=== PATIENT | female | born 1930 | race Caucasian/White ===

== ENCOUNTER → 2017-10-12 | Outpatient (CLI) | payer MEDICARE, OTHER ==
[2017-10-12 15:37] LABS: CREATINE KINASE 79 U/L (26-192); CREATININE 1.3 mg/dL (0.6-1.0); GFR 38.9
[2017-10-12 15:37] LABS: BLOOD UREA NITROGEN 34 mg/dL (7-20)
[2017-10-12 15:51] LABS: THYROID STIM HORMONE (TSH) 0.846 uIU/mL (0.358-3.74)
[2017-10-12 23:49] LABS: VITAMIN-B12 > 2000 pg/mL (247-911)
== END | disposition home or self-care (01) ==
LOC: LAB 15:01
DX: R26.81 Unsteadiness on feet (principal)
CPT/HCPCS: 36415; 82306; 82550; 82565; 82607; 84443; 84520

== ENCOUNTER → 2017-10-17 | Outpatient (CLI) | payer MEDICARE, OTHER | END | disposition home or self-care (01) | LOC: KCIC CT 09:51 | DX: M50.322 Other cervical disc degeneration at C5-C6 level (principal); M50.323 Other cervical disc degeneration at C6-C7 level; M43.12 Spondylolisthesis, cervical region | CPT/HCPCS: 72125 ==

== ENCOUNTER → 2017-10-23 | Outpatient (CLI) | payer MEDICARE, OTHER | END | disposition home or self-care (01) | LOC: RT 07:20 | DX: R55 Syncope and collapse (principal) | CPT/HCPCS: 95816 ==

== ENCOUNTER → 2017-11-07 | Outpatient (CLI) | payer MEDICARE, OTHER | END | disposition home or self-care (01) | LOC: KCIC US 12:04 | DX: I65.23 Occlusion and stenosis of bilateral carotid arteries (principal) | CPT/HCPCS: 93880 ==

== ENCOUNTER → 2017-11-15 | Outpatient (CLI) | payer MEDICARE, OTHER | END | disposition home or self-care (01) | LOC: KCIC MRI 08:48 | DX: M51.26 Other intervertebral disc displacement, lumbar region (principal); M48.061 Spinal stenosis, lumbar region without neurogenic claudication; M06.9 Rheumatoid arthritis, unspecified; M25.78 Osteophyte, vertebrae; M48.02 Spinal stenosis, cervical region; M47.892 Other spondylosis, cervical region; R29.6 Repeated falls | CPT/HCPCS: 72141; 72146; 72148 ==

== ENCOUNTER → 2018-01-31 | Outpatient (CLI) | payer MEDICARE, OTHER ==
[2018-01-31 11:11] LABS: CREATININE 1.3 mg/dL (0.6-1.0)
[2018-01-31 11:11] LABS: GFR 38.9
== END | disposition home or self-care (01) ==
LOC: CT 10:31
DX: I65.23 Occlusion and stenosis of bilateral carotid arteries (principal)
CPT/HCPCS: 36415; 82565

== ENCOUNTER → 2018-02-06 | Outpatient (CLI) | payer MEDICARE, OTHER ==
[~2018-02-06] MED LIST: CONTRAST GIVEN MC
[2018-02-06] MEDS: SODIUM BICARBONATE VIAL 150 MEQ in IV STERILE WATER 1,000 ML IV (08:12)
[2018-02-06] MEDS: IOHEXOL 300 MG/ML 100ML VIAL. IV (10:18)
== END | disposition home or self-care (01) ==
LOC: CT 06:52
DX: I65.23 Occlusion and stenosis of bilateral carotid arteries (principal); J43.9 Emphysema, unspecified; E03.9 Hypothyroidism, unspecified
CPT/HCPCS: 70498; Q9967

== ENCOUNTER → 2018-12-03 | Outpatient (CLI) | payer MEDICARE, OTHER ==
[2018-02-06 13:05] VITALS: BP 136/71
[~2018-12-03] MED LIST changes: +ASPI-482 PO; -CONTRAST GIVEN MC; +FLUO20TA11 PO; +FOLI1TAB16 PO; +HYDR-2765 PO; +METH2.5T PO; +OMEP20TA8 PO; +TOPI100T8 PO; +TRAM50TA PO
--- NOTE | 2018-12-03 10:56 | CARD ---
MR#: [id number] Date of Study: 12/03/2018 Ordering Physician: EFRAIN JAQUEZ, Referring Physician: EFRAIN JAQUEZ, Tech: Leon Dumont [facility] APPROVED REPORT EXAM: Two-dimensional and M-mode echocardiogram with Doppler and color Doppler. Other Information Quality : Good INDICATION Dyspnea 2D DIMENSIONS RVDd2.3 (2.9-3.5cm)Left Atrium(2D)2.7 (1.6-4.0cm) IVSd0.8 (0.7-1.1cm)Aortic Root(2D)3.0 (2.0-3.7cm) LVDd3.9 (3.9-5.9cm)LVOT Diameter1.8 (1.8-2.4cm) PWd0.9 (0.7-1.1cm)LVDs2.5 (2.5-4.0cm) SV35.8 mlLVEF(%)60.0 (>50%) Aortic Valve AoV Peak Ibrahima.117.3cm/sAoV VTI24.3cm AO Peak GR.5.5mmHgLVOT Peak Ibrahima.98.5cm/s LVOT VTI 22.76cmAO Mean GR.3mmHg REZA (VMAX)1.61kf6YQW (VTI)1.92cm2 Mitral Valve MV E Fwoznexn96.8cm/sMV DECEL WTZL097au MV A Femsjduc575.6cm/sMV E Mean Gr.3mmHg MV HOH42gyW/A Ratio0.7 MV A Grkgcfpz29fvEJF (PHT)2.71cm2 TDI E/Lateral E'6.7E/Medial E'8.8 Pulmonary Valve PV Peak Ojeuymjt16.7cm/sPV Peak Grad.4mmHg RVOT VTI15.4cm Tricuspid Valve TR P. Jncelely608ty/sTR Peak Gr.35mmHg Pulmonary Vein S1 Wzokxwqx39.5cm/sD2 Urpxyqzq55.8cm/s LEFT VENTRICLE The left ventricle is normal size. There is normal left ventricular wall thickness. The left ventricu lar systolic function is normal. The ejection fraction is estimated at 60%. There is normal LV segmen chon wall motion. Transmitral Doppler flow pattern is Grade I-abnormal relaxation pattern. There is no ventricular septal defect visualized. RIGHT VENTRICLE The right ventricle is normal size. There is normal right ventricular wall thickness. The right ventr icular systolic function is normal. ATRIA The left atrium size is normal. The right atrium size is normal. The interatrial septum is intact wit h no evidence for an atrial septal defect or patent foramen ovale as noted on 2-D or Doppler imaging. AORTIC VALVE The aortic valve is normal in structure and function. Doppler and Color Flow revealed trace aortic re gurgitation. There is no significant aortic valvular stenosis. MITRAL VALVE The mitral valve is normal in structure and function. Doppler and Color Flow revealed no mitral valve regurgitation noted. TRICUSPID VALVE The tricuspid valve is normal in structure and function. Doppler and Color Flow revealed mild tricusp id regurgitation. The PA pressure was estimated at 38 mmHg. PULMONIC VALVE The pulmonary valve is normal in structure and function. Doppler and Color Flow revealed trace pulmon ic valvular regurgitation. GREAT VESSELS The aortic root is normal in size. Normal pulmonary venous flow (Doppler). The IVC is normal in size and collapses >50% with inspiration. PERICARDIAL EFFUSION There is no evidence of significant pericardial effusion. Critical Notification Critical Value: No <Conclusion> The left ventricular systolic function is normal. The ejection fraction is estimated at 60%. There is normal LV segmental wall motion. Transmitral Doppler flow pattern is Grade I-abnormal relaxation pattern. Trace aortic regurgitation. Mild tricuspid regurgitation. The PA pressure was estimated at 38 mmHg. There is no evidence of significant pericardial effusion. Signed by : Tj Maldonado, Electronically Approved : 12/03/2018 10:56:20
== END | disposition home or self-care (01) ==
LOC: ECHO 09:29
PROVIDERS: ATTEND Internal Medicine Cardiovascular Disease
DX: I07.1 Rheumatic tricuspid insufficiency (principal)
CPT/HCPCS: 93306

== ENCOUNTER → 2019-02-11 | Outpatient (CLI) | payer MEDICARE, OTHER ==
[2018-02-06 13:05] VITALS: BP 136/71
--- NOTE | 2019-02-11 10:37 | EKG ---
[facility] [address] [place] [address] Test Date: 2019-02-11 Test Time: 10:28:09 Pat Name: NEW GUPTA Department: Room: Gender: F Switchboard Operator: DON : [id number] Requested By: CRUZ AREVALO Order Number: [id number] Reading MD: Measurements Intervals Bryant Rate: 64 P: 90 LA: 174 QRS: 80 QRSD: 80 T: 86 QT: 406 QTc: 423 Interpretive Statements SINUS RHYTHM NO SPECIFIC ECG ABNORMALITIES RI6.01 Unconfirmed report Compared to ECG 08/16/2016 08:31:54 No significant changes
== END | disposition home or self-care (01) ==
LOC: RAD 10:10
PROVIDERS: ATTEND Psychiatry & Neurology Neurology
DX: I49.1 Atrial premature depolarization (principal)
CPT/HCPCS: 93005

== ENCOUNTER → 2019-07-04 | Outpatient (CLI) | payer MEDICARE, OTHER ==
[2019-03-27 11:00] VITALS: BP 137/49
[~2019-07-04] MED LIST changes: +ASPI325T8 PO; +LEVO100T5 PO; +LOVA40TA2 PO; +TIZA4TAB2 PO
[2019-07-04 14:55] LABS: CREATININE 1.4 mg/dL (0.6-1.0); GFR 35.6; POTASSIUM 4.5 mmol/L (3.5-5.1)
== END | disposition home or self-care (01) ==
LOC: LAB 14:13
PROVIDERS: ATTEND Psychiatry & Neurology Neurology
DX: G43.009 Migraine without aura, not intractable, without status migrainosus (principal)
CPT/HCPCS: 36415; 80051; 82565; 84520

== ENCOUNTER → 2019-07-10 | Outpatient (CLI) | payer MEDICARE, OTHER ==
[2019-03-27 11:00] VITALS: BP 137/49
--- NOTE | 2019-07-10 17:07 | RAD ---
CT LUMBAR SPINE WO CONTRAST Indication: Weakness, back pain Technique: Noncontrast CT imaging was performed of the lumbar spine, multiplanar reconstruction images submitted. One or more of the following individualized dose reduction techniques were utilized for this examination: 1. Automated exposure control 2. Adjustment of the mA and/or kV according to patient size 3. Use of iterative reconstruction technique. Comparison: March 24, 2019 CT abdomen pelvis exam and 11/15/2017 lumbar spine MRI exam Findings: There is again advanced L2-3 degenerative disc disease, to a lesser degree more eccentric to left at L5-S1. Lumbar vertebral body stature is similar. There is again endplate irregularity and Schmorl's nodes at L2-3 and to lesser degree at L5-S1. There is mild lumbar levoscoliosis centered near L2-3, nasal left lateral subluxation L2 relative L3. AP alignment is within normal limits. No acute lumbar spine fracture is identified. There is retained stool in segments of the visualized colon. There is colonic diverticulosis. There is calcified plaque near the origins of the renal arteries bilaterally. T12-L1: Neural foramina and spinal canal are adequate. L1-2: There is mild facet degenerative change. Osseous spinal canal and neural foramina are adequate. L2-3: There is again disc osteophyte complex/partially calcified protrusion indenting the ventral thecal sac greatest centrally, spinal canal not significantly narrowed, likely minimal narrowing of the far lateral recesses. There is again facet degenerative change. Left neural foramen is adequate, shms-ac-eavvxost narrowing of the right neural foramen by disc osteophyte complex and facet osteophytes. L3-4: There is again facet degenerative change and buckling of the ligamentum flavum. There is likely unchanged mild narrowing of the far left lateral recess. Neural foramina are adequate. L4-L5: There is again facet degenerative change and buckling of the ligamentum flavum. There is aycp-qm-dqgspfxm narrowing of the far lateral recesses greater on the left, likely mild narrowing of the central canal. There is mild narrowing of the left neural foramen, right neural foramen overall adequate. L5-S1: There is again facet degenerative change. Spinal canal is not significantly narrowed. There is mild narrowing of the left neural foramen, disc osteophyte complex also contacting the extraforaminal left L5 nerve root. Right neural foramen is overall adequate. IMPRESSION: 1. Is likely eywf-uq-nbovkdcz narrowing of the far lateral recesses greater on the left at L4-5, likely mild narrowing of the far lateral recesses bilaterally at L2-3 and on the left at L3-4. 2. There is lbay-de-rivjmzmp narrowing of the right L2-3 neural foramen, minimal narrowing on the left at L4-5 and L5-S1. Disc osteophyte complex is near the extraforaminal left L5 nerve root at L5-S1. Electronically signed by: Jose Oreilly MD (07/10/2019 5:04 PM) [facility]
== END | disposition home or self-care (01) ==
LOC: CT 11:03
PROVIDERS: ATTEND Psychiatry & Neurology Neurology
DX: M51.37 Other intervertebral disc degeneration, lumbosacral region (principal); M48.07 Spinal stenosis, lumbosacral region; M47.817 Spondylosis without myelopathy or radiculopathy, lumbosacral region; M25.78 Osteophyte, vertebrae; K56.41 Fecal impaction; K57.30 Diverticulosis of large intestine without perforation or abscess without bleeding; I70.1 Atherosclerosis of renal artery; W19.XXXA Unspecified fall, initial encounter
CPT/HCPCS: 72131

== ENCOUNTER → 2019-10-21 | Outpatient (CLI) | payer MEDICARE, BC ==
[2019-10-03 11:00] VITALS: BP 142/68
[2019-10-21 10:36] LABS: BASO % 0 % (0-3); EOS # 0.2 x10^3/uL (0.0-0.7); EOS % 2 % (0-3); HEMATOCRIT 31.3 % (36.0-47.0); HEMOGLOBIN 10.2 g/dL (12.0-15.5); LYMPH # 2.1 x10^3/uL (1.0-4.8); LYMPH % 25 % (24-48); MEAN CORPUSCULAR HEMOGLOBIN 31 pg (25-35); MEAN CORPUSCULAR HGB CONC 33 g/dL (31-37); MEAN CORPUSCULAR VOLUME 94 fL (79-100); MONO # 0.6 x10^3/uL (0.0-1.1); MONO % 8 % (0-9); NEUT # 5.3 x10^3/uL (1.8-7.7); NEUT % 65 % (31-73); PLATELET COUNT 177 x10^3/uL (140-400); RED BLOOD COUNT 3.32 x10^6/uL (3.50-5.40); RED CELL DISTRIBUTION WIDTH 16.4 % (11.5-14.5); WHITE BLOOD COUNT 8.2 x10^3/uL (4.0-11.0)
== END | disposition home or self-care (01) ==
LOC: LAB 10:15
PROVIDERS: ATTEND Psychiatry & Neurology Neurology
DX: G43.701 Chronic migraine without aura, not intractable, with status migrainosus (principal)
CPT/HCPCS: 36415; 85025; 85651; 86141

== ENCOUNTER 2020-05-03 08:48 | Inpatient (IN) | payer MEDICARE, BC ==
[~2020-05-03] VITALS: Ht 167.6 cm; Wt 53.0 kg
[2020-05-03] MEDS ORDERED: IV NORMAL SALINE 1000ML BAG 1,000 ML IV SCH ×2 (09:32→13:07)
--- NOTE | 2020-05-03 09:42 | PHYS DOC ---
Past Medical History Past Medical History: Anemia, Arthritis, Cancer, Diverticulitis, Other Additional Past Medical Histor: Area of CA was colon. Past Surgical History: Appendectomy, Cancer Surgery, Cholecystectomy, Hysterectomy, Tonsillectomy, Other Additional Past Surgical Histo: 3 diff.sections of colon removed- ,&,Bilateral cataract surgery. Smoking Status: Never Smoker Alcohol Use: None Drug Use: None General Adult EDM: Chief Complaint: ABDOMINAL PAIN HPI: HPI: Patient is a 89 year old female who presents with 24 hours of crampy diffuse abdominal pain, diarrhea that is non-bloody and nausea. Patient has a history of diverticulitis and symptoms are similar to that. Patient describes the pain as cramping and moderate in severity that is worse with p.o. intake as well as palpation. Pain is nonradiating. Review of Systems: Review of Systems: Constitutional: Denies fever or chills. [] Eyes: Denies change in visual acuity. [] HENT: Denies nasal congestion or sore throat. [] Respiratory: Denies cough or shortness of breath. [] Cardiovascular: Denies chest pain or edema. [] GI: Complains of abdominal pain nausea and diarrhea but no vomiting or blood in her stool : Denies dysuria. [] Musculoskeletal: Denies back pain or joint pain. [] Integument: Denies rash. [] Neurologic: Denies headache, focal weakness or sensory changes. [] Endocrine: Denies polyuria or polydipsia. [] Lymphatic: Denies swollen glands. [] Psychiatric: Denies depression or anxiety. [] Heart Score: Risk Factors: Risk Factors: DM, Current or recent (<one month) smoker, HTN, HLP, family history of CAD, obesity. Risk Scores: Score 0 - 3: 2.5% MACE over next 6 weeks - Discharge Home Score 4 - 6: 20.3% MACE over next 6 weeks - Admit for Clinical Observation Score 7 - 10: 72.7% MACE over next 6 weeks - Early Invasive Strategies Current Medications: Current Medications Medications (Trade) Dose Ordered Sig/Ernst Start Time Stop Time Status Last Admin Dose Admin Dicyclomine HCl (Bentyl) 10 mg 1X ONCE 05/03/20 09:45 05/03/20 09:46 Ondansetron HCl (Zofran) 4 mg 1X ONCE 05/03/20 09:45 05/03/20 09:46 Sodium Chloride 1,000 ml @ 1,000 mls/hr Q1H 05/03/20 09:32 05/03/20 10:31 Allergies: Allergies: Allergies Coded Allergies Type Severity Reaction Last Updated Verified Penicillins Allergy Intermediate Hives 08/16/16 Yes meperidine Allergy Intermediate HAS TOLERATED FENTANYL 10/03/19 Yes morphine Adverse Reaction Intermediate PT STATED MORPHINE ALLERGIE, BUT STATES IT JUST "UPSETS" HER 10/02/19 Yes Physical Exam: PE: Constitutional: Well developed, well nourished, no acute distress, non-toxic appearance. [] HENT: Normocephalic, atraumatic, bilateral external ears normal, no trismus nose normal. [] Eyes: PERRLA, EOMI, conjunctiva normal, no discharge. [] Neck: Normal range of motion, no tenderness, supple, no stridor. [] Cardiovascular:Heart rate regular rhythm, peripheral pulses intact, cap refill is brisk Lungs & Thorax: Bilateral breath sounds clear, no respiratory distress Abdomen: soft, no tenderness, no masses, no pulsatile masses. [] Skin: Warm, dry, no erythema, no rash. [] Back: No tenderness, no CVA tenderness. [] Extremities: No tenderness, no cyanosis, no clubbing, ROM intact, no edema. [] Neurologic: Alert and oriented X 3, normal motor function, normal sensory function, no focal deficits noted. [] Psychologic: Affect normal, judgement normal, mood normal. [] Current Patient Data: Labs: Laboratory Tests Test 05/03/20 09:10 05/03/20 09:45 Urine Collection Type Void Urine Color Straw Urine Clarity Clear Urine pH 5.0 Urine Specific [place] 1.020 Urine Protein 30 mg/dL Urine Glucose (UA) Negative mg/dL Urine Ketones (Stick) Trace mg/dL Urine Blood Negative Urine Nitrite Negative Urine Bilirubin Small Urine Urobilinogen Dipstick 0.2 mg/dL Urine Leukocyte Esterase Trace Urine RBC 0 /HPF Urine WBC 1-4 /HPF Urine Amorphous Sediment Present /HPF Urine Bacteria Few /HPF Urine Hyaline Casts Moderate /HPF Urine Granular Casts Few /HPF Urine Mucus Mod /LPF White Blood Count 9.7 x10^3/uL Red Blood Count 4.09 x10^6/uL Hemoglobin 11.9 g/dL Hematocrit 36.4 % Mean Corpuscular Volume 89 fL Mean Corpuscular Hemoglobin 29 pg Mean Corpuscular Hemoglobin Concent 33 g/dL Red Cell Distribution Width 15.3 % Platelet Count 278 x10^3/uL Neutrophils (%) (Auto) 75 % Lymphocytes (%) (Auto) 17 % Monocytes (%) (Auto) 7 % Eosinophils (%) (Auto) 0 % Basophils (%) (Auto) 1 % Neutrophils # (Auto) 7.3 x10^3/uL Lymphocytes # (Auto) 1.7 x10^3/uL Monocytes # (Auto) 0.6 x10^3/uL Eosinophils # (Auto) 0.0 x10^3/uL Basophils # (Auto) 0.1 x10^3/uL Sodium Level 145 mmol/L Potassium Level 3.7 mmol/L Chloride Level 109 mmol/L Carbon Dioxide Level 20 mmol/L Anion Gap 16 Blood Urea Nitrogen 36 mg/dL Creatinine 1.1 mg/dL Estimated GFR (Cockcroft-Gault) 47.0 BUN/Creatinine Ratio 33 Glucose Level 121 mg/dL Lactic Acid Level 1.6 mmol/L Calcium Level 9.2 mg/dL Total Bilirubin 0.3 mg/dL Aspartate Amino Transf (AST/SGOT) 20 U/L Alanine Aminotransferase (ALT/SGPT) 20 U/L Alkaline Phosphatase 86 U/L Total Protein 7.0 g/dL Albumin 3.4 g/dL Albumin/Globulin Ratio 0.9 Lipase 43 U/L Current Medications Medications (Trade) Dose Ordered Sig/Ernst Route PRN Reason Start Time Stop Time Status Last Admin Dose Admin Sodium Chloride 1,000 ml @ 1,000 mls/hr Q1H IV 05/03/20 09:32 05/03/20 10:31 DC 05/03/20 09:57 Ondansetron HCl (Zofran) 4 mg 1X ONCE IVP 05/03/20 09:45 05/03/20 09:46 DC 05/03/20 09:57 Dicyclomine HCl (Bentyl) 10 mg 1X ONCE IM 05/03/20 09:45 05/03/20 09:46 DC 05/03/20 09:58 Iohexol (Omnipaque 300 Mg/ml) 60 ml 1X ONCE IV 05/03/20 10:45 05/03/20 10:46 DC 05/03/20 10:49 Levofloxacin/ Dextrose 150 ml @ 100 mls/hr 1X ONCE IV 05/03/20 11:30 05/03/20 12:59 Metronidazole 100 ml @ 100 mls/hr 1X ONCE IV 05/03/20 11:30 05/03/20 12:29 Ondansetron HCl (Zofran) 4 mg PRN Q8HRS PRN IV NAUSEA/VOMITING 05/03/20 11:30 05/04/20 11:29 Fentanyl Citrate (Fentanyl 2ml Vial) 12.5 mcg 1X ONCE IVP 05/03/20 11:30 05/03/20 11:43 DC Vital Signs: Vital Signs Date Time Temp Pulse Resp B/P (MAP) Pulse Ox O2 Delivery O2 Flow Rate FiO2 05/03/20 09:05 98.2 79 18 179/82 (114) 100 Room Air 98.2 EKG: EKG: [] Radiology/Procedures: Radiology/Procedures: [][facility] [address] [place], [place] [id number] IMAGING REPORT Signed PATIENT: NEW GUPTA HACCOUNT: [id number] : 1930 LOCATION: ER AGE: 89 SEX: F EXAM STATUS: REG ER ORD. PHYSICIAN: WILL HUTTON MD REASON: abd pain, diarrhea, hx of diverticulitis PROCEDURE: CT ABD PELV W/ IV CONTRST ONLY PQRS Compliance Statement: One or more of the following individualized dose reduction techniques were utilized for this examination: 1. Automated exposure control 2. Adjustment of the mA and/or kV according to patient size 3. Use of iterative reconstruction technique CT abdomen/pelvis with contrast 05/03/2020 9:32 AM INDICATION: Abdominal pain, diarrhea COMPARISON: None available TECHNIQUE: Multiple axial CT images of the abdomen and pelvis were obtained after the intravenous administration of 60 mL Omnipaque 300. Coronal and sagittal reformats are provided. FINDINGS: Lung bases are clear. Heart size is within normal limits. Calcifications within the spleen represent sequela prior granulomatous exposure. Gallbladder surgically absent. Mild intrahepatic and extra hepatic biliary ductal dilatation likely secondary to reservoir effect status post cholecystectomy. Mild fatty atrophy of the pancreas. Adrenal glands are normal in appearance. Abdominal aorta is normal in course and caliber with moderate calcified atheromatous plaque. No pathologically enlarged lymph nodes are identified in the abdomen and pelvis. No free fluid or free intraperitoneal air. The kidneys enhance symmetrically. There is no suspicious renal mass. There is no hydronephrosis. There are no suspected calculi within the kidneys, ureters or urinary bladder. There is presacral edema. Moderate colonic diverticulosis. There is mural edema involving the proximal sigmoid colon findings could reflect nonspecific colitis or diverticulitis. There is sequential bladder wall thickening with pericystic inflammatory changes. Appendix is not definitively visualized. No pericecal inflammatory changes are identified. No suspicious osseous abnormality is identified. IMPRESSION: 1. Colitis or diverticulitis involving the sigmoid colon without peridiverticular abscess or pneumoperitoneum. There is mesenteric edema with presacral edema. 2. Bladder wall thickening with pericystic inflammatory changes as may be seen with infectious or inflammatory cystitis. Findings could be reactive to adjacent inflammation. Electronically signed by: Roro Marquez MD (05/03/2020 11:05 AM) [facility] DICTATED and SIGNED BY: RORO MARQUEZ MD DATE: 05/03/20 1105 Course & Med Decision Making: Course & Med Decision Making Pertinent Labs and Imaging studies reviewed. (See chart for details) [] 89-year-old female presents with abdominal pain. Patient found to have diverticulitis on CT. Patient will need admission for IV antibiotics. Discussed with Dr. Crouch will admit Dragon Disclaimer: Shilpi Disclaimer: This electronic medical record was generated, in whole or in part, using a voice recognition dictation system. Departure Departure Impression: Primary Impression: Diverticulitis Additional Impression: Abdominal pain Disposition: 01 HOME, SELF-CARE Condition: STABLE Referrals: OREN ARCEO MD (PCP) Justicifation of Admission Dx: Justifications for Admission: Justification of Admission Dx: Yes WILL HUTTON MD May 03, 2020 09:42
[2020-05-03] MEDS ORDERED: ONDANSETRON PF 4 MG/2 ML VIAL. IVP ONE (09:45)
[2020-05-03] MEDS ORDERED: DICYCLOMINE 20 MG/2 ML VIAL. IM ONE (09:45)
[2020-05-03 10:09] LABS: BASO # 0.1 x10^3/uL (0.0-0.2); BASO % 1 % (0-3); EOS % 0 % (0-3); HEMATOCRIT 36.4 % (36.0-47.0); HEMOGLOBIN 11.9 g/dL (12.0-15.5); LYMPH # 1.7 x10^3/uL (1.0-4.8); LYMPH % 17 % (24-48); MEAN CORPUSCULAR HEMOGLOBIN 29 pg (25-35); MEAN CORPUSCULAR HGB CONC 33 g/dL (31-37); MEAN CORPUSCULAR VOLUME 89 fL (79-100); MONO # 0.6 x10^3/uL (0.0-1.1); MONO % 7 % (0-9); NEUT # 7.3 x10^3/uL (1.8-7.7); NEUT % 75 % (31-73); PLATELET COUNT 278 x10^3/uL (140-400); RED BLOOD COUNT 4.09 x10^6/uL (3.50-5.40); RED CELL DISTRIBUTION WIDTH 15.3 % (11.5-14.5); WHITE BLOOD COUNT 9.7 x10^3/uL (4.0-11.0)
[2020-05-03 10:27] LABS: CALCIUM 9.2 mg/dL (8.5-10.1); CREATININE 1.1 mg/dL (0.6-1.0); POTASSIUM 3.7 mmol/L (3.5-5.1)
[2020-05-03 10:41] LABS: ALBUMIN 3.4 g/dL (3.4-5.0); ALBUMIN/GLOBULIN RATIO 0.9 (1.0-1.7); TOTAL BILIRUBIN 0.3 mg/dL (0.2-1.0)
[2020-05-03] MEDS ORDERED: IOHEXOL 300 MG/ML 100ML VIAL. IV ONE (10:45)
[2020-05-03 10:57] LABS: BILIRUBIN,URINE SMALL (NEG); CLARITY,URINE CLEAR; COLOR,URINE STRAW
[2020-05-03 10:58] LABS: NITRITE,URINE NEGATIVE (NEG); PROTEIN,URINE 30 mg/dL (NEG-TRACE); UROBILINOGEN,URINE 0.2 mg/dL (0.2 mg/dL)
[2020-05-03 10:59] LABS: AMORPHOUS SEDIMENT,UR PRESENT /HPF; BACTERIA,URINE FEW /HPF (0-FEW); RBC,URINE 0 /HPF (0-2)
[2020-05-03 11:00] LABS: GRANULAR CASTS,URINE FEW /HPF; HYALINE CASTS, URINE MODERATE /HPF
--- NOTE | 2020-05-03 11:08 | RAD ---
PQRS Compliance Statement: One or more of the following individualized dose reduction techniques were utilized for this examination: 1. Automated exposure control 2. Adjustment of the mA and/or kV according to patient size 3. Use of iterative reconstruction technique CT abdomen/pelvis with contrast 05/03/2020 9:32 AM INDICATION: Abdominal pain, diarrhea COMPARISON: None available TECHNIQUE: Multiple axial CT images of the abdomen and pelvis were obtained after the intravenous administration of 60 mL Omnipaque 300. Coronal and sagittal reformats are provided. FINDINGS: Lung bases are clear. Heart size is within normal limits. Calcifications within the spleen represent sequela prior granulomatous exposure. Gallbladder surgically absent. Mild intrahepatic and extra hepatic biliary ductal dilatation likely secondary to reservoir effect status post cholecystectomy. Mild fatty atrophy of the pancreas. Adrenal glands are normal in appearance. Abdominal aorta is normal in course and caliber with moderate calcified atheromatous plaque. No pathologically enlarged lymph nodes are identified in the abdomen and pelvis. No free fluid or free intraperitoneal air. The kidneys enhance symmetrically. There is no suspicious renal mass. There is no hydronephrosis. There are no suspected calculi within the kidneys, ureters or urinary bladder. There is presacral edema. Moderate colonic diverticulosis. There is mural edema involving the proximal sigmoid colon findings could reflect nonspecific colitis or diverticulitis. There is sequential bladder wall thickening with pericystic inflammatory changes. Appendix is not definitively visualized. No pericecal inflammatory changes are identified. No suspicious osseous abnormality is identified. IMPRESSION: 1. Colitis or diverticulitis involving the sigmoid colon without peridiverticular abscess or pneumoperitoneum. There is mesenteric edema with presacral edema. 2. Bladder wall thickening with pericystic inflammatory changes as may be seen with infectious or inflammatory cystitis. Findings could be reactive to adjacent inflammation. Electronically signed by: Maxine Madden MD (05/03/2020 11:05 AM) [facility]
[2020-05-03] MEDS ORDERED: ONDANSETRON PF 4 MG/2 ML VIAL. IV PRN (11:30)
[2020-05-03] MEDS ORDERED: fentaNYL PF VIAL 100 MCG/2 ML VIAL IVP ONE (11:30)
--- NOTE | 2020-05-03 11:54 | PDOC1 ---
History and Physical Date of Admission Date of Admission DATE: 05/03/20 TIME: 11:52 Identification/Chief Complaint Chief Complaint SEEN IN ER WITH ACUTE DIVERTICULITIS, 89 year old female who presents with 24 hours of crampy diffuse abdominal pain, diarrhea that is non-bloody and nausea. Patient has a history of diverticulitis and symptoms are similar Patient describes the pain as cramping and moderate in severity that is worse with p.o. intake as well as palpation. // nonradiating. Past Medical History Past Medical History Past Medical History Past Medical History Past Medical History: Anemia, Arthritis, Cancer, Diverticulitis, Other Additional Past Medical Histor: Area of CA was colon. Past Surgical History: Appendectomy, Cancer Surgery, Cholecystectomy, Hysterectomy, Tonsillectomy, Other Additional Past Surgical Histo: 3 diff.sections of colon removed- ,&,Bilateral cataract surgery. Smoking Status: Never Smoker Alcohol Use: None Drug Use: None FHX HTN Cardiovascular: Hyperlipidemia Pulmonary: No pertinent hx CENTRAL NERVOUS SYSTEM: Migraine GI: Constipation Heme/Onc: Anemia NOS, Cancer Hepatobiliary: No pertinent hx Psych: No pertinent hx Rheumatologic: Rheumatoid arthritis Infectious disease: No pertinent hx Renal/: No pertinent hx Endocrine: Osteopenia Past Surgical History Past Surgical History: Appendectomy, Cholecystectomy, Cataract Removal, Tonsillectomy, Hysterectomy, Colon Resection Family History Family History: Hypertension, Family History Unknown Social History Smoke: <1 pack per day ALCOHOL: none Drugs: None Current Problem List Problem List Problems Medical Problems: (1) Abdominal pain Status: Acute (2) Diverticulitis Status: Acute Current Medications Current Medications Current Medications Sodium Chloride 1,000 ml @ 1,000 mls/hr Q1H IV Last administered on 05/03/20at 09:57; Start 05/03/20 at 09:32; Stop 05/03/20 at 10:31; Status DC Ondansetron HCl (Zofran) 4 mg 1X ONCE IVP Last administered on 05/03/20at 09:57; Start 05/03/20 at 09:45; Stop 05/03/20 at 09:46; Status DC Dicyclomine HCl (Bentyl) 10 mg 1X ONCE IM Last administered on 05/03/20at 09:58; Start 05/03/20 at 09:45; Stop 05/03/20 at 09:46; Status DC Iohexol (Omnipaque 300 Mg/ml) 60 ml 1X ONCE IV Last administered on 05/03/20at 10:49; Start 05/03/20 at 10:45; Stop 05/03/20 at 10:46; Status DC Levofloxacin/ Dextrose 150 ml @ 100 mls/hr 1X ONCE IV ; Start 05/03/20 at 11:30; Stop 05/03/20 at 12:59 Metronidazole 100 ml @ 100 mls/hr 1X ONCE IV ; Start 05/03/20 at 11:30; Stop 05/03/20 at 12:29 Ondansetron HCl (Zofran) 4 mg PRN Q8HRS PRN IV NAUSEA/VOMITING; Start 05/03/20 at 11:30; Stop 05/04/20 at 11:29 Fentanyl Citrate (Fentanyl 2ml Vial) 12.5 mcg 1X ONCE IVP ; Start 05/03/20 at 11:30; Stop 05/03/20 at 11:43; Status DC Active Scripts Active Reported Tizanidine Hcl 4 Mg Tablet 4 Mg PO PRN Q8MIN PRN Lovastatin 40 Mg Tablet 40 Mg PO DAILY Levothyroxine Sodium 100 Mcg Tablet 100 Mcg PO DAILY Aspirin 325 Mg Tablet 325 Mg PO DAILY Hydrocodone-Apap 7.5-325 (Hydrocodone Bit/Acetaminophen) 1 Each Tablet 1 Tab PO PRN Q6HRS PRN Topiramate 100 Mg Tablet 1 Tab PO BID Tramadol Hcl 50 Mg Tablet 50-100 Mg PO PRN Q6HRS Fluoxetine Hcl 20 Mg Tablet 20 Mg PO DAILY Omeprazole 20 Mg Tablet.dr 20 Mg PO DAILY Folic Acid 1 Mg Tablet 1 Mg PO DAILY Methotrexate (Methotrexate Sodium) 2.5 Mg Tablet 15 Mg PO MONDAY Allergies Allergies: Coded Allergies: Penicillins (Verified Allergy, Intermediate, Hives, 08/16/16) meperidine (Verified Allergy, Intermediate, HAS TOLERATED FENTANYL, 10/03/19) morphine (Verified Adverse Reaction, Intermediate, PT STATED MORPHINE ALLERGIE, BUT STATES IT JUST "UPSETS" HER, 10/02/19) ROS Review of System Review of Systems: Constitutional: Denies fever or chills. [] Eyes: Denies change in visual acuity. [] HENT: Denies nasal congestion or sore throat. [] Respiratory: Denies cough or shortness of breath. [] Cardiovascular: Denies chest pain or edema. [] GI: Complains of abdominal pain nausea and diarrhea but no vomiting or blood in her stool : Denies dysuria. [] Musculoskeletal: Denies back pain or joint pain. [] Integument: Denies rash. [] Neurologic: Denies headache, focal weakness or sensory changes. [] Endocrine: Denies polyuria or polydipsia. [] Lymphatic: Denies swollen glands. [] Psychiatric: Denies depression or anxiety. [] 14 pt ros otherwise neg Physical Exam Physical Exam Constitutional: Well developed, well nourished, no acute distress, non-toxic appearance. [] HENT: Normocephalic, atraumatic, bilateral external ears normal, no trismus nose normal. [] Eyes: PERRLA, EOMI, conjunctiva normal, no discharge. [] Neck: Normal range of motion, no tenderness, supple, no stridor. [] Cardiovascular:Heart rate regular rhythm, peripheral pulses intact, cap refill is brisk Lungs & Thorax: Bilateral breath sounds clear, no respiratory distress Abdomen: soft, no tenderness, no masses, no pulsatile masses. [] Skin: Warm, dry, no erythema, no rash. [] Back: No tenderness, no CVA tenderness. [] Extremities: No tenderness, no cyanosis, no clubbing, ROM intact, no edema. [] Neurologic: Alert and oriented X 3, normal motor function, normal sensory function, no focal deficits noted. [] Psychologic: Affect normal, judgment normal, mood normal. [] General: Alert, Oriented X3, Cooperative, No acute distress Lungs: Clear to auscultation, Normal air movement Heart: no murmurs Breasts: Not examined Abdomen: Soft Rectal Exam: not examined Extremities: No cyanosis Skin: No significant lesion Neuro: Normal speech, Cranial nerves 3-12 NL Psych/Mental Status: Mental status NL, Mood NL Vitals Vitals Vital Signs Date Time Temp Pulse Resp B/P (MAP) Pulse Ox O2 Delivery O2 Flow Rate FiO2 05/03/20 09:05 98.2 79 18 179/82 (114) 100 Room Air 98.2 Labs Labs Laboratory Tests Test 05/03/20 09:10 05/03/20 09:45 Urine Collection Type Void Urine Color Straw Urine Clarity Clear Urine pH 5.0 (<5.0-8.0) Urine Specific [place] 1.020 (1.000-1.030) Urine Protein 30 mg/dL (NEG-TRACE) Urine Glucose (UA) Negative mg/dL (NEG) Urine Ketones (Stick) Trace mg/dL (NEG) Urine Blood Negative (NEG) Urine Nitrite Negative (NEG) Urine Bilirubin Small (NEG) Urine Urobilinogen Dipstick 0.2 mg/dL (0.2 mg/dL) Urine Leukocyte Esterase Trace (NEG) Urine RBC 0 /HPF (0-2) Urine WBC 1-4 /HPF (0-4) Urine Amorphous Sediment Present /HPF Urine Bacteria Few /HPF (0-FEW) Urine Hyaline Casts Moderate /HPF Urine Granular Casts Few /HPF Urine Mucus Mod /LPF White Blood Count 9.7 x10^3/uL (4.0-11.0) Red Blood Count 4.09 x10^6/uL (3.50-5.40) Hemoglobin 11.9 g/dL (12.0-15.5) Hematocrit 36.4 % (36.0-47.0) Mean Corpuscular Volume 89 fL (79-100) Mean Corpuscular Hemoglobin 29 pg (25-35) Mean Corpuscular Hemoglobin Concent 33 g/dL (31-37) Red Cell Distribution Width 15.3 % (11.5-14.5) Platelet Count 278 x10^3/uL (140-400) Neutrophils (%) (Auto) 75 % (31-73) Lymphocytes (%) (Auto) 17 % (24-48) Monocytes (%) (Auto) 7 % (0-9) Eosinophils (%) (Auto) 0 % (0-3) Basophils (%) (Auto) 1 % (0-3) Neutrophils # (Auto) 7.3 x10^3/uL (1.8-7.7) Lymphocytes # (Auto) 1.7 x10^3/uL (1.0-4.8) Monocytes # (Auto) 0.6 x10^3/uL (0.0-1.1) Eosinophils # (Auto) 0.0 x10^3/uL (0.0-0.7) Basophils # (Auto) 0.1 x10^3/uL (0.0-0.2) Sodium Level 145 mmol/L (136-145) Potassium Level 3.7 mmol/L (3.5-5.1) Chloride Level 109 mmol/L (98-107) Carbon Dioxide Level 20 mmol/L (21-32) Anion Gap 16 (6-14) Blood Urea Nitrogen 36 mg/dL (7-20) Creatinine 1.1 mg/dL (0.6-1.0) Estimated GFR (Cockcroft-Gault) 47.0 BUN/Creatinine Ratio 33 (6-20) Glucose Level 121 mg/dL (70-99) Lactic Acid Level 1.6 mmol/L (0.4-2.0) Calcium Level 9.2 mg/dL (8.5-10.1) Total Bilirubin 0.3 mg/dL (0.2-1.0) Aspartate Amino Transf (AST/SGOT) 20 U/L (15-37) Alanine Aminotransferase (ALT/SGPT) 20 U/L (14-59) Alkaline Phosphatase 86 U/L (46-116) Total Protein 7.0 g/dL (6.4-8.2) Albumin 3.4 g/dL (3.4-5.0) Albumin/Globulin Ratio 0.9 (1.0-1.7) Lipase 43 U/L (73-393) Laboratory Tests Test 05/03/20 09:10 05/03/20 09:45 Urine Collection Type Void Urine Color Straw Urine Clarity Clear Urine pH 5.0 (<5.0-8.0) Urine Specific [place] 1.020 (1.000-1.030) Urine Protein 30 mg/dL (NEG-TRACE) Urine Glucose (UA) Negative mg/dL (NEG) Urine Ketones (Stick) Trace mg/dL (NEG) Urine Blood Negative (NEG) Urine Nitrite Negative (NEG) Urine Bilirubin Small (NEG) Urine Urobilinogen Dipstick 0.2 mg/dL (0.2 mg/dL) Urine Leukocyte Esterase Trace (NEG) Urine RBC 0 /HPF (0-2) Urine WBC 1-4 /HPF (0-4) Urine Amorphous Sediment Present /HPF Urine Bacteria Few /HPF (0-FEW) Urine Hyaline Casts Moderate /HPF Urine Granular Casts Few /HPF Urine Mucus Mod /LPF White Blood Count 9.7 x10^3/uL (4.0-11.0) Red Blood Count 4.09 x10^6/uL (3.50-5.40) Hemoglobin 11.9 g/dL (12.0-15.5) Hematocrit 36.4 % (36.0-47.0) Mean Corpuscular Volume 89 fL (79-100) Mean Corpuscular Hemoglobin 29 pg (25-35) Mean Corpuscular Hemoglobin Concent 33 g/dL (31-37) Red Cell Distribution Width 15.3 % (11.5-14.5) Platelet Count 278 x10^3/uL (140-400) Neutrophils (%) (Auto) 75 % (31-73) Lymphocytes (%) (Auto) 17 % (24-48) Monocytes (%) (Auto) 7 % (0-9) Eosinophils (%) (Auto) 0 % (0-3) Basophils (%) (Auto) 1 % (0-3) Neutrophils # (Auto) 7.3 x10^3/uL (1.8-7.7) Lymphocytes # (Auto) 1.7 x10^3/uL (1.0-4.8) Monocytes # (Auto) 0.6 x10^3/uL (0.0-1.1) Eosinophils # (Auto) 0.0 x10^3/uL (0.0-0.7) Basophils # (Auto) 0.1 x10^3/uL (0.0-0.2) Sodium Level 145 mmol/L (136-145) Potassium Level 3.7 mmol/L (3.5-5.1) Chloride Level 109 mmol/L (98-107) Carbon Dioxide Level 20 mmol/L (21-32) Anion Gap 16 (6-14) Blood Urea Nitrogen 36 mg/dL (7-20) Creatinine 1.1 mg/dL (0.6-1.0) Estimated GFR (Cockcroft-Gault) 47.0 BUN/Creatinine Ratio 33 (6-20) Glucose Level 121 mg/dL (70-99) Lactic Acid Level 1.6 mmol/L (0.4-2.0) Calcium Level 9.2 mg/dL (8.5-10.1) Total Bilirubin 0.3 mg/dL (0.2-1.0) Aspartate Amino Transf (AST/SGOT) 20 U/L (15-37) Alanine Aminotransferase (ALT/SGPT) 20 U/L (14-59) Alkaline Phosphatase 86 U/L (46-116) Total Protein 7.0 g/dL (6.4-8.2) Albumin 3.4 g/dL (3.4-5.0) Albumin/Globulin Ratio 0.9 (1.0-1.7) Lipase 43 U/L (73-393) Images Images PQRS Compliance Statement: One or more of the following individualized dose reduction techniques were utilized for this examination: 1. Automated exposure control 2. Adjustment of the mA and/or kV according to patient size 3. Use of iterative reconstruction technique CT abdomen/pelvis with contrast 05/03/2020 9:32 AM INDICATION: Abdominal pain, diarrhea COMPARISON: None available TECHNIQUE: Multiple axial CT images of the abdomen and pelvis were obtained after the intravenous administration of 60 mL Omnipaque 300. Coronal and sagittal reformats are provided. FINDINGS: Lung bases are clear. Heart size is within normal limits. Calcifications within the spleen represent sequela prior granulomatous exposure. Gallbladder surgically absent. Mild intrahepatic and extra hepatic biliary ductal dilatation likely secondary to reservoir effect status post cholecystectomy. Mild fatty atrophy of the pancreas. Adrenal glands are normal in appearance. Abdominal aorta is normal in course and caliber with moderate calcified atheromatous plaque. No pathologically enlarged lymph nodes are identified in the abdomen and pelvis. No free fluid or free intraperitoneal air. The kidneys enhance symmetrically. There is no suspicious renal mass. There is no hydronephrosis. There are no suspected calculi within the kidneys, ureters or urinary bladder. There is presacral edema. Moderate colonic diverticulosis. There is mural edema involving the proximal sigmoid colon findings could reflect nonspecific colitis or diverticulitis. There is sequential bladder wall thickening with pericystic inflammatory changes. Appendix is not definitively visualized. No pericecal inflammatory changes are identified. No suspicious osseous abnormality is identified. IMPRESSION: 1. Colitis or diverticulitis involving the sigmoid colon without peridiverticular abscess or pneumoperitoneum. There is mesenteric edema with presacral edema. 2. Bladder wall thickening with pericystic inflammatory changes as may be seen with infectious or inflammatory cystitis. Findings could be reactive to adjacent inflammation. Electronically signed by: Roro Madden MD (05/03/2020 11:05 AM) [facility] DICTATED and SIGNED BY: RORO MADDEN MD DATE: 05/03/20 110 VTE Prophylaxis Ordered VTE Prophylaxis Devices: Yes VTE Pharmacological Prophylaxi: Yes Assessment/Plan Assessment/Plan IMPRESSION: 1. ACUTE diverticulitis involving the sigmoid colon without peridiverticular abscess or pneumoperitoneum. LIKELY ISCHEMIC There is mesenteric edema with presacral edema. 2. Bladder wall thickening with pericystic inflammatory changes as may be seen with infectious or inflammatory cystitis. 3. CKD STAGE 3 4. metabolic acidosis 5. 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 PLAN ADMIT gi consult emperic iv antibiotics npo IV FLUID SUPPORT BOWEL REST Full code IV PAIN CONTROL dvt prophylaxis Justicifation of Admission Dx: Justifications for Admission: Justification of Admission Dx: Yes BHANU SPARKS MD May 03, 2020 11:54
[2020-05-03] MEDS: IV NORMAL SALINE 1000ML BAG 1,000 ML IV SCH (12:59)
[2020-05-03 13:07] VITALS: BP 162/52
[2020-05-03] MEDS ORDERED: FERR325T14 PO (13:11)
[2020-05-03] MEDS ORDERED: ACETAMINOPHEN 325 MG TABLET. PO PRN (13:15)
[2020-05-03] MEDS ORDERED: DOCUSATE SODIUM 100 MG CAPSULE. PO PRN (13:15)
[2020-05-03] MEDS ORDERED: guaiFENesin ORAL 200 MG/10 ML LIQUID. PO PRN (13:15)
[2020-05-03] MEDS ORDERED: cloNIDine HCL 0.1 MG TABLET PO PRN (13:15)
[2020-05-03] MEDS ORDERED: 0.9 % SODIUM CHLORIDE 10 ML DISP.SYRIN. IV PRN (13:15)
[2020-05-03] MEDS: IPRATRPIUM/ALBUTEROL 0.5/2.5MG 3 ML NEBU. NEB SCH ×3 (13:15→20:21)
--- NOTE | 2020-05-03 13:45 | PDOC2 ---
CONSULT Date of Consult Date of Consult DATE: 05/03/20 TIME: 13:43 Reason for Consult Reason for Consult: LLQ pain/diarrhea/hx colon cancer s/p resection Past Medical History Cardiovascular: Hyperlipidemia Pulmonary: No pertinent hx CENTRAL NERVOUS SYSTEM: Migraine GI: Constipation Heme/Onc: Anemia NOS, Cancer Hepatobiliary: No pertinent hx Psych: No pertinent hx Rheumatologic: Rheumatoid arthritis Infectious disease: No pertinent hx Renal/: No pertinent hx Endocrine: Osteopenia Past Surgical History Past Surgical History: Appendectomy, Cholecystectomy, Cataract Removal, Tonsillectomy, Hysterectomy, Colon Resection Family History Family History: Family History Unknown Social History ALCOHOL: none Drugs: None Current Problem List Problem List Problems Medical Problems: (1) Abdominal pain Status: Acute (2) Diverticulitis Status: Acute Current Medications Current Medications Current Medications Sodium Chloride 1,000 ml @ 1,000 mls/hr Q1H IV Last administered on 05/03/20at 09:57; Start 05/03/20 at 09:32; Stop 05/03/20 at 10:31; Status DC Ondansetron HCl (Zofran) 4 mg 1X ONCE IVP Last administered on 05/03/20at 09:57; Start 05/03/20 at 09:45; Stop 05/03/20 at 09:46; Status DC Dicyclomine HCl (Bentyl) 10 mg 1X ONCE IM Last administered on 05/03/20at 09:58; Start 05/03/20 at 09:45; Stop 05/03/20 at 09:46; Status DC Iohexol (Omnipaque 300 Mg/ml) 60 ml 1X ONCE IV Last administered on 05/03/20at 10:49; Start 05/03/20 at 10:45; Stop 05/03/20 at 10:46; Status DC Levofloxacin/ Dextrose 150 ml @ 100 mls/hr 1X ONCE IV Last administered on 05/03/20at 12:59; Start 05/03/20 at 11:30; Stop 05/03/20 at 12:59; Status DC Metronidazole 100 ml @ 100 mls/hr 1X ONCE IV Last administered on 05/03/20at 11:56; Start 05/03/20 at 11:30; Stop 05/03/20 at 12:29; Status DC Ondansetron HCl (Zofran) 4 mg PRN Q8HRS PRN IV NAUSEA/VOMITING; Start 05/03/20 at 11:30; Stop 05/03/20 at 13:38; Status DC Fentanyl Citrate (Fentanyl 2ml Vial) 12.5 mcg 1X ONCE IVP Last administered on 05/03/20at 11:55; Start 05/03/20 at 11:30; Stop 05/03/20 at 11:43; Status DC Sodium Chloride 1,000 ml @ 80 mls/hr [id number] IV Last administered on 05/03/20at 12:59; Start 05/03/20 at 13:00 Sodium Chloride (Normal Saline Flush) 3 ml QSHIFT PRN IV AFTER MEDS AND BLOOD DRAWS; Start 05/03/20 at 13:15 Sodium Chloride 1,000 ml @ 80 mls/hr [id number] IV ; Start 05/03/20 at 13:07; Status UNV Ondansetron HCl (Zofran) 4 mg PRN Q4HRS PRN IV NAUSEA/VOMITING; Start 05/03/20 at 13:15 Acetaminophen (Tylenol) 650 mg PRN Q4HRS PRN PO TEMP OVER 100.4F OR MILD PAIN; Start 05/03/20 at 13:15 Clonidine HCl (Catapres) 0.1 mg PRN Q6HRS PRN PO SBP>160 OR DBP>90; Start 05/03/20 at 13:15 Docusate Sodium (Colace) 100 mg PRN BID PRN PO HARD STOOLS; Start 05/03/20 at 13:15 Albuterol/ Ipratropium (Duoneb) 3 ml Q4HRS NEB ; Start 05/03/20 at 13:15 Guaifenesin (Robitussin) 200 mg PRN Q4HRS PRN PO COUGH; Start 05/03/20 at 13:15 Enoxaparin Sodium (Lovenox 40mg Syringe) 40 mg Q24H SQ ; Start 05/03/20 at 14:00 Levofloxacin/ Dextrose 50 ml @ 50 mls/hr Q24H IV ; Start 05/04/20 at 13:00 Metronidazole 100 ml @ 100 mls/hr Q12HR IV ; Start 05/03/20 at 21:00 Active Scripts Active Reported Ferrous Sulfate 325 Mg Tablet 325 Mg PO DAILY Tizanidine Hcl 4 Mg Tablet 4 Mg PO PRN Q8MIN PRN Lovastatin 40 Mg Tablet 40 Mg PO DAILY Levothyroxine Sodium 100 Mcg Tablet 100 Mcg PO DAILY Aspirin 325 Mg Tablet 325 Mg PO DAILY Hydrocodone-Apap 7.5-325 (Hydrocodone Bit/Acetaminophen) 1 Each Tablet 1 Tab PO PRN Q6HRS PRN Topiramate 100 Mg Tablet 1 Tab PO BID Fluoxetine Hcl 20 Mg Tablet 20 Mg PO DAILY Omeprazole 20 Mg Tablet.dr 20 Mg PO DAILY Folic Acid 1 Mg Tablet 1 Mg PO DAILY Allergies Allergies: Coded Allergies: Penicillins (Verified Allergy, Intermediate, Hives, 08/16/16) meperidine (Verified Allergy, Intermediate, HAS TOLERATED FENTANYL, 10/03/19) morphine (Verified Adverse Reaction, Intermediate, PT STATED MORPHINE ALLERGIE, BUT STATES IT JUST "UPSETS" HER, 10/02/19) Vitals VITALS Vital Signs Date Time Temp Pulse Resp B/P (MAP) Pulse Ox O2 Delivery O2 Flow Rate FiO2 05/03/20 13:07 98.3 62 16 162/52 (88) 96 Room Air 98.3 Labs Labs Laboratory Tests Test 05/03/20 09:10 05/03/20 09:45 Urine Collection Type Void Urine Color Straw Urine Clarity Clear Urine pH 5.0 (<5.0-8.0) Urine Specific [place] 1.020 (1.000-1.030) Urine Protein 30 mg/dL (NEG-TRACE) Urine Glucose (UA) Negative mg/dL (NEG) Urine Ketones (Stick) Trace mg/dL (NEG) Urine Blood Negative (NEG) Urine Nitrite Negative (NEG) Urine Bilirubin Small (NEG) Urine Urobilinogen Dipstick 0.2 mg/dL (0.2 mg/dL) Urine Leukocyte Esterase Trace (NEG) Urine RBC 0 /HPF (0-2) Urine WBC 1-4 /HPF (0-4) Urine Amorphous Sediment Present /HPF Urine Bacteria Few /HPF (0-FEW) Urine Hyaline Casts Moderate /HPF Urine Granular Casts Few /HPF Urine Mucus Mod /LPF White Blood Count 9.7 x10^3/uL (4.0-11.0) Red Blood Count 4.09 x10^6/uL (3.50-5.40) Hemoglobin 11.9 g/dL (12.0-15.5) Hematocrit 36.4 % (36.0-47.0) Mean Corpuscular Volume 89 fL (79-100) Mean Corpuscular Hemoglobin 29 pg (25-35) Mean Corpuscular Hemoglobin Concent 33 g/dL (31-37) Red Cell Distribution Width 15.3 % (11.5-14.5) Platelet Count 278 x10^3/uL (140-400) Neutrophils (%) (Auto) 75 % (31-73) Lymphocytes (%) (Auto) 17 % (24-48) Monocytes (%) (Auto) 7 % (0-9) Eosinophils (%) (Auto) 0 % (0-3) Basophils (%) (Auto) 1 % (0-3) Neutrophils # (Auto) 7.3 x10^3/uL (1.8-7.7) Lymphocytes # (Auto) 1.7 x10^3/uL (1.0-4.8) Monocytes # (Auto) 0.6 x10^3/uL (0.0-1.1) Eosinophils # (Auto) 0.0 x10^3/uL (0.0-0.7) Basophils # (Auto) 0.1 x10^3/uL (0.0-0.2) Sodium Level 145 mmol/L (136-145) Potassium Level 3.7 mmol/L (3.5-5.1) Chloride Level 109 mmol/L (98-107) Carbon Dioxide Level 20 mmol/L (21-32) Anion Gap 16 (6-14) Blood Urea Nitrogen 36 mg/dL (7-20) Creatinine 1.1 mg/dL (0.6-1.0) Estimated GFR (Cockcroft-Gault) 47.0 BUN/Creatinine Ratio 33 (6-20) Glucose Level 121 mg/dL (70-99) Lactic Acid Level 1.6 mmol/L (0.4-2.0) Calcium Level 9.2 mg/dL (8.5-10.1) Total Bilirubin 0.3 mg/dL (0.2-1.0) Aspartate Amino Transf (AST/SGOT) 20 U/L (15-37) Alanine Aminotransferase (ALT/SGPT) 20 U/L (14-59) Alkaline Phosphatase 86 U/L (46-116) Total Protein 7.0 g/dL (6.4-8.2) Albumin 3.4 g/dL (3.4-5.0) Albumin/Globulin Ratio 0.9 (1.0-1.7) Lipase 43 U/L (73-393) Laboratory Tests Test 05/03/20 09:10 05/03/20 09:45 Urine Collection Type Void Urine Color Straw Urine Clarity Clear Urine pH 5.0 (<5.0-8.0) Urine Specific [place] 1.020 (1.000-1.030) Urine Protein 30 mg/dL (NEG-TRACE) Urine Glucose (UA) Negative mg/dL (NEG) Urine Ketones (Stick) Trace mg/dL (NEG) Urine Blood Negative (NEG) Urine Nitrite Negative (NEG) Urine Bilirubin Small (NEG) Urine Urobilinogen Dipstick 0.2 mg/dL (0.2 mg/dL) Urine Leukocyte Esterase Trace (NEG) Urine RBC 0 /HPF (0-2) Urine WBC 1-4 /HPF (0-4) Urine Amorphous Sediment Present /HPF Urine Bacteria Few /HPF (0-FEW) Urine Hyaline Casts Moderate /HPF Urine Granular Casts Few /HPF Urine Mucus Mod /LPF White Blood Count 9.7 x10^3/uL (4.0-11.0) Red Blood Count 4.09 x10^6/uL (3.50-5.40) Hemoglobin 11.9 g/dL (12.0-15.5) Hematocrit 36.4 % (36.0-47.0) Mean Corpuscular Volume 89 fL (79-100) Mean Corpuscular Hemoglobin 29 pg (25-35) Mean Corpuscular Hemoglobin Concent 33 g/dL (31-37) Red Cell Distribution Width 15.3 % (11.5-14.5) Platelet Count 278 x10^3/uL (140-400) Neutrophils (%) (Auto) 75 % (31-73) Lymphocytes (%) (Auto) 17 % (24-48) Monocytes (%) (Auto) 7 % (0-9) Eosinophils (%) (Auto) 0 % (0-3) Basophils (%) (Auto) 1 % (0-3) Neutrophils # (Auto) 7.3 x10^3/uL (1.8-7.7) Lymphocytes # (Auto) 1.7 x10^3/uL (1.0-4.8) Monocytes # (Auto) 0.6 x10^3/uL (0.0-1.1) Eosinophils # (Auto) 0.0 x10^3/uL (0.0-0.7) Basophils # (Auto) 0.1 x10^3/uL (0.0-0.2) Sodium Level 145 mmol/L (136-145) Potassium Level 3.7 mmol/L (3.5-5.1) Chloride Level 109 mmol/L (98-107) Carbon Dioxide Level 20 mmol/L (21-32) Anion Gap 16 (6-14) Blood Urea Nitrogen 36 mg/dL (7-20) Creatinine 1.1 mg/dL (0.6-1.0) Estimated GFR (Cockcroft-Gault) 47.0 BUN/Creatinine Ratio 33 (6-20) Glucose Level 121 mg/dL (70-99) Lactic Acid Level 1.6 mmol/L (0.4-2.0) Calcium Level 9.2 mg/dL (8.5-10.1) Total Bilirubin 0.3 mg/dL (0.2-1.0) Aspartate Amino Transf (AST/SGOT) 20 U/L (15-37) Alanine Aminotransferase (ALT/SGPT) 20 U/L (14-59) Alkaline Phosphatase 86 U/L (46-116) Total Protein 7.0 g/dL (6.4-8.2) Albumin 3.4 g/dL (3.4-5.0) Albumin/Globulin Ratio 0.9 (1.0-1.7) Lipase 43 U/L (73-393) Assessment/Plan Assessment/Plan LLQ pain- with diarrhea, most likely ischeimc colitis. Infectious colitis and/or diverticulitis possible as well. Plan medical therapy with antibiotics/gut rest/serial labs consider interval Ct scan if clinical course doesn't improve Full note dictated WILL ROSAS MD May 03, 2020 13:45
[2020-05-03] MEDS: ENOXAPARIN 40 MG/0.4 ML SYRINGE. SQ SCH (13:59)
[2020-05-03 15:49] VITALS: BP 139/63
[2020-05-03] MEDS ORDERED: HYDROcodone/APAP 7.5/325MG 1 TAB TABLET PO PRN (17:30)
--- NOTE | 2020-05-03 18:19 | CONS ---
DATE OF CONSULTATION: 05/03/2020 REASON FOR CONSULTATION: Diffuse abdominal pain, diarrhea. HISTORY OF PRESENT ILLNESS: An 89-year-old female with past medical history, which is significant for colon cancer, diverticulitis, arthritis, dementia is admitted to [facility] with acute onset of diarrhea with left lower quadrant abdominal pain. The diarrhea has since resolved. The pain persists. She states she is not passing any flatus at this time, has not had any fevers or chills, not passed any blood. With continued issues and pain, she was then brought to the hospital for further evaluation and care. PAST SURGICAL HISTORY: Status post cholecystectomy, hysterectomy, tonsillectomy, partial colectomy. PAST MEDICAL HISTORY: Anemia, arthritis, colon cancer, diverticulitis, dementia. ALLERGIES: PENICILLIN, MEPERIDINE, AND MORPHINE. MEDICATIONS: Presently include levofloxacin, metronidazole, Lovenox, albuterol, clonidine. SOCIAL HISTORY: She is retired. Does not drink or smoke. FAMILY HISTORY: Noncontributory. REVIEW OF SYSTEMS: Per records. PHYSICAL EXAMINATION: GENERAL: Reveals a thin partially edentulous female. VITAL SIGNS: Temperature is 98.3, pulse 62, respiratory rate 16, blood pressure is 162/52. LUNGS: Clear. CARDIOVASCULAR: Reveals an S1, S2 without S3, S4 or appreciable murmur. ABDOMEN: Reveals hypoactive bowel sounds with mild diffuse right and left lower quadrant tenderness to deep palpation without appreciable hepatosplenomegaly or peritoneal signs. EXTREMITIES: No cyanosis, clubbing or edema. LABORATORY STUDIES: Hemoglobin 11.9, hematocrit 36.4, white count is 9.7, platelet count is 278,000. Sodium 145, potassium 3.7, chloride 109, bicarbonate is 20, BUN 36, creatinine 1.1, glucose is 121. Lactic acid 1.6, calcium is 9.2, total bilirubin 0.3, AST of 20, ALT of 20, alkaline phosphatase of 86, total protein 7.0, albumin 3.4, lipase is 43. CT scan of the abdomen and pelvis reveals sigmoid colon thickening consistent with either acute colitis or diverticulitis, some bladder wall thickening. No free air or obstruction is encountered. Urinalysis, specific gravity 1.020, pH 5.0 with few bacteria. IMPRESSION: Left lower quadrant abdominal pain and diarrhea, most likely secondary to either ischemic colitis and/or recurrent diverticulitis. RECOMMENDATIONS: We will recommend medical therapy in view of the patient's age, antibiotics, gut rest, fluids, analgesics, antiemetics. Interval CAT scan would be suggested. If the patient's clinical course does not continue to improve, to look for abscess, perforation, gangrene, patient's increased risk for any interventions either endoscopically or surgically with her age and comorbidities. WILL ROSAS MD DR: BARNEY/frances JOB#: [id number] / [id number] BHANU Lema MD Records, Medical
[2020-05-03 19:38] VITALS: BP 143/51
[2020-05-03] MEDS: ATORVASTATIN CALCIUM 10 MG TABLET. PO SCH (20:35)
[2020-05-03] MEDS: TOPIRAMATE 100 MG TABLET. PO SCH (20:35)
[2020-05-03] MEDS ORDERED: ALBUTEROL SULFATE 2.5 MG/3 ML NEBU. NEB PRN (20:45)
[2020-05-03 22:35] VITALS: BP 114/53
[2020-05-04] MEDS: ZOLPIDEM 5 MG TABLET. PO PRN ×2 (00:52→20:59)
[2020-05-04] MEDS: IV NORMAL SALINE 1000ML BAG 1,000 ML IV SCH ×2 (00:53→14:00)
--- NOTE | 2020-05-04 02:47 | NUR ---
0300 vitals were skipped. patient would like to sleep.
[2020-05-04 06:15] LABS: BASO % 0 % (0-3); EOS # 0.1 x10^3/uL (0.0-0.7); EOS % 1 % (0-3); HEMATOCRIT 34.7 % (36.0-47.0); LYMPH # 1.9 x10^3/uL (1.0-4.8); LYMPH % 19 % (24-48); MEAN CORPUSCULAR HEMOGLOBIN 29 pg (25-35); MEAN CORPUSCULAR HGB CONC 32 g/dL (31-37); MEAN CORPUSCULAR VOLUME 91 fL (79-100); MONO # 0.9 x10^3/uL (0.0-1.1); MONO % 9 % (0-9); NEUT # 7.1 x10^3/uL (1.8-7.7); NEUT % 71 % (31-73); PLATELET COUNT 256 x10^3/uL (140-400); RED BLOOD COUNT 3.83 x10^6/uL (3.50-5.40); RED CELL DISTRIBUTION WIDTH 15.3 % (11.5-14.5); WHITE BLOOD COUNT 9.9 x10^3/uL (4.0-11.0)
[2020-05-04 06:32] LABS: ALBUMIN 2.9 g/dL (3.4-5.0); ALBUMIN/GLOBULIN RATIO 0.8 (1.0-1.7); CALCIUM 8.5 mg/dL (8.5-10.1); CREATININE 1.1 mg/dL (0.6-1.0); POTASSIUM 3.5 mmol/L (3.5-5.1); TOTAL BILIRUBIN 0.3 mg/dL (0.2-1.0); TOTAL PROTEIN 6.5 g/dL (6.4-8.2)
[2020-05-04] MEDS: LEVOTHYROXINE 100 MCG TABLET PO SCH (06:33)
[2020-05-04 07:00] VITALS: BP 151/65
[2020-05-04] MEDS: FERROUS SULFATE 325 MG TABLET. PO SCH (08:00)
[2020-05-04] MEDS: ASPIRIN 325 MG TABLET PO SCH (08:00)
[2020-05-04] MEDS: PANTOPRAZOLE IV PUSH 40 MG VIAL. IVP SCH (08:24)
[2020-05-04] MEDS: KETOROLAC 15 MG/ML VIAL. IVP PRN ×2 (08:24→20:59)
[2020-05-04] MEDS: ONDANSETRON PF 4 MG/2 ML VIAL. IV PRN (08:25)
[2020-05-04] MEDS: FLUoxetine HCL 20 MG CAPSULE PO SCH (09:00)
[2020-05-04] MEDS: FOLIC ACID 1 MG TABLET. PO SCH (09:00)
[2020-05-04] MEDS: TOPIRAMATE 100 MG TABLET. PO SCH ×2 (09:00→21:00)
--- NOTE | 2020-05-04 09:33 | NUR ---
SW following. Discussed with RN, pt from home with , room air, NPO. PT/OT ordered. Pt has had [facility] home health in the past. SW will continue to follow.
--- NOTE | 2020-05-04 10:47 | PDOC ---
Date of Service: DATE: 05/04/20 TIME: 10:38 Subjective: Subjective: Thinks abdominal pain is worse. Objective: Objective: On IV Levaquin, Flagyl, and PPI. Reviewed chart - saw here in 2019 for SBO; CT at that time showed SBO w/ transition point in LLQ and subtotal colectomy w/ suspected ileosigmoid anastomosis. Vital Signs: Vital Signs Date Time Temp Pulse Resp B/P (MAP) Pulse Ox O2 Delivery O2 Flow Rate FiO2 05/04/20 07:00 97.7 79 16 151/65 (93) 97 Room Air 97.7 Labs: Laboratory Tests Test 05/04/20 05:45 White Blood Count 9.9 x10^3/uL Red Blood Count 3.83 x10^6/uL Hemoglobin 11.0 g/dL Hematocrit 34.7 % Mean Corpuscular Volume 91 fL Mean Corpuscular Hemoglobin 29 pg Mean Corpuscular Hemoglobin Concent 32 g/dL Red Cell Distribution Width 15.3 % Platelet Count 256 x10^3/uL Neutrophils (%) (Auto) 71 % Lymphocytes (%) (Auto) 19 % Monocytes (%) (Auto) 9 % Eosinophils (%) (Auto) 1 % Basophils (%) (Auto) 0 % Neutrophils # (Auto) 7.1 x10^3/uL Lymphocytes # (Auto) 1.9 x10^3/uL Monocytes # (Auto) 0.9 x10^3/uL Eosinophils # (Auto) 0.1 x10^3/uL Basophils # (Auto) 0.0 x10^3/uL Sodium Level 147 mmol/L Potassium Level 3.5 mmol/L Chloride Level 113 mmol/L Carbon Dioxide Level 19 mmol/L Anion Gap 15 Blood Urea Nitrogen 30 mg/dL Creatinine 1.1 mg/dL Estimated GFR (Cockcroft-Gault) 47.0 BUN/Creatinine Ratio 27 Glucose Level 91 mg/dL Calcium Level 8.5 mg/dL Total Bilirubin 0.3 mg/dL Aspartate Amino Transf (AST/SGOT) 22 U/L Alanine Aminotransferase (ALT/SGPT) 16 U/L Alkaline Phosphatase 72 U/L Total Protein 6.5 g/dL Albumin 2.9 g/dL Albumin/Globulin Ratio 0.8 Imaging: CT A/P IMPRESSION: 1. Colitis or diverticulitis involving the sigmoid colon without peridiverticular abscess or pneumoperitoneum. There is mesenteric edema with presacral edema. 2. Bladder wall thickening with pericystic inflammatory changes as may be seen with infectious or inflammatory cystitis. Findings could be reactive to adjacent inflammation. PE: GEN: NAD LUNGS: CTAB HEART: RRR ABD: quiet, ?somewhat firm, LLQ discomfort NEURO/PSYCH: A & O 3 A/P: LLQ pain - worse today Normocytic anemia (past notes indicate h/o TONE), CKD Abnormal CT - sigmoid colitis or diverticulitis, bladder wall thickening H/o colon cancer/resection - suspected ileosigmoid anastomosis per past imaging H/o SBO vs ileus -- Keep NPO and continue antibiotics, consider repeating CT. Justicifation of Admission Dx: Justifications for Admission: Justification of Admission Dx: Yes BAKARI SIMENTAL May 04, 2020 10:47
[2020-05-04 11:00] VITALS: BP 131/61
--- NOTE | 2020-05-04 11:53 | PDOC2 ---
CONSULT Date of Consult Date of Consult DATE: 05/04/20 TIME: 11:49 Reason for Consult Reason for Consult: SHOAIB, HIGH NA Referring Physician Referring Physician: CLARE Identification/Chief Complaint Chief Complaint ABD PAIN Source Source: Chart review History of Present Illness Reason for Visit: THIS IS AN 89 YR OLD WITH ABD PAIN AND DX WITH DIVERTICULITIS. RENAL CONSULT DUE TO NA OF 147 AND CR OF 1.1. NO KNOWN CKD REPORTED. APPETITE IS POOR AND SHE IS NPO AND ON ANTIBIOTICS AT THIS TIME. NO OTHER HX EXCEPT SOME INCONTINENCE. Past Medical History Cardiovascular: Hyperlipidemia Pulmonary: No pertinent hx CENTRAL NERVOUS SYSTEM: Migraine GI: Constipation Heme/Onc: Anemia NOS, Cancer Hepatobiliary: No pertinent hx Psych: No pertinent hx Rheumatologic: Rheumatoid arthritis Infectious disease: No pertinent hx Renal/: No pertinent hx Endocrine: Osteopenia Past Surgical History Past Surgical History: Appendectomy, Cholecystectomy, Cataract Removal, Tonsillectomy, Hysterectomy, Colon Resection Family History Family History: Hypertension, Family History Unknown Social History <1 pack per day ALCOHOL: none Drugs: None Current Problem List Problem List Problems Medical Problems: (1) Abdominal pain Status: Acute (2) Diverticulitis Status: Acute Current Medications Current Medications Current Medications Sodium Chloride 1,000 ml @ 1,000 mls/hr Q1H IV Last administered on 05/03/20at 09:57; Start 05/03/20 at 09:32; Stop 05/03/20 at 10:31; Status DC Ondansetron HCl (Zofran) 4 mg 1X ONCE IVP Last administered on 05/03/20at 09:57; Start 05/03/20 at 09:45; Stop 05/03/20 at 09:46; Status DC Dicyclomine HCl (Bentyl) 10 mg 1X ONCE IM Last administered on 05/03/20at 09:58; Start 05/03/20 at 09:45; Stop 05/03/20 at 09:46; Status DC Iohexol (Omnipaque 300 Mg/ml) 60 ml 1X ONCE IV Last administered on 05/03/20at 10:49; Start 05/03/20 at 10:45; Stop 05/03/20 at 10:46; Status DC Levofloxacin/ Dextrose 150 ml @ 100 mls/hr 1X ONCE IV Last administered on 05/03/20at 12:59; Start 05/03/20 at 11:30; Stop 05/03/20 at 12:59; Status DC Metronidazole 100 ml @ 100 mls/hr 1X ONCE IV Last administered on 05/03/20at 11:56; Start 05/03/20 at 11:30; Stop 05/03/20 at 12:29; Status DC Ondansetron HCl (Zofran) 4 mg PRN Q8HRS PRN IV NAUSEA/VOMITING; Start 05/03/20 at 11:30; Stop 05/03/20 at 13:38; Status DC Fentanyl Citrate (Fentanyl 2ml Vial) 12.5 mcg 1X ONCE IVP Last administered on 05/03/20at 11:55; Start 05/03/20 at 11:30; Stop 05/03/20 at 11:43; Status DC Sodium Chloride 1,000 ml @ 80 mls/hr [id number] IV Last administered on 05/04/20at 00:53; Start 05/03/20 at 13:00 Sodium Chloride (Normal Saline Flush) 3 ml QSHIFT PRN IV AFTER MEDS AND BLOOD DRAWS; Start 05/03/20 at 13:15 Sodium Chloride 1,000 ml @ 80 mls/hr [id number] IV ; Start 05/03/20 at 13:07; Status UNV Ondansetron HCl (Zofran) 4 mg PRN Q4HRS PRN IV NAUSEA/VOMITING Last administered on 05/04/20at 08:25; Start 05/03/20 at 13:15 Acetaminophen (Tylenol) 650 mg PRN Q4HRS PRN PO TEMP OVER 100.4F OR MILD PAIN; Start 05/03/20 at 13:15 Clonidine HCl (Catapres) 0.1 mg PRN Q6HRS PRN PO SBP>160 OR DBP>90; Start 05/03/20 at 13:15 Docusate Sodium (Colace) 100 mg PRN BID PRN PO HARD STOOLS; Start 05/03/20 at 13 :15 Albuterol/ Ipratropium (Duoneb) 3 ml Q4HRS NEB Last administered on 05/03/20at 20:21; Start 05/03/20 at 13:15; Stop 05/03/20 at 20:30; Status DC Guaifenesin (Robitussin) 200 mg PRN Q4HRS PRN PO COUGH; Start 05/03/20 at 13:15 Enoxaparin Sodium (Lovenox 40mg Syringe) 40 mg Q24H SQ Last administered on 05/03/20at 13:59; Start 05/03/20 at 14:00 Levofloxacin/ Dextrose 50 ml @ 50 mls/hr Q24H IV ; Start 05/04/20 at 13:00 Metronidazole 100 ml @ 100 mls/hr Q12HR IV Last administered on 05/04/20at 08:24; Start 05/03/20 at 21:00 Aspirin (Jan Aspirin) 325 mg DAILY08 PO ; Start 05/04/20 at 08:00 Ferrous Sulfate (Feosol) 325 mg DAILY08 PO ; Start 05/04/20 at 08:00 Folic Acid (Folic Acid) 1 mg DAILY PO ; Start 05/04/20 at 09:00 Acetaminophen/ Hydrocodone Bitart (Lortab 7.5/325) 1 tab PRN Q6HRS PRN PO MODERATE - SEVERE PAIN Last administered on 05/03/20at 20:35; Start 05/03/20 at 17:30 Levothyroxine Sodium (Synthroid) 100 mcg DAILY07 PO ; Start 05/04/20 at 07:00 Topiramate (Topamax) 100 mg BID PO Last administered on 05/03/20at 20:35; Start 05/03/20 at 21:00 Fluoxetine HCl (PROzac) 20 mg DAILY PO ; Start 05/04/20 at 09:00 Atorvastatin Calcium (Lipitor) 10 mg QHS PO Last administered on 05/03/20at 20:35; Start 05/03/20 at 21:00 Pantoprazole Sodium (PROTONIX VIAL for IV PUSH) 40 mg DAILYAC IVP Last administered on 05/04/20at 08:24; Start 05/04/20 at 07:30 Albuterol Sulfate (Ventolin Neb Soln) 2.5 mg PRN Q4HRS PRN NEB SHORTNESS OF BREATH; Start 05/03/20 at 20:45 Zolpidem Tartrate (Ambien) 5 mg PRN QHS PRN PO INSOMNIA Last administered on 05/04/20at 00:52; Start 05/04/20 at 00:45 Ketorolac Tromethamine (Toradol 15mg Vial) 15 mg PRN Q8HRS PRN IVP PAIN Last administered on 05/04/20at 08:24; Start 05/04/20 at 00:45; Stop 05/09/20 at 00:44 Active Scripts Active Reported Ferrous Sulfate 325 Mg Tablet 325 Mg PO DAILY Tizanidine Hcl 4 Mg Tablet 4 Mg PO PRN Q8MIN PRN Lovastatin 40 Mg Tablet 40 Mg PO DAILY Levothyroxine Sodium 100 Mcg Tablet 100 Mcg PO DAILY Aspirin 325 Mg Tablet 325 Mg PO DAILY Hydrocodone-Apap 7.5-325 (Hydrocodone Bit/Acetaminophen) 1 Each Tablet 1 Tab PO PRN Q6HRS PRN Topiramate 100 Mg Tablet 1 Tab PO BID Fluoxetine Hcl 20 Mg Tablet 20 Mg PO DAILY Omeprazole 20 Mg Tablet.dr 20 Mg PO DAILY Folic Acid 1 Mg Tablet 1 Mg PO DAILY Allergies Allergies: Coded Allergies: Penicillins (Verified Allergy, Intermediate, Hives, 08/16/16) meperidine (Verified Allergy, Intermediate, HAS TOLERATED FENTANYL, 10/03/19) morphine (Verified Adverse Reaction, Intermediate, PT STATED MORPHINE ALLERGIE, BUT STATES IT JUST "UPSETS" HER, 10/02/19) ROS Review of System CONFUSED Physical Exam General: Alert, Cooperative HEENT: Atraumatic, PERRLA Lungs: Clear to auscultation Heart: Regular rate Abdomen: Normal bowel sounds, Other (LLQ PAIN) Extremities: No clubbing, No cyanosis Skin: No breakdown Neuro: Other (CONFUSED) MUSCULOSKELETAL: No joint tenderness, No deformity Vitals VITALS Vital Signs Date Time Temp Pulse Resp B/P (MAP) Pulse Ox O2 Delivery O2 Flow Rate FiO2 05/04/20 11:00 98.6 100 16 131/61 (84) 96 Room Air 98.6 Labs Labs Laboratory Tests Test 05/03/20 09:10 05/03/20 09:45 05/04/20 05:45 Urine Collection Type Void Urine Color Straw Urine Clarity Clear Urine pH 5.0 (<5.0-8.0) Urine Specific [place] 1.020 (1.000-1.030) Urine Protein 30 mg/dL (NEG-TRACE) Urine Glucose (UA) Negative mg/dL (NEG) Urine Ketones (Stick) Trace mg/dL (NEG) Urine Blood Negative (NEG) Urine Nitrite Negative (NEG) Urine Bilirubin Small (NEG) Urine Urobilinogen Dipstick 0.2 mg/dL (0.2 mg/dL) Urine Leukocyte Esterase Trace (NEG) Urine RBC 0 /HPF (0-2) Urine WBC 1-4 /HPF (0-4) Urine Amorphous Sediment Present /HPF Urine Bacteria Few /HPF (0-FEW) Urine Hyaline Casts Moderate /HPF Urine Granular Casts Few /HPF Urine Mucus Mod /LPF White Blood Count 9.7 x10^3/uL (4.0-11.0) 9.9 x10^3/uL (4.0-11.0) Red Blood Count 4.09 x10^6/uL (3.50-5.40) 3.83 x10^6/uL (3.50-5.40) Hemoglobin 11.9 g/dL (12.0-15.5) 11.0 g/dL (12.0-15.5) Hematocrit 36.4 % (36.0-47.0) 34.7 % (36.0-47.0) Mean Corpuscular Volume 89 fL (79-100) 91 fL (79-100) Mean Corpuscular Hemoglobin 29 pg (25-35) 29 pg (25-35) Mean Corpuscular Hemoglobin Concent 33 g/dL (31-37) 32 g/dL (31-37) Red Cell Distribution Width 15.3 % (11.5-14.5) 15.3 % (11.5-14.5) Platelet Count 278 x10^3/uL (140-400) 256 x10^3/uL (140-400) Neutrophils (%) (Auto) 75 % (31-73) 71 % (31-73) Lymphocytes (%) (Auto) 17 % (24-48) 19 % (24-48) Monocytes (%) (Auto) 7 % (0-9) 9 % (0-9) Eosinophils (%) (Auto) 0 % (0-3) 1 % (0-3) Basophils (%) (Auto) 1 % (0-3) 0 % (0-3) Neutrophils # (Auto) 7.3 x10^3/uL (1.8-7.7) 7.1 x10^3/uL (1.8-7.7) Lymphocytes # (Auto) 1.7 x10^3/uL (1.0-4.8) 1.9 x10^3/uL (1.0-4.8) Monocytes # (Auto) 0.6 x10^3/uL (0.0-1.1) 0.9 x10^3/uL (0.0-1.1) Eosinophils # (Auto) 0.0 x10^3/uL (0.0-0.7) 0.1 x10^3/uL (0.0-0.7) Basophils # (Auto) 0.1 x10^3/uL (0.0-0.2) 0.0 x10^3/uL (0.0-0.2) Sodium Level 145 mmol/L (136-145) 147 mmol/L (136-145) Potassium Level 3.7 mmol/L (3.5-5.1) 3.5 mmol/L (3.5-5.1) Chloride Level 109 mmol/L (98-107) 113 mmol/L (98-107) Carbon Dioxide Level 20 mmol/L (21-32) 19 mmol/L (21-32) Anion Gap 16 (6-14) 15 (6-14) Blood Urea Nitrogen 36 mg/dL (7-20) 30 mg/dL (7-20) Creatinine 1.1 mg/dL (0.6-1.0) 1.1 mg/dL (0.6-1.0) Estimated GFR (Cockcroft-Gault) 47.0 47.0 BUN/Creatinine Ratio 33 (6-20) 27 (6-20) Glucose Level 121 mg/dL (70-99) 91 mg/dL (70-99) Lactic Acid Level 1.6 mmol/L (0.4-2.0) Calcium Level 9.2 mg/dL (8.5-10.1) 8.5 mg/dL (8.5-10.1) Total Bilirubin 0.3 mg/dL (0.2-1.0) 0.3 mg/dL (0.2-1.0) Aspartate Amino Transf (AST/SGOT) 20 U/L (15-37) 22 U/L (15-37) Alanine Aminotransferase (ALT/SGPT) 20 U/L (14-59) 16 U/L (14-59) Alkaline Phosphatase 86 U/L (46-116) 72 U/L (46-116) Total Protein 7.0 g/dL (6.4-8.2) 6.5 g/dL (6.4-8.2) Albumin 3.4 g/dL (3.4-5.0) 2.9 g/dL (3.4-5.0) Albumin/Globulin Ratio 0.9 (1.0-1.7) 0.8 (1.0-1.7) Lipase 43 U/L (73-393) Laboratory Tests Test 05/04/20 05:45 White Blood Count 9.9 x10^3/uL (4.0-11.0) Red Blood Count 3.83 x10^6/uL (3.50-5.40) Hemoglobin 11.0 g/dL (12.0-15.5) Hematocrit 34.7 % (36.0-47.0) Mean Corpuscular Volume 91 fL (79-100) Mean Corpuscular Hemoglobin 29 pg (25-35) Mean Corpuscular Hemoglobin Concent 32 g/dL (31-37) Red Cell Distribution Width 15.3 % (11.5-14.5) Platelet Count 256 x10^3/uL (140-400) Neutrophils (%) (Auto) 71 % (31-73) Lymphocytes (%) (Auto) 19 % (24-48) Monocytes (%) (Auto) 9 % (0-9) Eosinophils (%) (Auto) 1 % (0-3) Basophils (%) (Auto) 0 % (0-3) Neutrophils # (Auto) 7.1 x10^3/uL (1.8-7.7) Lymphocytes # (Auto) 1.9 x10^3/uL (1.0-4.8) Monocytes # (Auto) 0.9 x10^3/uL (0.0-1.1) Eosinophils # (Auto) 0.1 x10^3/uL (0.0-0.7) Basophils # (Auto) 0.0 x10^3/uL (0.0-0.2) Sodium Level 147 mmol/L (136-145) Potassium Level 3.5 mmol/L (3.5-5.1) Chloride Level 113 mmol/L (98-107) Carbon Dioxide Level 19 mmol/L (21-32) Anion Gap 15 (6-14) Blood Urea Nitrogen 30 mg/dL (7-20) Creatinine 1.1 mg/dL (0.6-1.0) Estimated GFR (Cockcroft-Gault) 47.0 BUN/Creatinine Ratio 27 (6-20) Glucose Level 91 mg/dL (70-99) Calcium Level 8.5 mg/dL (8.5-10.1) Total Bilirubin 0.3 mg/dL (0.2-1.0) Aspartate Amino Transf (AST/SGOT) 22 U/L (15-37) Alanine Aminotransferase (ALT/SGPT) 16 U/L (14-59) Alkaline Phosphatase 72 U/L (46-116) Total Protein 6.5 g/dL (6.4-8.2) Albumin 2.9 g/dL (3.4-5.0) Albumin/Globulin Ratio 0.8 (1.0-1.7) Assessment/Plan Assessment/Plan IMP SBO VS DIVERTICULITIS DEHYDRATION HYPERNATREMIA MILD SHOAIB PLAN HYDRATION ANTIBIOTIC WILL FOLLOW HUMPHREY GR MD May 04, 2020 11:52
[2020-05-04] MEDS: ENOXAPARIN 40 MG/0.4 ML SYRINGE. SQ SCH (13:46)
--- NOTE | 2020-05-04 14:13 | PDOC ---
PROGRESS NOTES Date of Service: DATE: 05/04/20 TIME: 14:12 Chief Complaint Chief Complaint 1. ACUTE diverticulitis involving the sigmoid colon without peridiverticular abscess or pneumoperitoneum. There is mesenteric edema with presacral edema. 2. Bladder wall thickening with pericystic inflammatory changes as may be seen with infectious or inflammatory cystitis. 3. CKD STAGE 3 4. metabolic acidosis 5. 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 History of Present Illness History of Present Illness gi consult following, continue the iv antibiotics IV FLUID SUPPORT BOWEL REST Full code IV PAIN CONTROL dvt prophylaxis Vitals Vitals Vital Signs Date Time Temp Pulse Resp B/P (MAP) Pulse Ox O2 Delivery O2 Flow Rate FiO2 05/04/20 11:00 98.6 100 16 131/61 (84) 96 Room Air 98.6 Physical Exam General: Alert, Cooperative Heart: Regular rate Lungs: Clear, Other Abdomen: Normal bowel sounds, Other (LLQ PAIN) Extremities: No clubbing, No cyanosis Skin: No breakdown Labs LABS Laboratory Tests Test 05/04/20 05:45 White Blood Count 9.9 x10^3/uL (4.0-11.0) Red Blood Count 3.83 x10^6/uL (3.50-5.40) Hemoglobin 11.0 g/dL (12.0-15.5) Hematocrit 34.7 % (36.0-47.0) Mean Corpuscular Volume 91 fL (79-100) Mean Corpuscular Hemoglobin 29 pg (25-35) Mean Corpuscular Hemoglobin Concent 32 g/dL (31-37) Red Cell Distribution Width 15.3 % (11.5-14.5) Platelet Count 256 x10^3/uL (140-400) Neutrophils (%) (Auto) 71 % (31-73) Lymphocytes (%) (Auto) 19 % (24-48) Monocytes (%) (Auto) 9 % (0-9) Eosinophils (%) (Auto) 1 % (0-3) Basophils (%) (Auto) 0 % (0-3) Neutrophils # (Auto) 7.1 x10^3/uL (1.8-7.7) Lymphocytes # (Auto) 1.9 x10^3/uL (1.0-4.8) Monocytes # (Auto) 0.9 x10^3/uL (0.0-1.1) Eosinophils # (Auto) 0.1 x10^3/uL (0.0-0.7) Basophils # (Auto) 0.0 x10^3/uL (0.0-0.2) Sodium Level 147 mmol/L (136-145) Potassium Level 3.5 mmol/L (3.5-5.1) Chloride Level 113 mmol/L (98-107) Carbon Dioxide Level 19 mmol/L (21-32) Anion Gap 15 (6-14) Blood Urea Nitrogen 30 mg/dL (7-20) Creatinine 1.1 mg/dL (0.6-1.0) Estimated GFR (Cockcroft-Gault) 47.0 BUN/Creatinine Ratio 27 (6-20) Glucose Level 91 mg/dL (70-99) Calcium Level 8.5 mg/dL (8.5-10.1) Total Bilirubin 0.3 mg/dL (0.2-1.0) Aspartate Amino Transf (AST/SGOT) 22 U/L (15-37) Alanine Aminotransferase (ALT/SGPT) 16 U/L (14-59) Alkaline Phosphatase 72 U/L (46-116) Total Protein 6.5 g/dL (6.4-8.2) Albumin 2.9 g/dL (3.4-5.0) Albumin/Globulin Ratio 0.8 (1.0-1.7) Assessment and Plan Assessmemt and Plan Problems Medical Problems: (1) Abdominal pain Status: Acute (2) Diverticulitis Status: Acute Comment Review of Relevant I have reviewed the following items ruby (where applicable) has been applied. Labs Laboratory Tests Test 05/03/20 09:10 05/03/20 09:45 05/04/20 05:45 Urine Collection Type Void Urine Color Straw Urine Clarity Clear Urine pH 5.0 (<5.0-8.0) Urine Specific [place] 1.020 (1.000-1.030) Urine Protein 30 mg/dL (NEG-TRACE) Urine Glucose (UA) Negative mg/dL (NEG) Urine Ketones (Stick) Trace mg/dL (NEG) Urine Blood Negative (NEG) Urine Nitrite Negative (NEG) Urine Bilirubin Small (NEG) Urine Urobilinogen Dipstick 0.2 mg/dL (0.2 mg/dL) Urine Leukocyte Esterase Trace (NEG) Urine RBC 0 /HPF (0-2) Urine WBC 1-4 /HPF (0-4) Urine Amorphous Sediment Present /HPF Urine Bacteria Few /HPF (0-FEW) Urine Hyaline Casts Moderate /HPF Urine Granular Casts Few /HPF Urine Mucus Mod /LPF White Blood Count 9.7 x10^3/uL (4.0-11.0) 9.9 x10^3/uL (4.0-11.0) Red Blood Count 4.09 x10^6/uL (3.50-5.40) 3.83 x10^6/uL (3.50-5.40) Hemoglobin 11.9 g/dL (12.0-15.5) 11.0 g/dL (12.0-15.5) Hematocrit 36.4 % (36.0-47.0) 34.7 % (36.0-47.0) Mean Corpuscular Volume 89 fL (79-100) 91 fL (79-100) Mean Corpuscular Hemoglobin 29 pg (25-35) 29 pg (25-35) Mean Corpuscular Hemoglobin Concent 33 g/dL (31-37) 32 g/dL (31-37) Red Cell Distribution Width 15.3 % (11.5-14.5) 15.3 % (11.5-14.5) Platelet Count 278 x10^3/uL (140-400) 256 x10^3/uL (140-400) Neutrophils (%) (Auto) 75 % (31-73) 71 % (31-73) Lymphocytes (%) (Auto) 17 % (24-48) 19 % (24-48) Monocytes (%) (Auto) 7 % (0-9) 9 % (0-9) Eosinophils (%) (Auto) 0 % (0-3) 1 % (0-3) Basophils (%) (Auto) 1 % (0-3) 0 % (0-3) Neutrophils # (Auto) 7.3 x10^3/uL (1.8-7.7) 7.1 x10^3/uL (1.8-7.7) Lymphocytes # (Auto) 1.7 x10^3/uL (1.0-4.8) 1.9 x10^3/uL (1.0-4.8) Monocytes # (Auto) 0.6 x10^3/uL (0.0-1.1) 0.9 x10^3/uL (0.0-1.1) Eosinophils # (Auto) 0.0 x10^3/uL (0.0-0.7) 0.1 x10^3/uL (0.0-0.7) Basophils # (Auto) 0.1 x10^3/uL (0.0-0.2) 0.0 x10^3/uL (0.0-0.2) Sodium Level 145 mmol/L (136-145) 147 mmol/L (136-145) Potassium Level 3.7 mmol/L (3.5-5.1) 3.5 mmol/L (3.5-5.1) Chloride Level 109 mmol/L (98-107) 113 mmol/L (98-107) Carbon Dioxide Level 20 mmol/L (21-32) 19 mmol/L (21-32) Anion Gap 16 (6-14) 15 (6-14) Blood Urea Nitrogen 36 mg/dL (7-20) 30 mg/dL (7-20) Creatinine 1.1 mg/dL (0.6-1.0) 1.1 mg/dL (0.6-1.0) Estimated GFR (Cockcroft-Gault) 47.0 47.0 BUN/Creatinine Ratio 33 (6-20) 27 (6-20) Glucose Level 121 mg/dL (70-99) 91 mg/dL (70-99) Lactic Acid Level 1.6 mmol/L (0.4-2.0) Calcium Level 9.2 mg/dL (8.5-10.1) 8.5 mg/dL (8.5-10.1) Total Bilirubin 0.3 mg/dL (0.2-1.0) 0.3 mg/dL (0.2-1.0) Aspartate Amino Transf (AST/SGOT) 20 U/L (15-37) 22 U/L (15-37) Alanine Aminotransferase (ALT/SGPT) 20 U/L (14-59) 16 U/L (14-59) Alkaline Phosphatase 86 U/L (46-116) 72 U/L (46-116) Total Protein 7.0 g/dL (6.4-8.2) 6.5 g/dL (6.4-8.2) Albumin 3.4 g/dL (3.4-5.0) 2.9 g/dL (3.4-5.0) Albumin/Globulin Ratio 0.9 (1.0-1.7) 0.8 (1.0-1.7) Lipase 43 U/L (73-393) Laboratory Tests Test 05/04/20 05:45 White Blood Count 9.9 x10^3/uL (4.0-11.0) Red Blood Count 3.83 x10^6/uL (3.50-5.40) Hemoglobin 11.0 g/dL (12.0-15.5) Hematocrit 34.7 % (36.0-47.0) Mean Corpuscular Volume 91 fL (79-100) Mean Corpuscular Hemoglobin 29 pg (25-35) Mean Corpuscular Hemoglobin Concent 32 g/dL (31-37) Red Cell Distribution Width 15.3 % (11.5-14.5) Platelet Count 256 x10^3/uL (140-400) Neutrophils (%) (Auto) 71 % (31-73) Lymphocytes (%) (Auto) 19 % (24-48) Monocytes (%) (Auto) 9 % (0-9) Eosinophils (%) (Auto) 1 % (0-3) Basophils (%) (Auto) 0 % (0-3) Neutrophils # (Auto) 7.1 x10^3/uL (1.8-7.7) Lymphocytes # (Auto) 1.9 x10^3/uL (1.0-4.8) Monocytes # (Auto) 0.9 x10^3/uL (0.0-1.1) Eosinophils # (Auto) 0.1 x10^3/uL (0.0-0.7) Basophils # (Auto) 0.0 x10^3/uL (0.0-0.2) Sodium Level 147 mmol/L (136-145) Potassium Level 3.5 mmol/L (3.5-5.1) Chloride Level 113 mmol/L (98-107) Carbon Dioxide Level 19 mmol/L (21-32) Anion Gap 15 (6-14) Blood Urea Nitrogen 30 mg/dL (7-20) Creatinine 1.1 mg/dL (0.6-1.0) Estimated GFR (Cockcroft-Gault) 47.0 BUN/Creatinine Ratio 27 (6-20) Glucose Level 91 mg/dL (70-99) Calcium Level 8.5 mg/dL (8.5-10.1) Total Bilirubin 0.3 mg/dL (0.2-1.0) Aspartate Amino Transf (AST/SGOT) 22 U/L (15-37) Alanine Aminotransferase (ALT/SGPT) 16 U/L (14-59) Alkaline Phosphatase 72 U/L (46-116) Total Protein 6.5 g/dL (6.4-8.2) Albumin 2.9 g/dL (3.4-5.0) Albumin/Globulin Ratio 0.8 (1.0-1.7) Medications Current Medications Sodium Chloride 1,000 ml @ 1,000 mls/hr Q1H IV Last administered on 05/03/20at 09:57; Start 05/03/20 at 09:32; Stop 05/03/20 at 10:31; Status DC Ondansetron HCl (Zofran) 4 mg 1X ONCE IVP Last administered on 05/03/20at 09:57; Start 05/03/20 at 09:45; Stop 05/03/20 at 09:46; Status DC Dicyclomine HCl (Bentyl) 10 mg 1X ONCE IM Last administered on 05/03/20at 09:58; Start 05/03/20 at 09:45; Stop 05/03/20 at 09:46; Status DC Iohexol (Omnipaque 300 Mg/ml) 60 ml 1X ONCE IV Last administered on 05/03/20at 10:49; Start 05/03/20 at 10:45; Stop 05/03/20 at 10:46; Status DC Levofloxacin/ Dextrose 150 ml @ 100 mls/hr 1X ONCE IV Last administered on 05/03/20at 12:59; Start 05/03/20 at 11:30; Stop 05/03/20 at 12:59; Status DC Metronidazole 100 ml @ 100 mls/hr 1X ONCE IV Last administered on 05/03/20at 11:56; Start 05/03/20 at 11:30; Stop 05/03/20 at 12:29; Status DC Ondansetron HCl (Zofran) 4 mg PRN Q8HRS PRN IV NAUSEA/VOMITING; Start 05/03/20 at 11:30; Stop 05/03/20 at 13:38; Status DC Fentanyl Citrate (Fentanyl 2ml Vial) 12.5 mcg 1X ONCE IVP Last administered on 05/03/20at 11:55; Start 05/03/20 at 11:30; Stop 05/03/20 at 11:43; Status DC Sodium Chloride 1,000 ml @ 80 mls/hr [id number] IV Last administered on 05/04/20at 00:53; Start 05/03/20 at 13:00 Sodium Chloride (Normal Saline Flush) 3 ml QSHIFT PRN IV AFTER MEDS AND BLOOD DRAWS; Start 05/03/20 at 13:15 Sodium Chloride 1,000 ml @ 80 mls/hr [id number] IV ; Start 05/03/20 at 13:07; Status UNV Ondansetron HCl (Zofran) 4 mg PRN Q4HRS PRN IV NAUSEA/VOMITING Last administered on 05/04/20at 08:25; Start 05/03/20 at 13:15 Acetaminophen (Tylenol) 650 mg PRN Q4HRS PRN PO TEMP OVER 100.4F OR MILD PAIN; Start 05/03/20 at 13:15 Clonidine HCl (Catapres) 0.1 mg PRN Q6HRS PRN PO SBP>160 OR DBP>90; Start 05/03/20 at 13:15 Docusate Sodium (Colace) 100 mg PRN BID PRN PO HARD STOOLS; Start 05/03/20 at 13:15 Albuterol/ Ipratropium (Duoneb) 3 ml Q4HRS NEB Last administered on 05/03/20at 20:21; Start 05/03/20 at 13:15; Stop 05/03/20 at 20:30; Status DC Guaifenesin (Robitussin) 200 mg PRN Q4HRS PRN PO COUGH; Start 05/03/20 at 13:15 Enoxaparin Sodium (Lovenox 40mg Syringe) 40 mg Q24H SQ Last administered on 05/04/20at 13:46; Start 05/03/20 at 14:00 Levofloxacin/ Dextrose 50 ml @ 50 mls/hr Q24H IV Last administered on 05/04/20at 13:46; Start 05/04/20 at 13:00 Metronidazole 100 ml @ 100 mls/hr Q12HR IV Last administered on 05/04/20at 08:24; Start 05/03/20 at 21:00 Aspirin (Jan Aspirin) 325 mg DAILY08 PO ; Start 05/04/20 at 08:00 Ferrous Sulfate (Feosol) 325 mg DAILY08 PO ; Start 05/04/20 at 08:00 Folic Acid (Folic Acid) 1 mg DAILY PO ; Start 05/04/20 at 09:00 Acetaminophen/ Hydrocodone Bitart (Lortab 7.5/325) 1 tab PRN Q6HRS PRN PO MODERATE - SEVERE PAIN Last administered on 05/03/20at 20:35; Start 05/03/20 at 17:30 Levothyroxine Sodium (Synthroid) 100 mcg DAILY07 PO ; Start 05/04/20 at 07:00 Topiramate (Topamax) 100 mg BID PO Last administered on 05/03/20at 20:35; Start 05/03/20 at 21:00 Fluoxetine HCl (PROzac) 20 mg DAILY PO ; Start 05/04/20 at 09:00 Atorvastatin Calcium (Lipitor) 10 mg QHS PO Last administered on 05/03/20at 20:35; Start 05/03/20 at 21:00 Pantoprazole Sodium (PROTONIX VIAL for IV PUSH) 40 mg DAILYAC IVP Last administered on 05/04/20at 08:24; Start 05/04/20 at 07:30 Albuterol Sulfate (Ventolin Neb Soln) 2.5 mg PRN Q4HRS PRN NEB SHORTNESS OF BREATH; Start 05/03/20 at 20:45 Zolpidem Tartrate (Ambien) 5 mg PRN QHS PRN PO INSOMNIA Last administered on 05/04/20at 00:52; Start 05/04/20 at 00:45 Ketorolac Tromethamine (Toradol 15mg Vial) 15 mg PRN Q8HRS PRN IVP PAIN Last administered on 05/04/20at 08:24; Start 05/04/20 at 00:45; Stop 05/09/20 at 00:44 Active Scripts Active Reported Ferrous Sulfate 325 Mg Tablet 325 Mg PO DAILY Tizanidine Hcl 4 Mg Tablet 4 Mg PO PRN Q8MIN PRN Lovastatin 40 Mg Tablet 40 Mg PO DAILY Levothyroxine Sodium 100 Mcg Tablet 100 Mcg PO DAILY Aspirin 325 Mg Tablet 325 Mg PO DAILY Hydrocodone-Apap 7.5-325 (Hydrocodone Bit/Acetaminophen) 1 Each Tablet 1 Tab PO PRN Q6HRS PRN Topiramate 100 Mg Tablet 1 Tab PO BID Fluoxetine Hcl 20 Mg Tablet 20 Mg PO DAILY Omeprazole 20 Mg Tablet.dr 20 Mg PO DAILY Folic Acid 1 Mg Tablet 1 Mg PO DAILY Vitals/I & O Vital Sign - Last 24 Hours 05/03/20 05/03/20 05/03/20 05/03/20 15:49 15:51 19:38 20:00 Temp 98.4 98.1 98.4 98.1 Pulse 74 70 Resp 20 18 B/P (MAP) 139/63 (88) 143/51 (81) Pulse Ox 93 93 95 O2 Delivery Room Air Room Air Room Air Room Air 05/03/20 05/03/20 05/03/20 05/03/20 20:22 20:35 21:35 22:35 Temp 98.9 98.9 Pulse 83 Resp 18 B/P (MAP) 114/53 (73) Pulse Ox 97 94 O2 Delivery Room Air Room Air Room Air Room Air 05/04/20 05/04/20 05/04/20 07:00 08:00 11:00 Temp 97.7 98.6 97.7 98.6 Pulse 79 100 Resp 16 16 B/P (MAP) 151/65 (93) 131/61 (84) Pulse Ox 97 96 O2 Delivery Room Air Room Air Room Air Intake and Output 05/03/20 05/03/20 05/04/20 15:00 23:00 07:00 Intake Total 1000 ml 0 ml 0 ml Balance 1000 ml 0 ml 0 ml Justicifation of Admission Dx: Justifications for Admission: Justification of Admission Dx: Yes VIELKA CONTE MD May 04, 2020 14:13
--- NOTE | 2020-05-04 14:35 | PDOC2 ---
KELLEN UGALDE [employer] 05/04/20 1435: CONSULT Date of Consult Date of Consult DATE: 05/04/20 TIME: 14:08 Reason for Consult Reason for Consult: abd pain Referring Physician Referring Physician: Dr Tejeda Identification/Chief Complaint Chief Complaint abdominal pain Source Source: Chart review, Patient History of Present Illness Reason for Visit: Abdominal pain started trace evening, some loose stool then. Pain did not improve. Hx of colon cancer and subtotal colectomy(required 3 surgeries in total in late ) Continues to have lower abdominal pain, says she is being starved reports some loose stool today Past Medical History Cardiovascular: Hyperlipidemia Pulmonary: No pertinent hx CENTRAL NERVOUS SYSTEM: Migraine GI: Constipation Heme/Onc: Anemia NOS, Cancer Hepatobiliary: No pertinent hx Psych: No pertinent hx Rheumatologic: Rheumatoid arthritis Infectious disease: No pertinent hx Renal/: No pertinent hx Endocrine: Osteopenia Past Surgical History Past Surgical History: Appendectomy, Cholecystectomy, Cataract Removal, Tonsillectomy, Hysterectomy, Colon Resection Family History Family History: Hypertension, Family History Unknown Social History <1 pack per day ALCOHOL: none Drugs: None Current Problem List Problem List Problems Medical Problems: (1) Abdominal pain Status: Acute (2) Diverticulitis Status: Acute Current Medications Current Medications Current Medications Sodium Chloride 1,000 ml @ 1,000 mls/hr Q1H IV Last administered on 05/03/20at 09:57; Start 05/03/20 at 09:32; Stop 05/03/20 at 10:31; Status DC Ondansetron HCl (Zofran) 4 mg 1X ONCE IVP Last administered on 05/03/20at 09:57; Start 05/03/20 at 09:45; Stop 05/03/20 at 09:46; Status DC Dicyclomine HCl (Bentyl) 10 mg 1X ONCE IM Last administered on 05/03/20at 09:58; Start 05/03/20 at 09:45; Stop 05/03/20 at 09:46; Status DC Iohexol (Omnipaque 300 Mg/ml) 60 ml 1X ONCE IV Last administered on 05/03/20at 10:49; Start 05/03/20 at 10:45; Stop 05/03/20 at 10:46; Status DC Levofloxacin/ Dextrose 150 ml @ 100 mls/hr 1X ONCE IV Last administered on 05/03/20at 12:59; Start 05/03/20 at 11:30; Stop 05/03/20 at 12:59; Status DC Metronidazole 100 ml @ 100 mls/hr 1X ONCE IV Last administered on 05/03/20at 11:56; Start 05/03/20 at 11:30; Stop 05/03/20 at 12:29; Status DC Ondansetron HCl (Zofran) 4 mg PRN Q8HRS PRN IV NAUSEA/VOMITING; Start 05/03/20 at 11:30; Stop 05/03/20 at 13:38; Status DC Fentanyl Citrate (Fentanyl 2ml Vial) 12.5 mcg 1X ONCE IVP Last administered on 05/03/20at 11:55; Start 05/03/20 at 11:30; Stop 05/03/20 at 11:43; Status DC Sodium Chloride 1,000 ml @ 80 mls/hr [id number] IV Last administered on 05/04/20at 00:53; Start 05/03/20 at 13:00 Sodium Chloride (Normal Saline Flush) 3 ml QSHIFT PRN IV AFTER MEDS AND BLOOD DRAWS; Start 05/03/20 at 13:15 Sodium Chloride 1,000 ml @ 80 mls/hr [id number] IV ; Start 05/03/20 at 13:07; Status UNV Ondansetron HCl (Zofran) 4 mg PRN Q4HRS PRN IV NAUSEA/VOMITING Last administered on 05/04/20at 08:25; Start 05/03/20 at 13:15 Acetaminophen (Tylenol) 650 mg PRN Q4HRS PRN PO TEMP OVER 100.4F OR MILD PAIN; Start 05/03/20 at 13:15 Clonidine HCl (Catapres) 0.1 mg PRN Q6HRS PRN PO SBP>160 OR DBP>90; Start 05/03/20 at 13:15 Docusate Sodium (Colace) 100 mg PRN BID PRN PO HARD STOOLS; Start 05/03/20 at 13:15 Albuterol/ Ipratropium (Duoneb) 3 ml Q4HRS NEB Last administered on 05/03/20at 20:21; Start 05/03/20 at 13:15; Stop 05/03/20 at 20:30; Status DC Guaifenesin (Robitussin) 200 mg PRN Q4HRS PRN PO COUGH; Start 05/03/20 at 13:15 Enoxaparin Sodium (Lovenox 40mg Syringe) 40 mg Q24H SQ Last administered on 05/04/20at 13:46; Start 05/03/20 at 14:00 Levofloxacin/ Dextrose 50 ml @ 50 mls/hr Q24H IV Last administered on 05/04/20at 13:46; Start 05/04/20 at 13:00 Metronidazole 100 ml @ 100 mls/hr Q12HR IV Last administered on 05/04/20at 08:24; Start 05/03/20 at 21:00 Aspirin (Jan Aspirin) 325 mg DAILY08 PO ; Start 05/04/20 at 08:00 Ferrous Sulfate (Feosol) 325 mg DAILY08 PO ; Start 05/04/20 at 08:00 Folic Acid (Folic Acid) 1 mg DAILY PO ; Start 05/04/20 at 09:00 Acetaminophen/ Hydrocodone Bitart (Lortab 7.5/325) 1 tab PRN Q6HRS PRN PO MODERATE - SEVERE PAIN Last administered on 05/03/20at 20:35; Start 05/03/20 at 17:30 Levothyroxine Sodium (Synthroid) 100 mcg DAILY07 PO ; Start 05/04/20 at 07:00 Topiramate (Topamax) 100 mg BID PO Last administered on 05/03/20at 20:35; Start 05/03/20 at 21:00 Fluoxetine HCl (PROzac) 20 mg DAILY PO ; Start 05/04/20 at 09:00 Atorvastatin Calcium (Lipitor) 10 mg QHS PO Last administered on 05/03/20at 20:35; Start 05/03/20 at 21:00 Pantoprazole Sodium (PROTONIX VIAL for IV PUSH) 40 mg DAILYAC IVP Last administered on 05/04/20 08:24; Start 05/04/20 at 07:30 Albuterol Sulfate (Ventolin Neb Soln) 2.5 mg PRN Q4HRS PRN NEB SHORTNESS OF BREATH; Start 05/03/20 at 20:45 Zolpidem Tartrate (Ambien) 5 mg PRN QHS PRN PO INSOMNIA Last administered on 05/04/20at 00:52; Start 05/04/20 at 00:45 Ketorolac Tromethamine (Toradol 15mg Vial) 15 mg PRN Q8HRS PRN IVP PAIN Last administered on 05/04/20at 08:24; Start 05/04/20 at 00:45; Stop 05/09/20 at 00:44 Active Scripts Active Reported Ferrous Sulfate 325 Mg Tablet 325 Mg PO DAILY Tizanidine Hcl 4 Mg Tablet 4 Mg PO PRN Q8MIN PRN Lovastatin 40 Mg Tablet 40 Mg PO DAILY Levothyroxine Sodium 100 Mcg Tablet 100 Mcg PO DAILY Aspirin 325 Mg Tablet 325 Mg PO DAILY Hydrocodone-Apap 7.5-325 (Hydrocodone Bit/Acetaminophen) 1 Each Tablet 1 Tab PO PRN Q6HRS PRN Topiramate 100 Mg Tablet 1 Tab PO BID Fluoxetine Hcl 20 Mg Tablet 20 Mg PO DAILY Omeprazole 20 Mg Tablet.dr 20 Mg PO DAILY Folic Acid 1 Mg Tablet 1 Mg PO DAILY Allergies Allergies: Coded Allergies: Penicillins (Verified Allergy, Intermediate, Hives, 08/16/16) meperidine (Verified Allergy, Intermediate, HAS TOLERATED FENTANYL, 10/03/19) morphine (Verified Adverse Reaction, Intermediate, PT STATED MORPHINE ALLERGIE, BUT STATES IT JUST "UPSETS" HER, 10/02/19) ROS General: No: Chills, Other (fevers ) PSYCHOLOGICAL ROS: No: Anxiety, Depression Eyes: No Blurry vision, No Double vision HEENT: No: Heacaches, Sore Throat Hematological and Lymphatic: No: Bleeding Problems, Blood Clots Respiratory: No: Cough, Shortness of breath Cardiovascular: No Chest Pain, No Palpitations Gastrointestinal: Yes Other (see hpi) Genitourinary: No Dysuria, No Hematuria Musculoskeletal: No Joint Pain, No Muscle Pain Neurological: No Impaired Coord/balance, No Numbness/Tingling Physical Exam General: Alert, Oriented X3, Cooperative HEENT: Atraumatic, PERRLA Lungs: Clear to auscultation, Normal air movement Heart: Regular rate, Normal S1, Normal S2 Abdomen: Soft, Other (TTP moderate to lower abdomen, mildly distended ) Extremities: No clubbing, No cyanosis Skin: No breakdown, No significant lesion Neuro: Normal gait, Normal speech Psych/Mental Status: Mental status NL, Mood NL MUSCULOSKELETAL: No deformity, No swelling Vitals VITALS Vital Signs Date Time Temp Pulse Resp B/P (MAP) Pulse Ox O2 Delivery O2 Flow Rate FiO2 05/04/20 11:00 98.6 100 16 131/61 (84) 96 Room Air 98.6 Labs Labs Laboratory Tests Test 05/03/20 09:10 05/03/20 09:45 05/04/20 05:45 Urine Collection Type Void Urine Color Straw Urine Clarity Clear Urine pH 5.0 (<5.0-8.0) Urine Specific [place] 1.020 (1.000-1.030) Urine Protein 30 mg/dL (NEG-TRACE) Urine Glucose (UA) Negative mg/dL (NEG) Urine Ketones (Stick) Trace mg/dL (NEG) Urine Blood Negative (NEG) Urine Nitrite Negative (NEG) Urine Bilirubin Small (NEG) Urine Urobilinogen Dipstick 0.2 mg/dL (0.2 mg/dL) Urine Leukocyte Esterase Trace (NEG) Urine RBC 0 /HPF (0-2) Urine WBC 1-4 /HPF (0-4) Urine Amorphous Sediment Present /HPF Urine Bacteria Few /HPF (0-FEW) Urine Hyaline Casts Moderate /HPF Urine Granular Casts Few /HPF Urine Mucus Mod /LPF White Blood Count 9.7 x10^3/uL (4.0-11.0) 9.9 x10^3/uL (4.0-11.0) Red Blood Count 4.09 x10^6/uL (3.50-5.40) 3.83 x10^6/uL (3.50-5.40) Hemoglobin 11.9 g/dL (12.0-15.5) 11.0 g/dL (12.0-15.5) Hematocrit 36.4 % (36.0-47.0) 34.7 % (36.0-47.0) Mean Corpuscular Volume 89 fL (79-100) 91 fL (79-100) Mean Corpuscular Hemoglobin 29 pg (25-35) 29 pg (25-35) Mean Corpuscular Hemoglobin Concent 33 g/dL (31-37) 32 g/dL (31-37) Red Cell Distribution Width 15.3 % (11.5-14.5) 15.3 % (11.5-14.5) Platelet Count 278 x10^3/uL (140-400) 256 x10^3/uL (140-400) Neutrophils (%) (Auto) 75 % (31-73) 71 % (31-73) Lymphocytes (%) (Auto) 17 % (24-48) 19 % (24-48) Monocytes (%) (Auto) 7 % (0-9) 9 % (0-9) Eosinophils (%) (Auto) 0 % (0-3) 1 % (0-3) Basophils (%) (Auto) 1 % (0-3) 0 % (0-3) Neutrophils # (Auto) 7.3 x10^3/uL (1.8-7.7) 7.1 x10^3/uL (1.8-7.7) Lymphocytes # (Auto) 1.7 x10^3/uL (1.0-4.8) 1.9 x10^3/uL (1.0-4.8) Monocytes # (Auto) 0.6 x10^3/uL (0.0-1.1) 0.9 x10^3/uL (0.0-1.1) Eosinophils # (Auto) 0.0 x10^3/uL (0.0-0.7) 0.1 x10^3/uL (0.0-0.7) Basophils # (Auto) 0.1 x10^3/uL (0.0-0.2) 0.0 x10^3/uL (0.0-0.2) Sodium Level 145 mmol/L (136-145) 147 mmol/L (136-145) Potassium Level 3.7 mmol/L (3.5-5.1) 3.5 mmol/L (3.5-5.1) Chloride Level 109 mmol/L (98-107) 113 mmol/L (98-107) Carbon Dioxide Level 20 mmol/L (21-32) 19 mmol/L (21-32) Anion Gap 16 (6-14) 15 (6-14) Blood Urea Nitrogen 36 mg/dL (7-20) 30 mg/dL (7-20) Creatinine 1.1 mg/dL (0.6-1.0) 1.1 mg/dL (0.6-1.0) Estimated GFR (Cockcroft-Gault) 47.0 47.0 BUN/Creatinine Ratio 33 (6-20) 27 (6-20) Glucose Level 121 mg/dL (70-99) 91 mg/dL (70-99) Lactic Acid Level 1.6 mmol/L (0.4-2.0) Calcium Level 9.2 mg/dL (8.5-10.1) 8.5 mg/dL (8.5-10.1) Total Bilirubin 0.3 mg/dL (0.2-1.0) 0.3 mg/dL (0.2-1.0) Aspartate Amino Transf (AST/SGOT) 20 U/L (15-37) 22 U/L (15-37) Alanine Aminotransferase (ALT/SGPT) 20 U/L (14-59) 16 U/L (14-59) Alkaline Phosphatase 86 U/L (46-116) 72 U/L (46-116) Total Protein 7.0 g/dL (6.4-8.2) 6.5 g/dL (6.4-8.2) Albumin 3.4 g/dL (3.4-5.0) 2.9 g/dL (3.4-5.0) Albumin/Globulin Ratio 0.9 (1.0-1.7) 0.8 (1.0-1.7) Lipase 43 U/L (73-393) Laboratory Tests Test 05/04/20 05:45 White Blood Count 9.9 x10^3/uL (4.0-11.0) Red Blood Count 3.83 x10^6/uL (3.50-5.40) Hemoglobin 11.0 g/dL (12.0-15.5) Hematocrit 34.7 % (36.0-47.0) Mean Corpuscular Volume 91 fL (79-100) Mean Corpuscular Hemoglobin 29 pg (25-35) Mean Corpuscular Hemoglobin Concent 32 g/dL (31-37) Red Cell Distribution Width 15.3 % (11.5-14.5) Platelet Count 256 x10^3/uL (140-400) Neutrophils (%) (Auto) 71 % (31-73) Lymphocytes (%) (Auto) 19 % (24-48) Monocytes (%) (Auto) 9 % (0-9) Eosinophils (%) (Auto) 1 % (0-3) Basophils (%) (Auto) 0 % (0-3) Neutrophils # (Auto) 7.1 x10^3/uL (1.8-7.7) Lymphocytes # (Auto) 1.9 x10^3/uL (1.0-4.8) Monocytes # (Auto) 0.9 x10^3/uL (0.0-1.1) Eosinophils # (Auto) 0.1 x10^3/uL (0.0-0.7) Basophils # (Auto) 0.0 x10^3/uL (0.0-0.2) Sodium Level 147 mmol/L (136-145) Potassium Level 3.5 mmol/L (3.5-5.1) Chloride Level 113 mmol/L (98-107) Carbon Dioxide Level 19 mmol/L (21-32) Anion Gap 15 (6-14) Blood Urea Nitrogen 30 mg/dL (7-20) Creatinine 1.1 mg/dL (0.6-1.0) Estimated GFR (Cockcroft-Gault) 47.0 BUN/Creatinine Ratio 27 (6-20) Glucose Level 91 mg/dL (70-99) Calcium Level 8.5 mg/dL (8.5-10.1) Total Bilirubin 0.3 mg/dL (0.2-1.0) Aspartate Amino Transf (AST/SGOT) 22 U/L (15-37) Alanine Aminotransferase (ALT/SGPT) 16 U/L (14-59) Alkaline Phosphatase 72 U/L (46-116) Total Protein 6.5 g/dL (6.4-8.2) Albumin 2.9 g/dL (3.4-5.0) Albumin/Globulin Ratio 0.8 (1.0-1.7) Assessment/Plan Assessment/Plan abdominal pain CT showing colitis/diverticulitis wbc normal no surgical indications GI following WILL JETER MD 05/04/20 1437: CONSULT Assessment/Plan Assessment/Plan Agree with above KELL[employer] May 04, 2020 14:35 WILL JETER MD May 04, 2020 14:37
[2020-05-04 15:00] VITALS: BP 138/60
--- NOTE | 2020-05-04 16:14 | RAD ---
KUB History: Worsening left lower quadrant pain, colitis versus diverticulitis on CT Comparison: May 03, 2020 CT abdomen pelvis exam Findings: Single supine AP view of the abdomen is submitted. Exam is insufficient for the evaluation for free air. There is gas in large and small bowel, segments of small bowel somewhat prominent in the pelvis although there is also fairly prominent gas in the ascending and transverse colon. There are several calcifications in the pelvis bilaterally more likely phleboliths. There is degenerative disc disease L2-3. Impression: 1. There is gas in large and small bowel, segments of small bowel dilatation in the pelvis which could be ileus considered more likely than partial obstruction. Electronically signed by: Jose Oreilly MD (05/04/2020 4:11 PM) [id number]
[2020-05-04] MEDS: AMINO AC 3%/ELECTROLYTE/GLYCER 1,000 ML IV SCH (17:17)
[2020-05-04 19:00] VITALS: BP 173/62
[2020-05-04] MEDS: ATORVASTATIN CALCIUM 10 MG TABLET. PO SCH (21:00)
[2020-05-04 23:00] VITALS: BP 136/56
[2020-05-05 03:00] VITALS: BP 156/54
[2020-05-05] MEDS: AMINO AC 3%/ELECTROLYTE/GLYCER 1,000 ML IV SCH (05:22)
[2020-05-05 07:00] VITALS: BP 134/52
[2020-05-05] MEDS: LEVOTHYROXINE 100 MCG TABLET PO SCH (07:00)
[2020-05-05] MEDS: FERROUS SULFATE 325 MG TABLET. PO SCH (07:01)
[2020-05-05] MEDS: ASPIRIN 325 MG TABLET PO SCH (07:01)
[2020-05-05] MEDS: FLUoxetine HCL 20 MG CAPSULE PO SCH (07:02)
[2020-05-05] MEDS: TOPIRAMATE 100 MG TABLET. PO SCH ×2 (07:02→21:12)
[2020-05-05] MEDS: FOLIC ACID 1 MG TABLET. PO SCH (07:02)
[2020-05-05] MEDS: PANTOPRAZOLE IV PUSH 40 MG VIAL. IVP SCH (07:51)
[2020-05-05 07:55] LABS: CALCIUM 8.2 mg/dL (8.5-10.1); CREATININE 1.1 mg/dL (0.6-1.0); POTASSIUM 3.6 mmol/L (3.5-5.1)
--- NOTE | 2020-05-05 09:22 | PDOC ---
SURGICAL PROGRESS NOTE DATE: 05/05/20 TIME: 09:19 Subjective pain is much better does report multiple loose green stools this am Vital Signs Vital Signs Date Time Temp Pulse Resp B/P (MAP) Pulse Ox O2 Delivery O2 Flow Rate FiO2 05/05/20 07:00 98.0 61 16 134/52 (79) 92 Room Air 98.0 General: Alert, Oriented X3, Cooperative Abdomen: Soft, Other (mild ttp RLQ) Labs Laboratory Tests Test 05/03/20 09:45 05/04/20 05:45 05/05/20 07:00 White Blood Count 9.7 x10^3/uL (4.0-11.0) 9.9 x10^3/uL (4.0-11.0) Red Blood Count 4.09 x10^6/uL (3.50-5.40) 3.83 x10^6/uL (3.50-5.40) Hemoglobin 11.9 g/dL (12.0-15.5) 11.0 g/dL (12.0-15.5) Hematocrit 36.4 % (36.0-47.0) 34.7 % (36.0-47.0) Mean Corpuscular Volume 89 fL (79-100) 91 fL (79-100) Mean Corpuscular Hemoglobin 29 pg (25-35) 29 pg (25-35) Mean Corpuscular Hemoglobin Concent 33 g/dL (31-37) 32 g/dL (31-37) Red Cell Distribution Width 15.3 % (11.5-14.5) 15.3 % (11.5-14.5) Platelet Count 278 x10^3/uL (140-400) 256 x10^3/uL (140-400) Neutrophils (%) (Auto) 75 % (31-73) 71 % (31-73) Lymphocytes (%) (Auto) 17 % (24-48) 19 % (24-48) Monocytes (%) (Auto) 7 % (0-9) 9 % (0-9) Eosinophils (%) (Auto) 0 % (0-3) 1 % (0-3) Basophils (%) (Auto) 1 % (0-3) 0 % (0-3) Neutrophils # (Auto) 7.3 x10^3/uL (1.8-7.7) 7.1 x10^3/uL (1.8-7.7) Lymphocytes # (Auto) 1.7 x10^3/uL (1.0-4.8) 1.9 x10^3/uL (1.0-4.8) Monocytes # (Auto) 0.6 x10^3/uL (0.0-1.1) 0.9 x10^3/uL (0.0-1.1) Eosinophils # (Auto) 0.0 x10^3/uL (0.0-0.7) 0.1 x10^3/uL (0.0-0.7) Basophils # (Auto) 0.1 x10^3/uL (0.0-0.2) 0.0 x10^3/uL (0.0-0.2) Sodium Level 145 mmol/L (136-145) 147 mmol/L (136-145) 144 mmol/L (136-145) Potassium Level 3.7 mmol/L (3.5-5.1) 3.5 mmol/L (3.5-5.1) 3.6 mmol/L (3.5-5.1) Chloride Level 109 mmol/L (98-107) 113 mmol/L (98-107) 114 mmol/L (98-107) Carbon Dioxide Level 20 mmol/L (21-32) 19 mmol/L (21-32) 18 mmol/L (21-32) Anion Gap 16 (6-14) 15 (6-14) 12 (6-14) Blood Urea Nitrogen 36 mg/dL (7-20) 30 mg/dL (7-20) 36 mg/dL (7-20) Creatinine 1.1 mg/dL (0.6-1.0) 1.1 mg/dL (0.6-1.0) 1.1 mg/dL (0.6-1.0) Estimated GFR (Cockcroft-Gault) 47.0 47.0 47.0 BUN/Creatinine Ratio 33 (6-20) 27 (6-20) Glucose Level 121 mg/dL (70-99) 91 mg/dL (70-99) 109 mg/dL (70-99) Lactic Acid Level 1.6 mmol/L (0.4-2.0) Calcium Level 9.2 mg/dL (8.5-10.1) 8.5 mg/dL (8.5-10.1) 8.2 mg/dL (8.5-10.1) Total Bilirubin 0.3 mg/dL (0.2-1.0) 0.3 mg/dL (0.2-1.0) Aspartate Amino Transf (AST/SGOT) 20 U/L (15-37) 22 U/L (15-37) Alanine Aminotransferase (ALT/SGPT) 20 U/L (14-59) 16 U/L (14-59) Alkaline Phosphatase 86 U/L (46-116) 72 U/L (46-116) Total Protein 7.0 g/dL (6.4-8.2) 6.5 g/dL (6.4-8.2) Albumin 3.4 g/dL (3.4-5.0) 2.9 g/dL (3.4-5.0) Albumin/Globulin Ratio 0.9 (1.0-1.7) 0.8 (1.0-1.7) Lipase 43 U/L (73-393) Laboratory Tests Test 05/05/20 07:00 Sodium Level 144 mmol/L (136-145) Potassium Level 3.6 mmol/L (3.5-5.1) Chloride Level 114 mmol/L (98-107) Carbon Dioxide Level 18 mmol/L (21-32) Anion Gap 12 (6-14) Blood Urea Nitrogen 36 mg/dL (7-20) Creatinine 1.1 mg/dL (0.6-1.0) Estimated GFR (Cockcroft-Gault) 47.0 Glucose Level 109 mg/dL (70-99) Calcium Level 8.2 mg/dL (8.5-10.1) Problem List Problems Medical Problems: (1) Abdominal pain Status: Acute (2) Diverticulitis Status: Acute Assessment/Plan no surgical needs, will sign off diarrhea as per [facility]PC Justicifation of Admission Dx: Justifications for Admission: Justification of Admission Dx: Yes KELLEN UGALDE APRN May 05, 2020 09:22
--- NOTE | 2020-05-05 09:27 | NUR ---
SW following. Discussed with RN, pt from home with . No surgery needed, possibly advanced diet today. PT/OT ordered. Has had [facility] in the past. SW will continue to follow.
--- NOTE | 2020-05-05 10:12 | PDOC ---
Date of Service: DATE: 05/05/20 TIME: 10:09 Subjective: Subjective: Feels better today. Pain is better. Loose green stools. Wants to try drinking. Wants to go home to her cat Ailyn and her dog Felix. Tells me about her great- grandson who is 5 months old. Objective: Vital Signs: Vital Signs Date Time Temp Pulse Resp B/P (MAP) Pulse Ox O2 Delivery O2 Flow Rate FiO2 05/05/20 07:00 98.0 61 16 134/52 (79) 92 Room Air 98.0 Imaging: KUB 05/04 Impression: 1. There is gas in large and small bowel, segments of small bowel dilatation in the pelvis which could be ileus considered more likely than partial obstruction. PE: GEN: NAD, was resting LUNGS: CTAB HEART: RRR ABD: BS+, RLQ discomfort, soft NEURO/PSYCH: A & O 3 A/P: Lower abd pain - better H/o TONE Abnormal CT - sigmoid colitis or diverticulitis, bladder wall thickening - has h/o SBO/ileus... same on x-ray yesterday? H/o colon cancer/resection w/ suspected ileosigmoid anastomosis -- Try clears. Monitor stools, consider stool studies if indicated. ?PO atbx Justicifation of Admission Dx: Justifications for Admission: Justification of Admission Dx: Yes BAKARI SIMENTAL May 05, 2020 10:12
[2020-05-05 11:00] VITALS: BP 148/67
--- NOTE | 2020-05-05 11:08 | PDOC ---
Renal-Progress Notes Subjective Notes Notes NO NEW COMPLAINTS History of Present Illness Hx of present illness STABLE Vitals Vitals Vital Signs Date Time Temp Pulse Resp B/P (MAP) Pulse Ox O2 Delivery O2 Flow Rate FiO2 05/05/20 08:00 Room Air 05/05/20 07:00 98.0 61 16 134/52 (79) 92 98.0 Weight Weight [ ] Labs Labs Laboratory Tests Test 05/05/20 07:00 Sodium Level 144 mmol/L (136-145) Potassium Level 3.6 mmol/L (3.5-5.1) Chloride Level 114 mmol/L (98-107) Carbon Dioxide Level 18 mmol/L (21-32) Anion Gap 12 (6-14) Blood Urea Nitrogen 36 mg/dL (7-20) Creatinine 1.1 mg/dL (0.6-1.0) Estimated GFR (Cockcroft-Gault) 47.0 Glucose Level 109 mg/dL (70-99) Calcium Level 8.2 mg/dL (8.5-10.1) Review of Systems Constitutional: yes: malaise, weakness, alert Ears/Nose/Throat: Yes: no symptom reported Eyes: Yes: no symptom reported Pulmonary: Yes no symptom reported Cardiovascular: Yes no symptom reported Gastrointestional: Yes: nausea, abdominal pain Genitourinary: Yes: retention Musculoskeletal: Yes: muscle stiffness Skin: Yes no symptom reported Psychiatric/Neurological: Yes: no symptom reported Endocrine: Yes: no symptom reported Physical Exam General Appearance: no apparent distress Skin: warm Respiratory: decreased breath sounds Heart: S1S2 Abdomen: soft, tenderness Genitourinary: bladder flat Extremities: pulses present, no edema Neurology: alert Assessment Assessment Assessment/Plan IMP SBO VS DIVERTICULITIS DEHYDRATION HYPERNATREMIA-BETTER MILD SHOAIB PLAN PROCALAMINE HYDRATION ANTIBIOTIC WILL FOLLOW HUMPHREY GR MD May 05, 2020 11:08
[2020-05-05] MEDS: ENOXAPARIN 40 MG/0.4 ML SYRINGE. SQ SCH (12:43)
--- NOTE | 2020-05-05 13:19 | PDOC ---
PROGRESS NOTES Date of Service: DATE: 05/05/20 TIME: 13:19 Chief Complaint Chief Complaint 1. ACUTE diverticulitis involving the sigmoid colon without peridiverticular abscess or pneumoperitoneum. There is mesenteric edema with presacral edema. 2. Bladder wall thickening with pericystic inflammatory changes as may be seen with infectious or inflammatory cystitis. 3. CKD STAGE 3 4. metabolic acidosis 5. 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 History of Present Illness History of Present Illness gi consult following, continue the iv antibiotics IV FLUID SUPPORT BOWEL REST Full code IV PAIN CONTROL dvt prophylaxis Vitals Vitals Vital Signs Date Time Temp Pulse Resp B/P (MAP) Pulse Ox O2 Delivery O2 Flow Rate FiO2 05/05/20 11:00 97.8 53 16 148/67 (94) 91 Room Air 97.8 Physical Exam General: Alert, Oriented X3, Cooperative Heart: Regular rate, Normal S1, Normal S2 Lungs: Clear, Other Abdomen: Soft, Other (mild ttp RLQ) Extremities: No clubbing, No cyanosis Skin: No breakdown, No significant lesion Labs LABS Laboratory Tests Test 05/05/20 07:00 Sodium Level 144 mmol/L (136-145) Potassium Level 3.6 mmol/L (3.5-5.1) Chloride Level 114 mmol/L (98-107) Carbon Dioxide Level 18 mmol/L (21-32) Anion Gap 12 (6-14) Blood Urea Nitrogen 36 mg/dL (7-20) Creatinine 1.1 mg/dL (0.6-1.0) Estimated GFR (Cockcroft-Gault) 47.0 Glucose Level 109 mg/dL (70-99) Calcium Level 8.2 mg/dL (8.5-10.1) Assessment and Plan Assessmemt and Plan Problems Medical Problems: (1) Abdominal pain Status: Acute (2) Diverticulitis Status: Acute Comment Review of Relevant I have reviewed the following items ruby (where applicable) has been applied. Labs Laboratory Tests Test 05/04/20 05:45 05/05/20 07:00 White Blood Count 9.9 x10^3/uL (4.0-11.0) Red Blood Count 3.83 x10^6/uL (3.50-5.40) Hemoglobin 11.0 g/dL (12.0-15.5) Hematocrit 34.7 % (36.0-47.0) Mean Corpuscular Volume 91 fL (79-100) Mean Corpuscular Hemoglobin 29 pg (25-35) Mean Corpuscular Hemoglobin Concent 32 g/dL (31-37) Red Cell Distribution Width 15.3 % (11.5-14.5) Platelet Count 256 x10^3/uL (140-400) Neutrophils (%) (Auto) 71 % (31-73) Lymphocytes (%) (Auto) 19 % (24-48) Monocytes (%) (Auto) 9 % (0-9) Eosinophils (%) (Auto) 1 % (0-3) Basophils (%) (Auto) 0 % (0-3) Neutrophils # (Auto) 7.1 x10^3/uL (1.8-7.7) Lymphocytes # (Auto) 1.9 x10^3/uL (1.0-4.8) Monocytes # (Auto) 0.9 x10^3/uL (0.0-1.1) Eosinophils # (Auto) 0.1 x10^3/uL (0.0-0.7) Basophils # (Auto) 0.0 x10^3/uL (0.0-0.2) Sodium Level 147 mmol/L (136-145) 144 mmol/L (136-145) Potassium Level 3.5 mmol/L (3.5-5.1) 3.6 mmol/L (3.5-5.1) Chloride Level 113 mmol/L (98-107) 114 mmol/L (98-107) Carbon Dioxide Level 19 mmol/L (21-32) 18 mmol/L (21-32) Anion Gap 15 (6-14) 12 (6-14) Blood Urea Nitrogen 30 mg/dL (7-20) 36 mg/dL (7-20) Creatinine 1.1 mg/dL (0.6-1.0) 1.1 mg/dL (0.6-1.0) Estimated GFR (Cockcroft-Gault) 47.0 47.0 BUN/Creatinine Ratio 27 (6-20) Glucose Level 91 mg/dL (70-99) 109 mg/dL (70-99) Calcium Level 8.5 mg/dL (8.5-10.1) 8.2 mg/dL (8.5-10.1) Total Bilirubin 0.3 mg/dL (0.2-1.0) Aspartate Amino Transf (AST/SGOT) 22 U/L (15-37) Alanine Aminotransferase (ALT/SGPT) 16 U/L (14-59) Alkaline Phosphatase 72 U/L (46-116) Total Protein 6.5 g/dL (6.4-8.2) Albumin 2.9 g/dL (3.4-5.0) Albumin/Globulin Ratio 0.8 (1.0-1.7) Laboratory Tests Test 05/05/20 07:00 Sodium Level 144 mmol/L (136-145) Potassium Level 3.6 mmol/L (3.5-5.1) Chloride Level 114 mmol/L (98-107) Carbon Dioxide Level 18 mmol/L (21-32) Anion Gap 12 (6-14) Blood Urea Nitrogen 36 mg/dL (7-20) Creatinine 1.1 mg/dL (0.6-1.0) Estimated GFR (Cockcroft-Gault) 47.0 Glucose Level 109 mg/dL (70-99) Calcium Level 8.2 mg/dL (8.5-10.1) Microbiology 05/03/20 Urine Culture - Final, Complete Medications Current Medications Sodium Chloride 1,000 ml @ 1,000 mls/hr Q1H IV Last administered on 05/03/20at 09:57; Start 05/03/20 at 09:32; Stop 05/03/20 at 10:31; Status DC Ondansetron HCl (Zofran) 4 mg 1X ONCE IVP Last administered on 05/03/20at 09:57; Start 05/03/20 at 09:45; Stop 05/03/20 at 09:46; Status DC Dicyclomine HCl (Bentyl) 10 mg 1X ONCE IM Last administered on 05/03/20at 09:58; Start 05/03/20 at 09:45; Stop 05/03/20 at 09:46; Status DC Iohexol (Omnipaque 300 Mg/ml) 60 ml 1X ONCE IV Last administered on 05/03/20at 10:49; Start 05/03/20 at 10:45; Stop 05/03/20 at 10:46; Status DC Levofloxacin/ Dextrose 150 ml @ 100 mls/hr 1X ONCE IV Last administered on 05/03/20at 12:59; Start 05/03/20 at 11:30; Stop 05/03/20 at 12:59; Status DC Metronidazole 100 ml @ 100 mls/hr 1X ONCE IV Last administered on 05/03/20at 11:56; Start 05/03/20 at 11:30; Stop 05/03/20 at 12:29; Status DC Ondansetron HCl (Zofran) 4 mg PRN Q8HRS PRN IV NAUSEA/VOMITING; Start 05/03/20 at 11:30; Stop 05/03/20 at 13:38; Status DC Fentanyl Citrate (Fentanyl 2ml Vial) 12.5 mcg 1X ONCE IVP Last administered on 05/03/20at 11:55; Start 05/03/20 at 11:30; Stop 05/03/20 at 11:43; Status DC Sodium Chloride 1,000 ml @ 80 mls/hr [id number] IV Last administered on 05/04/20at 00:53; Start 05/03/20 at 13:00; Stop 05/04/20 at 14:14; Status DC Sodium Chloride (Normal Saline Flush) 3 ml QSHIFT PRN IV AFTER MEDS AND BLOOD DRAWS; Start 05/03/20 at 13:15 Sodium Chloride 1,000 ml @ 80 mls/hr [id number] IV ; Start 05/03/20 at 13:07; Status UNV Ondansetron HCl (Zofran) 4 mg PRN Q4HRS PRN IV NAUSEA/VOMITING Last administered on 05/04/20at 08:25; Start 05/03/20 at 13:15 Acetaminophen (Tylenol) 650 mg PRN Q4HRS PRN PO TEMP OVER 100.4F OR MILD PAIN; Start 05/03/20 at 13:15 Clonidine HCl (Catapres) 0.1 mg PRN Q6HRS PRN PO SBP>160 OR DBP>90; Start 05/03/20 at 13:15 Docusate Sodium (Colace) 100 mg PRN BID PRN PO HARD STOOLS; Start 05/03/20 at 13:15 Albuterol/ Ipratropium (Duoneb) 3 ml Q4HRS NEB Last administered on 05/03/20at 20:21; Start 05/03/20 at 13:15; Stop 05/03/20 at 20:30; Status DC Guaifenesin (Robitussin) 200 mg PRN Q4HRS PRN PO COUGH; Start 05/03/20 at 13:15 Enoxaparin Sodium (Lovenox 40mg Syringe) 40 mg Q24H SQ Last administered on 05/05/20at 12:43; Start 05/03/20 at 14:00 Levofloxacin/ Dextrose 50 ml @ 50 mls/hr Q24H IV Last administered on 05/05/20at 12:43; Start 05/04/20 at 13:00 Metronidazole 100 ml @ 100 mls/hr Q12HR IV Last administered on 05/05/20at 07:51; Start 05/03/20 at 21:00 Aspirin (Jan Aspirin) 325 mg DAILY08 PO ; Start 05/04/20 at 08:00 Ferrous Sulfate (Feosol) 325 mg DAILY08 PO ; Start 05/04/20 at 08:00 Folic Acid (Folic Acid) 1 mg DAILY PO ; Start 05/04/20 at 09:00 Acetaminophen/ Hydrocodone Bitart (Lortab 7.5/325) 1 tab PRN Q6HRS PRN PO MODERATE - SEVERE PAIN Last administered on 05/03/20at 20:35; Start 05/03/20 at 17:30 Levothyroxine Sodium (Synthroid) 100 mcg DAILY07 PO ; Start 05/04/20 at 07:00 Topiramate (Topamax) 100 mg BID PO Last administered on 05/03/20at 20:35; Start 05/03/20 at 21:00 Fluoxetine HCl (PROzac) 20 mg DAILY PO ; Start 05/04/20 at 09:00 Atorvastatin Calcium (Lipitor) 10 mg QHS PO Last administered on 05/03/20at 20:35; Start 05/03/20 at 21:00 Pantoprazole Sodium (PROTONIX VIAL for IV PUSH) 40 mg DAILYAC IVP Last administered on 05/05/20at 07:51; Start 05/04/20 at 07:30; Stop 05/05/20 at 10:13; Status DC Albuterol Sulfate (Ventolin Neb Soln) 2.5 mg PRN Q4HRS PRN NEB SHORTNESS OF BREATH; Start 05/03/20 at 20:45 Zolpidem Tartrate (Ambien) 5 mg PRN QHS PRN PO INSOMNIA Last administered on 05/04/20at 20:59; Start 05/04/20 at 00:45 Ketorolac Tromethamine (Toradol 15mg Vial) 15 mg PRN Q8HRS PRN IVP PAIN Last administered on 05/04/20at 20:59; Start 05/04/20 at 00:45; Stop 05/09/20 at 00:44 Amino Acids/ Glycerin/ Electrolytes 1,000 ml @ 80 mls/hr [id number] IV Last administered on 05/05/20at 05:22; Start 05/04/20 at 14:15 Pantoprazole Sodium (Protonix) 40 mg DAILYAC PO ; Start 05/06/20 at 07:30 Active Scripts Active Reported Ferrous Sulfate 325 Mg Tablet 325 Mg PO DAILY Tizanidine Hcl 4 Mg Tablet 4 Mg PO PRN Q8MIN PRN Lovastatin 40 Mg Tablet 40 Mg PO DAILY Levothyroxine Sodium 100 Mcg Tablet 100 Mcg PO DAILY Aspirin 325 Mg Tablet 325 Mg PO DAILY Hydrocodone-Apap 7.5-325 (Hydrocodone Bit/Acetaminophen) 1 Each Tablet 1 Tab PO PRN Q6HRS PRN Topiramate 100 Mg Tablet 1 Tab PO BID Fluoxetine Hcl 20 Mg Tablet 20 Mg PO DAILY Omeprazole 20 Mg Tablet.dr 20 Mg PO DAILY Folic Acid 1 Mg Tablet 1 Mg PO DAILY Vitals/I & O Vital Sign - Last 24 Hours 05/04/20 05/04/20 05/04/20 05/04/20 15:00 19:00 20:00 23:00 Temp 98.6 98.5 98.5 98.6 98.5 98.5 Pulse 65 85 86 Resp 16 16 16 B/P (MAP) 138/60 (86) 173/62 (99) 136/56 (82) Pulse Ox 96 98 99 O2 Delivery Room Air Room Air Room Air Room Air 05/05/20 05/05/20 05/05/20 05/05/20 03:00 07:00 08:00 11:00 Temp 97.9 98.0 97.8 97.9 98.0 97.8 Pulse 61 61 53 Resp 16 16 16 B/P (MAP) 156/54 (88) 134/52 (79) 148/67 (94) Pulse Ox 97 92 91 O2 Delivery Room Air Room Air Room Air Room Air Justicifation of Admission Dx: Justifications for Admission: Justification of Admission Dx: Yes VIELKA CONTE MD May 05, 2020 13:19
[2020-05-05 15:00] VITALS: BP 155/63
[2020-05-05 19:00] VITALS: BP 156/63
[2020-05-05] MEDS: ONDANSETRON PF 4 MG/2 ML VIAL. IV PRN (20:02)
[2020-05-05] MEDS: metroNIDAZOLE 500 MG TABLET PO SCH (21:11)
[2020-05-05] MEDS: LACTOBACILLUS RHAMNOSUS GG 1 CAPSULE. PO SCH (21:12)
[2020-05-05] MEDS: ATORVASTATIN CALCIUM 10 MG TABLET. PO SCH (21:12)
[2020-05-05 23:00] VITALS: BP 138/77
[2020-05-06 03:00] VITALS: BP 136/64
[2020-05-06] MEDS: LEVOTHYROXINE 100 MCG TABLET PO SCH (06:14)
[2020-05-06 07:00] VITALS: BP 163/47
[2020-05-06 07:10] LABS: CALCIUM 8.7 mg/dL (8.5-10.1); CREATININE 1.3 mg/dL (0.6-1.0); GFR 38.7; POTASSIUM 3.4 mmol/L (3.5-5.1)
[2020-05-06] MEDS: ASPIRIN 325 MG TABLET PO SCH (07:50)
[2020-05-06] MEDS: FLUoxetine HCL 20 MG CAPSULE PO SCH (07:50)
[2020-05-06] MEDS: PANTOPRAZOLE 40 MG TABLET.DR. PO SCH (07:50)
[2020-05-06] MEDS: metroNIDAZOLE 500 MG TABLET PO SCH ×2 (07:51→20:01)
[2020-05-06] MEDS: LACTOBACILLUS RHAMNOSUS GG 1 CAPSULE. PO SCH ×2 (07:51→20:01)
[2020-05-06] MEDS: TOPIRAMATE 100 MG TABLET. PO SCH ×2 (07:51→20:01)
[2020-05-06] MEDS: FERROUS SULFATE 325 MG TABLET. PO SCH (07:51)
[2020-05-06] MEDS: FOLIC ACID 1 MG TABLET. PO SCH (07:52)
--- NOTE | 2020-05-06 09:57 | NUR ---
SW following. Discussed with RN, PT/OT recommending home health. Marnie Teixeira RN to meet with pt to discuss home health. Pt on clear liquid diet, room air. KATHERINE will continue to follow. Addendum: 05/06/20 at 1602 by CHACHA MURPHY Pt accepted with [facility], clinicals faxed. KATHERINE will continue to follow.
--- NOTE | 2020-05-06 10:13 | PDOC ---
Date of Service: DATE: 05/06/20 TIME: 10:11 Subjective: Subjective: Stools "just run out of me," not sure how many today. No pain. Tolerating clears. Hoping to go home soon - cleans her turtle's (Luis Gibson) shell every . Objective: Objective: D/w nurse - three loose stools yesterday. Vital Signs: Vital Signs Date Time Temp Pulse Resp B/P (MAP) Pulse Ox O2 Delivery O2 Flow Rate FiO2 05/06/20 07:00 98.4 59 18 163/47 (85) 97 Room Air 98.4 PE: GEN: NAD LUNGS: CTAB HEART: RRR ABD: quiet BS, non-tender NEURO/PSYCH: A & O 3 A/P: Loose stools H/o TONE Abnormal CT - sigmoid colitis or diverticulitis, bladder wall thickening - has h/o SBO/ileus... same on x-ray yesterday? H/o colon cancer/resection w/ suspected ileosigmoid anastomosis -- Full liquids, ADAT. DC soon if tolerates? Stool studies for completeness. Justicifation of Admission Dx: Justifications for Admission: Justification of Admission Dx: Yes BAKARI SIMENTAL May 06, 2020 10:13
--- NOTE | 2020-05-06 10:28 | PDOC ---
Renal-Progress Notes Subjective Notes Notes NO NEW COMPLAINTS History of Present Illness Hx of present illness STABLE Vitals Vitals Vital Signs Date Time Temp Pulse Resp B/P (MAP) Pulse Ox O2 Delivery O2 Flow Rate FiO2 05/06/20 07:00 98.4 59 18 163/47 (85) 97 Room Air 98.4 Weight Weight [ ] I.O. Intake and Output Intake and Output 05/06/20 07:00 Intake Total 290 ml Balance 290 ml Intake Oral 290 ml # Voids 6 # Bowel Movements 2 Labs Labs Laboratory Tests Test 05/06/20 06:30 Sodium Level 144 mmol/L (136-145) Potassium Level 3.4 mmol/L (3.5-5.1) Chloride Level 112 mmol/L (98-107) Carbon Dioxide Level 18 mmol/L (21-32) Anion Gap 14 (6-14) Blood Urea Nitrogen 32 mg/dL (7-20) Creatinine 1.3 mg/dL (0.6-1.0) Estimated GFR (Cockcroft-Gault) 38.7 Glucose Level 118 mg/dL (70-99) Calcium Level 8.7 mg/dL (8.5-10.1) Micro Micro Microbiology 05/03/20 Urine Culture - Final, Complete Review of Systems Constitutional: yes: malaise, weakness, alert Ears/Nose/Throat: Yes: no symptom reported Eyes: Yes: no symptom reported Pulmonary: Yes no symptom reported Cardiovascular: Yes no symptom reported Gastrointestional: Yes: nausea, abdominal pain Genitourinary: Yes: retention Musculoskeletal: Yes: muscle stiffness Skin: Yes no symptom reported Psychiatric/Neurological: Yes: no symptom reported Endocrine: Yes: no symptom reported Physical Exam General Appearance: no apparent distress Skin: warm Respiratory: decreased breath sounds Heart: S1S2 Abdomen: soft, tenderness Genitourinary: bladder flat Extremities: pulses present, no edema Neurology: alert Assessment Assessment Assessment/Plan IMP SBO VS DIVERTICULITIS DEHYDRATION HYPERNATREMIA-BETTER MILD SHOAIB-CR STABLE AT 1.3 LOW K PLAN OFF PROCALAMINE ENC PO K REPLACEMENT HYDRATION ANTIBIOTIC WILL FOLLOW HUMPHREY GR MD May 06, 2020 10:28
[2020-05-06 11:00] VITALS: BP 151/75
[2020-05-06] MEDS: POTASSIUM CHLORIDE 10MEQ 100 ML IV SCH ×2 (12:09→13:00)
--- NOTE | 2020-05-06 12:44 | PDOC ---
PROGRESS NOTES Date of Service: DATE: 05/06/20 TIME: 12:43 Chief Complaint Chief Complaint 1. ACUTE diverticulitis involving the sigmoid colon without peridiverticular abscess or pneumoperitoneum. There is mesenteric edema with presacral edema. 2. Bladder wall thickening with pericystic inflammatory changes as may be seen with infectious or inflammatory cystitis. 3. acute renal failure, SHOAIB, mild, vasomotor nephropathy, on CKD STAGE 3 4. metabolic acidosis 5. 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 6. hypokalemia 7, diarrhea, possible infectious History of Present Illness History of Present Illness gi consult following, continue the iv antibiotics IV FLUID SUPPORT BOWEL REST Full code IV PAIN CONTROL dvt prophylaxis Vitals Vitals Vital Signs Date Time Temp Pulse Resp B/P (MAP) Pulse Ox O2 Delivery O2 Flow Rate FiO2 05/06/20 11:00 97.5 75 18 151/75 (100) 99 Room Air 97.5 Physical Exam General: Alert, Oriented X3, Cooperative Heart: Regular rate, Normal S1, Normal S2 Lungs: Clear, Other Abdomen: Soft, Other (mild ttp RLQ) Extremities: No clubbing, No cyanosis Skin: No breakdown, No significant lesion Labs LABS Laboratory Tests Test 05/06/20 06:30 Sodium Level 144 mmol/L (136-145) Potassium Level 3.4 mmol/L (3.5-5.1) Chloride Level 112 mmol/L (98-107) Carbon Dioxide Level 18 mmol/L (21-32) Anion Gap 14 (6-14) Blood Urea Nitrogen 32 mg/dL (7-20) Creatinine 1.3 mg/dL (0.6-1.0) Estimated GFR (Cockcroft-Gault) 38.7 Glucose Level 118 mg/dL (70-99) Calcium Level 8.7 mg/dL (8.5-10.1) Review of Systems Review of Systems feels well loose stool, weakness Assessment and Plan Assessmemt and Plan Problems Medical Problems: (1) Abdominal pain Status: Acute (2) Diverticulitis Status: Acute Comment Review of Relevant I have reviewed the following items ruby (where applicable) has been applied. Labs Laboratory Tests Test 05/05/20 07:00 05/06/20 06:30 Sodium Level 144 mmol/L (136-145) 144 mmol/L (136-145) Potassium Level 3.6 mmol/L (3.5-5.1) 3.4 mmol/L (3.5-5.1) Chloride Level 114 mmol/L (98-107) 112 mmol/L (98-107) Carbon Dioxide Level 18 mmol/L (21-32) 18 mmol/L (21-32) Anion Gap 12 (6-14) 14 (6-14) Blood Urea Nitrogen 36 mg/dL (7-20) 32 mg/dL (7-20) Creatinine 1.1 mg/dL (0.6-1.0) 1.3 mg/dL (0.6-1.0) Estimated GFR (Cockcroft-Gault) 47.0 38.7 Glucose Level 109 mg/dL (70-99) 118 mg/dL (70-99) Calcium Level 8.2 mg/dL (8.5-10.1) 8.7 mg/dL (8.5-10.1) Laboratory Tests Test 05/06/20 06:30 Sodium Level 144 mmol/L (136-145) Potassium Level 3.4 mmol/L (3.5-5.1) Chloride Level 112 mmol/L (98-107) Carbon Dioxide Level 18 mmol/L (21-32) Anion Gap 14 (6-14) Blood Urea Nitrogen 32 mg/dL (7-20) Creatinine 1.3 mg/dL (0.6-1.0) Estimated GFR (Cockcroft-Gault) 38.7 Glucose Level 118 mg/dL (70-99) Calcium Level 8.7 mg/dL (8.5-10.1) Microbiology 05/03/20 Urine Culture - Final, Complete Medications Current Medications Sodium Chloride 1,000 ml @ 1,000 mls/hr Q1H IV Last administered on 05/03/20at 09:57; Start 05/03/20 at 09:32; Stop 05/03/20 at 10:31; Status DC Ondansetron HCl (Zofran) 4 mg 1X ONCE IVP Last administered on 05/03/20at 09:57; Start 05/03/20 at 09:45; Stop 05/03/20 at 09:46; Status DC Dicyclomine HCl (Bentyl) 10 mg 1X ONCE IM Last administered on 05/03/20at 09:58; Start 05/03/20 at 09:45; Stop 05/03/20 at 09:46; Status DC Iohexol (Omnipaque 300 Mg/ml) 60 ml 1X ONCE IV Last administered on 05/03/20at 10:49; Start 05/03/20 at 10:45; Stop 05/03/20 at 10:46; Status DC Levofloxacin/ Dextrose 150 ml @ 100 mls/hr 1X ONCE IV Last administered on 05/03/20at 12:59; Start 05/03/20 at 11:30; Stop 05/03/20 at 12:59; Status DC Metronidazole 100 ml @ 100 mls/hr 1X ONCE IV Last administered on 05/03/20at 11:56; Start 05/03/20 at 11:30; Stop 05/03/20 at 12:29; Status DC Ondansetron HCl (Zofran) 4 mg PRN Q8HRS PRN IV NAUSEA/VOMITING; Start 05/03/20 a t 11:30; Stop 05/03/20 at 13:38; Status DC Fentanyl Citrate (Fentanyl 2ml Vial) 12.5 mcg 1X ONCE IVP Last administered on 05/03/20at 11:55; Start 05/03/20 at 11:30; Stop 05/03/20 at 11:43; Status DC Sodium Chloride 1,000 ml @ 80 mls/hr [id number] IV Last administered on 05/04/20at 00:53; Start 05/03/20 at 13:00; Stop 05/04/20 at 14:14; Status DC Sodium Chloride (Normal Saline Flush) 3 ml QSHIFT PRN IV AFTER MEDS AND BLOOD DRAWS; Start 05/03/20 at 13:15 Sodium Chloride 1,000 ml @ 80 mls/hr [id number] IV ; Start 05/03/20 at 13:07; Status UNV Ondansetron HCl (Zofran) 4 mg PRN Q4HRS PRN IV NAUSEA/VOMITING Last administered on 05/05/20at 20:02; Start 05/03/20 at 13:15 Acetaminophen (Tylenol) 650 mg PRN Q4HRS PRN PO TEMP OVER 100.4F OR MILD PAIN; Start 05/03/20 at 13:15 Clonidine HCl (Catapres) 0.1 mg PRN Q6HRS PRN PO SBP>160 OR DBP>90; Start 05/03/20 at 13:15 Docusate Sodium (Colace) 100 mg PRN BID PRN PO HARD STOOLS; Start 05/03/20 at 13:15 Albuterol/ Ipratropium (Duoneb) 3 ml Q4HRS NEB Last administered on 05/03/20at 2 0:21; Start 05/03/20 at 13:15; Stop 05/03/20 at 20:30; Status DC Guaifenesin (Robitussin) 200 mg PRN Q4HRS PRN PO COUGH; Start 05/03/20 at 13:15 Enoxaparin Sodium (Lovenox 40mg Syringe) 40 mg Q24H SQ Last administered on 05/05/20at 12:43; Start 05/03/20 at 14:00; Stop 05/06/20 at 11:52; Status DC Levofloxacin/ Dextrose 50 ml @ 50 mls/hr Q24H IV Last administered on 05/05/20at 12:43; Start 05/04/20 at 13:00; Stop 05/05/20 at 13:22; Status DC Metronidazole 100 ml @ 100 mls/hr Q12HR IV Last administered on 05/05/20at 07:51; Start 05/03/20 at 21:00; Stop 05/05/20 at 13:22; Status DC Aspirin (Jan Aspirin) 325 mg DAILY08 PO Last administered on 05/06/20at 07:50; Start 05/04/20 at 08:00 Ferrous Sulfate (Feosol) 325 mg DAILY08 PO Last administered on 05/06/20at 0 7:51; Start 05/04/20 at 08:00 Folic Acid (Folic Acid) 1 mg DAILY PO Last administered on 05/06/20at 07:52; Start 05/04/20 at 09:00 Acetaminophen/ Hydrocodone Bitart (Lortab 7.5/325) 1 tab PRN Q6HRS PRN PO MODERATE - SEVERE PAIN Last administered on 05/03/20at 20:35; Start 05/03/20 at 17:30 Levothyroxine Sodium (Synthroid) 100 mcg DAILY07 PO Last administered on 05/06/20at 06:14; Start 05/04/20 at 07:00 Topiramate (Topamax) 100 mg BID PO Last administered on 05/06/20 07:51; Start 05/03/20 at 21:00 Fluoxetine HCl (PROzac) 20 mg DAILY PO Last administered on 05/06/20 07:50; Start 05/04/20 at 09:00 Atorvastatin Calcium (Lipitor) 10 mg QHS PO Last administered on 05/05/20at 21:12; Start 05/03/20 at 21:00 Pantoprazole Sodium (PROTONIX VIAL for IV PUSH) 40 mg DAILYAC IVP Last administered on 05/05/20 07:51; Start 05/04/20 at 07:30; Stop 05/05/20 at 10:13; Status DC Albuterol Sulfate (Ventolin Neb Soln) 2.5 mg PRN Q4HRS PRN NEB SHORTNESS OF BREATH; Start 05/03/20 at 20:45 Zolpidem Tartrate (Ambien) 5 mg PRN QHS PRN PO INSOMNIA Last administered on 05/04/20at 20:59; Start 05/04/20 at 00:45 Ketorolac Tromethamine (Toradol 15mg Vial) 15 mg PRN Q8HRS PRN IVP PAIN Last administered on 05/04/20at 20:59; Start 05/04/20 at 00:45; Stop 05/09/20 at 00:44 Amino Acids/ Glycerin/ Electrolytes 1,000 ml @ 80 mls/hr [id number] IV Last administered on 05/05/20at 05:22; Start 05/04/20 at 14:15; Stop 05/05/20 at 13:24; Status DC Pantoprazole Sodium (Protonix) 40 mg DAILYAC PO Last administered on 05/06/20 07:50; Start 05/06/20 at 07:30 Metronidazole (Flagyl) 500 mg Q12HR PO Last administered on 05/06/20 07:51; Start 05/05/20 at 21:00 Levofloxacin (Levaquin) 250 mg DAILY06 PO Last administered on 05/06/20 06:14; Start 05/06/20 at 06:00 Lactobacillus Rhamnosus (Culturelle) 1 cap BID PO Last administered on 05/06/20 07:51; Start 05/05/20 at 21:00 Potassium Chloride/Water 100 ml @ 100 mls/hr Q1H IV Last administered on 05/06/20at 12:09; Start 05/06/20 at 12:00; Stop 05/06/20 at 13:59 Enoxaparin Sodium (Lovenox 30mg Syringe) 30 mg Q24H SQ ; Start 05/06/20 at 14:00 Active Scripts Active Reported Ferrous Sulfate 325 Mg Tablet 325 Mg PO DAILY Tizanidine Hcl 4 Mg Tablet 4 Mg PO PRN Q8MIN PRN Lovastatin 40 Mg Tablet 40 Mg PO DAILY Levothyroxine Sodium 100 Mcg Tablet 100 Mcg PO DAILY Aspirin 325 Mg Tablet 325 Mg PO DAILY Hydrocodone-Apap 7.5-325 (Hydrocodone Bit/Acetaminophen) 1 Each Tablet 1 Tab PO PRN Q6HRS PRN Topiramate 100 Mg Tablet 1 Tab PO BID Fluoxetine Hcl 20 Mg Tablet 20 Mg PO DAILY Omeprazole 20 Mg Tablet.dr 20 Mg PO DAILY Folic Acid 1 Mg Tablet 1 Mg PO DAILY Vitals/I & O Vital Sign - Last 24 Hours 05/05/20 05/05/20 05/05/20 05/05/20 15:00 19:00 20:15 23:00 Temp 98.3 97.1 98.2 98.3 97.1 98.2 Pulse 68 84 106 Resp 18 18 18 B/P (MAP) 155/63 (93) 156/63 (94) 138/77 (97) Pulse Ox 91 95 99 O2 Delivery Room Air Room Air Room Air Room Air 05/06/20 05/06/20 05/06/20 05/06/20 03:00 07:00 08:00 11:00 Temp 98.1 98.4 97.5 98.1 98.4 97.5 Pulse 88 59 75 Resp 18 18 18 B/P (MAP) 136/64 (88) 163/47 (85) 151/75 (100) Pulse Ox 95 97 99 O2 Delivery Room Air Room Air Room Air Room Air Intake and Output 05/05/20 05/05/20 05/06/20 15:00 23:00 07:00 Intake Total 290 ml Balance 290 ml Nutrition Consultation Dietary Evaluation: Recommendations by RD: Dietary education by RD, PPN/TPN Comments: REC Regular diet when able Expected Outcomes/Goals: diet advancement/ tolerance Malnutrition Findings: Body Fat Depletion (Non Severe: Mod to Severe Weight Status: Underweight Justicifation of Admission Dx: Justifications for Admission: Justification of Admission Dx: Yes VIELKA CONTE MD May 06, 2020 12:44
[2020-05-06] MEDS ORDERED: POTASSIUM CHLORIDE 20 MEQ TABLET.ER. PO ONE (13:30)
[2020-05-06 15:00] VITALS: BP 152/83
[2020-05-06] MEDS: ENOXAPARIN 30 MG/0.3 ML SYRINGE. SQ SCH (15:25)
[2020-05-06 19:00] VITALS: BP 125/51
[2020-05-06] MEDS: ATORVASTATIN CALCIUM 10 MG TABLET. PO SCH (20:01)
[2020-05-06 23:00] VITALS: BP 140/55
[2020-05-07 03:00] VITALS: BP 100/49
[2020-05-07] MEDS: PANTOPRAZOLE 40 MG TABLET.DR. PO SCH (06:04)
[2020-05-07] MEDS: LEVOTHYROXINE 100 MCG TABLET PO SCH (06:04)
[2020-05-07 07:00] VITALS: BP 142/78
[2020-05-07 08:12] LABS: CALCIUM 8.5 mg/dL (8.5-10.1); CREATININE 1.1 mg/dL (0.6-1.0); POTASSIUM 3.4 mmol/L (3.5-5.1)
[2020-05-07] MEDS: FERROUS SULFATE 325 MG TABLET. PO SCH (08:29)
[2020-05-07] MEDS: ASPIRIN 325 MG TABLET PO SCH (08:29)
[2020-05-07] MEDS: TOPIRAMATE 100 MG TABLET. PO SCH (08:29)
[2020-05-07] MEDS: FOLIC ACID 1 MG TABLET. PO SCH (08:29)
[2020-05-07] MEDS: FLUoxetine HCL 20 MG CAPSULE PO SCH (08:29)
[2020-05-07] MEDS: metroNIDAZOLE 500 MG TABLET PO SCH (08:29)
[2020-05-07] MEDS: LACTOBACILLUS RHAMNOSUS GG 1 CAPSULE. PO SCH (08:29)
--- NOTE | 2020-05-07 09:42 | NUR ---
SW following. Discussed with RN, pt from home with . Possible discharge home today with [facility]. SW to fax discharge orders when available.
--- NOTE | 2020-05-07 10:05 | PDOC3 ---
Discharge Summary Visit Information Date of Admission: May 03, 2020 Date of Discharge: May 07, 2020 Final Diagnosis 1. ACUTE diverticulitis involving the sigmoid colon without peridiverticular abscess or pneumoperitoneum. There is mesenteric edema with presacral edema. 2. Bladder wall thickening with pericystic inflammatory changes as may be seen with infectious or inflammatory cystitis. 3. acute renal failure, SHOAIB, mild, vasomotor nephropathy, on CKD STAGE 3 4. metabolic acidosis 5. 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 6. hypokalemia 7, diarrhea, possible infectious Problems Medical Problems: (1) Abdominal pain Status: Acute (2) Diverticulitis Status: Acute Brief Hospital Course Allergies Allergies Coded Allergies Type Severity Reaction Last Updated Verified Penicillins Allergy Intermediate Hives 08/16/16 Yes meperidine Allergy Intermediate HAS TOLERATED FENTANYL 10/03/19 Yes morphine Adverse Reaction Intermediate PT STATED MORPHINE ALLERGIE, BUT STATES IT JUST "UPSETS" HER 10/02/19 Yes Vital Signs Vital Signs Date Time Temp Pulse Resp B/P (MAP) Pulse Ox O2 Delivery O2 Flow Rate FiO2 05/07/20 07:54 Room Air 05/07/20 07:00 98.2 99 18 142/78 (99) 98 98.2 Lab Results Laboratory Tests Test 05/06/20 06:30 05/07/20 06:55 Sodium Level 144 mmol/L (136-145) 143 mmol/L (136-145) Potassium Level 3.4 mmol/L (3.5-5.1) 3.4 mmol/L (3.5-5.1) Chloride Level 112 mmol/L (98-107) 112 mmol/L (98-107) Carbon Dioxide Level 18 mmol/L (21-32) 16 mmol/L (21-32) Anion Gap 14 (6-14) 15 (6-14) Blood Urea Nitrogen 32 mg/dL (7-20) 33 mg/dL (7-20) Creatinine 1.3 mg/dL (0.6-1.0) 1.1 mg/dL (0.6-1.0) Estimated GFR (Cockcroft-Gault) 38.7 47.0 Glucose Level 118 mg/dL (70-99) 111 mg/dL (70-99) Calcium Level 8.7 mg/dL (8.5-10.1) 8.5 mg/dL (8.5-10.1) Magnesium Level 2.0 mg/dL (1.8-2.4) Laboratory Tests Test 05/07/20 06:55 Sodium Level 143 mmol/L (136-145) Potassium Level 3.4 mmol/L (3.5-5.1) Chloride Level 112 mmol/L (98-107) Carbon Dioxide Level 16 mmol/L (21-32) Anion Gap 15 (6-14) Blood Urea Nitrogen 33 mg/dL (7-20) Creatinine 1.1 mg/dL (0.6-1.0) Estimated GFR (Cockcroft-Gault) 47.0 Glucose Level 111 mg/dL (70-99) Calcium Level 8.5 mg/dL (8.5-10.1) Magnesium Level 2.0 mg/dL (1.8-2.4) Brief Hospital Course Ms. Castro is a 89 old female,admit with abd pain, see above, better over days. bowel rest, fluid support and abx Discharge Information Condition at Discharge: Improved Follow Up: Weeks Disposition/Orders: D/C to Home w/ HH Scheduled Aspirin (Aspirin) 325 Mg Tablet, 325 MG PO DAILY for heart disease, (Reported) Entered as Reported by: NICHELLE STEINER on 03/24/191999 Last Action: Continued on 05/03/201720 by BHANU SPARKS MD Ferrous Sulfate (Ferrous Sulfate) 325 Mg Tablet, 325 MG PO DAILY for supplement, (Reported) Entered as Reported by: SAMEER BAUTISTA on 05/03/20 1311 Last Action: Continued on 05/03/201720 by BHANU SPARKS MD Fluoxetine Hcl (Fluoxetine Hcl) 20 Mg Tablet, 20 MG PO DAILY, (Reported) Entered as Reported by: JAMES LUCIA on 12/04/131627 Last Action: Converted on 05/03/201720 by BHANU SPARKS MD Folic Acid (Folic Acid) 1 Mg Tablet, 1 MG PO DAILY, (Reported) Entered as Reported by: JAMES LUCIA on 12/04/131627 Last Action: Continued on 05/03/201720 by BHANU SPARKS MD Levothyroxine Sodium (Levothyroxine Sodium) 100 Mcg Tablet, 100 MCG PO DAILY for hypothyroid, (Reported) Entered as Reported by: NICHELLE STEINER on 03/24/191999 Last Action: Continued on 05/03/201720 by BHANU SPARKS MD Lovastatin (Lovastatin) 40 Mg Tablet, 40 MG PO DAILY for cholesterol, (Reported) Entered as Reported by: NICHELLE STEINER on 03/24/191999 Last Action: Converted on 05/03/201720 by BHANU SPARKS MD Omeprazole (Omeprazole) 20 Mg Tablet.dr, 20 MG PO DAILY, (Reported) Entered as Reported by: JAMES LUCIA on 12/04/131627 Last Action: HELD on 05/03/201720 by BHANU SPARKS MD Topiramate (Topiramate) 100 Mg Tablet, 1 TAB PO BID, #60 Ref 1 (Reported) Entered as Reported by: ALAN WELLINGTON on 04/10/151331 Last Action: Continued on 05/03/201720 by BHANU SPARKS MD Scheduled PRN Hydrocodone Bit/Acetaminophen (Hydrocodone-Apap 7.5-325 ) 1 Each Tablet, 1 TAB PO PRN Q6HRS PRN for PAIN, Ref 0 (Reported) Entered as Reported by: ALAN WELLINGTON on 04/10/151332 Last Action: Continued on 05/03/201720 by BHANU SPARKS MD Tizanidine Hcl (Tizanidine Hcl) 4 Mg Tablet, 4 MG PO PRN Q8MIN PRN for MUSCLE SPASTICITY, (Reported) Entered as Reported by: NICHELLE STEINER on 03/24/191999 Last Action: HELD on 05/03/201720 by BHANU SPARKS MD Discontinued Medications Methotrexate Sodium (Methotrexate) 2.5 Mg Tablet, 15 MG PO monday, (Reported) Entered as Reported by: JAMES LUCIA on 12/04/13 161 Last Action: Discontinued on 05/03/201310 by SAMEER BAUTISTA Tramadol Hcl (Tramadol Hcl) 50 Mg Tablet, 50-100 MG PO PRN Q6HRS, (Reported) Entered as Reported by: JAMES LUCIA on 12/04/131627 Last Action: Discontinued on 05/03/201310 by SAMEER BAUTISTA Justicifation of Admission Dx: Justifications for Admission: Justification of Admission Dx: Yes VIELKA CONTE MD May 07, 2020 10:05
--- NOTE | 2020-05-07 10:24 | PDOC ---
Date of Service: DATE: 05/07/20 TIME: 10:21 Subjective: Subjective: Better, ready to get home to pets. Objective: Objective: Nurse told me earlier this morning plans to DC, tolerating full liquids, no concerns for diarrhea. 2 stools charted yesterday. Vital Signs: Vital Signs Date Time Temp Pulse Resp B/P (MAP) Pulse Ox O2 Delivery O2 Flow Rate FiO2 05/07/20 07:54 Room Air 05/07/20 07:00 98.2 99 18 142/78 (99) 98 98.2 Labs: Laboratory Tests Test 05/07/20 06:55 Sodium Level 143 mmol/L Potassium Level 3.4 mmol/L Chloride Level 112 mmol/L Carbon Dioxide Level 16 mmol/L Anion Gap 15 Blood Urea Nitrogen 33 mg/dL Creatinine 1.1 mg/dL Estimated GFR (Cockcroft-Gault) 47.0 Glucose Level 111 mg/dL Calcium Level 8.5 mg/dL Magnesium Level 2.0 mg/dL PE: GEN: NAD LUNGS: CTAB HEART: RRR ABD: soft, non-tender NEURO/PSYCH: A & O 3 A/P: Colitis/diverticulitis vs SBO/ileus H/o colon cancer s/p right colon resection/ileocolic anastomosis -- Plans as above, okay per GI, can follow-up re: stool tests. Justicifation of Admission Dx: Justifications for Admission: Justification of Admission Dx: Yes BAKARI SIMENTAL May 07, 2020 10:23
[2020-05-07 11:00] VITALS: BP 128/72
--- NOTE | 2020-05-07 11:34 | PDOC ---
Renal-Progress Notes Subjective Notes Notes NO NEW COMPLAINTS History of Present Illness Hx of present illness STABLE Vitals Vitals Vital Signs Date Time Temp Pulse Resp B/P (MAP) Pulse Ox O2 Delivery O2 Flow Rate FiO2 05/07/20 11:00 98.0 100 18 128/72 (90) 94 Room Air 98.0 Weight Weight [ ] I.O. Intake and Output Intake and Output 05/07/20 07:00 Intake Total 1350 ml Balance 1350 ml Intake Oral 1100 ml IV Total 100 ml Blood Product IV Normal Saline Flush 150 ml # Voids 3 Labs Labs Laboratory Tests Test 05/07/20 06:55 Sodium Level 143 mmol/L (136-145) Potassium Level 3.4 mmol/L (3.5-5.1) Chloride Level 112 mmol/L (98-107) Carbon Dioxide Level 16 mmol/L (21-32) Anion Gap 15 (6-14) Blood Urea Nitrogen 33 mg/dL (7-20) Creatinine 1.1 mg/dL (0.6-1.0) Estimated GFR (Cockcroft-Gault) 47.0 Glucose Level 111 mg/dL (70-99) Calcium Level 8.5 mg/dL (8.5-10.1) Magnesium Level 2.0 mg/dL (1.8-2.4) Micro Micro Microbiology 05/03/20 Urine Culture - Final, Complete Review of Systems Constitutional: yes: malaise, weakness, alert Ears/Nose/Throat: Yes: no symptom reported Eyes: Yes: no symptom reported Pulmonary: Yes no symptom reported Cardiovascular: Yes no symptom reported Gastrointestional: Yes: nausea, abdominal pain Genitourinary: Yes: retention Musculoskeletal: Yes: muscle stiffness Skin: Yes no symptom reported Psychiatric/Neurological: Yes: no symptom reported Endocrine: Yes: no symptom reported Physical Exam General Appearance: no apparent distress Skin: warm Respiratory: decreased breath sounds Heart: S1S2 Abdomen: soft, tenderness Genitourinary: bladder flat Extremities: pulses present, no edema Neurology: alert Assessment Assessment Assessment/Plan IMP SBO VS DIVERTICULITIS DEHYDRATION HYPERNATREMIA-BETTER MILD SHOAIB-CR STABLE AT 1.1 LOW K PLAN OFF PROCALAMINE ENC PO K REPLACEMENT WILL FOLLOW HUMPHREY GR MD May 07, 2020 11:34
[2020-05-07] MEDS ORDERED: POTASSIUM CHLORIDE 20 MEQ TABLET.ER. PO ONE (11:45)
[2020-05-07] MEDS ORDERED: LEVO250T7 PO (12:02)
[2020-05-07] MEDS ORDERED: HYDR-2765 PO (12:02)
[2020-05-07] MEDS ORDERED: METR500T PO (12:02)
[2020-05-07] MEDS ORDERED: ATOR10TA60 PO (12:02)
--- NOTE | 2020-05-07 12:06 | SNU/HH DC ---
DISCHARGE WITH HOME HEALTH DISCHARGE INFORMATION: Discharge Date: May 07, 2020 Final Diagnosis: acute abd pain colitis, infectious weakness Problems Medical Problems: (1) Abdominal pain Status: Acute (2) Diverticulitis Status: Acute Condition on Discharge: Stable CODE STATUS: Code Status: Full HOME HEALTH: Face to Face: I certify this patient is under my care and that I, or a nurse practitioner or physician's engineer second assistant working with me, had a face to face encounter that meets the physician face to face encounter requirements with this patient on 05/06 Medical Complications: Other (acute colitis, ) Half-Way For: Assess/Skilled Observatio, Medication Management RN For Eval/Treatment: Yes Physical Therapy For: Evalulation/Treatment Occupational Therapy For: Evaluation/Treatment Pt Meets Homebound Status: Unsteady balance w/ amb,, Extreme weakness w/ amb. POST DISCHARGE ORDERS: Activity Instructions for Disc: Activity as tolerated Weight Bearing Status after Di: As tolerated DIET AFTER DISCHARGE: Cardiac CHECKS AFTER DISCHARGE: Checks after discharge: Check blood press - daily, Check your Temp as needed FOLLOW-UP: Follow up with: primary care 2 weeks CERTIFICATION STATEMENT: Certification Statement: Certification Statement: Based on the above finding, I certify that this patient is confined to the home and needs intermittent detention care, physical therapy and/or speech therapy, or continues to need occupational therapy.~ This patient is under my care, and I have initiated the establishment of the plan of care.~ This patient will be followed by myself or a community physician who will periodically review the plan of care. Home Meds Active Scripts Levofloxacin (LEVOFLOXACIN) 250 Mg Tablet, 250 MG PO DAILY06 for colitis, #7 TAB Prov:VIELKA CONTE MD 05/07/20 Atorvastatin Calcium (ATORVASTATIN CALCIUM) 10 Mg Tablet, 10 MG PO QHS for lipids, #30 TAB Prov:VIELKA CONTE MD 05/07/20 Metronidazole (FLAGYL) 500 Mg Tablet, 500 MG PO Q12HR for diverticulitis, #12 TAB Prov:VIELKA CONTE MD 05/07/20 Hydrocodone Bit/Acetaminophen (HYDROCODONE-APAP 7.5-325 ) 1 Each Tablet, 1 TAB PO PRN Q6HRS PRN for PAIN, #30 TAB 0 Refills Prov:VIELKA CONTE MD 05/07/20 Reported Medications Ferrous Sulfate (FERROUS SULFATE) 325 Mg Tablet, 325 MG PO DAILY for supplement, TAB 8/9/20 Tizanidine Hcl (TIZANIDINE HCL) 4 Mg Tablet, 4 MG PO PRN Q8MIN PRN for MUSCLE SPASTICITY 03/24/19 Levothyroxine Sodium (LEVOTHYROXINE SODIUM) 100 Mcg Tablet, 100 MCG PO DAILY for hypothyroid 03/24/19 Aspirin (ASPIRIN) 325 Mg Tablet, 325 MG PO DAILY for heart disease, TAB 03/24/19 Topiramate (TOPIRAMATE) 100 Mg Tablet, 1 TAB PO BID, #60 TAB 1 Refill 04/10/15 Fluoxetine Hcl (FLUOXETINE HCL) 20 Mg Tablet, 20 MG PO DAILY 12/04/13 Omeprazole (OMEPRAZOLE) 20 Mg Tablet.dr, 20 MG PO DAILY 12/04/13 Folic Acid (FOLIC ACID) 1 Mg Tablet, 1 MG PO DAILY 12/04/13 Discontinued Reported Medications Lovastatin (LOVASTATIN) 40 Mg Tablet, 40 MG PO DAILY for cholesterol 03/24/19 Tramadol Hcl (TRAMADOL HCL) 50 Mg Tablet, 50-100 MG PO PRN Q6HRS 12/04/13 Methotrexate Sodium (METHOTREXATE) 2.5 Mg Tablet, 15 MG PO monday12/04/13 VIELKA CONTE MD May 07, 2020 12:06
[2020-05-07] MEDS: ENOXAPARIN 30 MG/0.3 ML SYRINGE. SQ SCH (12:16)
--- NOTE | 2020-05-07 13:25 | NUR ---
Discharge Note: NEW GUPTA Discharge instructions and discharge home medications reviewed with Patient and her and a copy given. All questions have been answered and understanding verbalized. The following instructions and handouts were given: information about home health, medications, follow up appointments, diet, diverticulitis, etc. Discontinued lines and drains: no IV present. Patient discharged to home with home health with , wheelchair used for mobility to discharge vehicle.
== END 2020-05-07 13:25 | disposition home health service (06) | DRG 391 ==
LOC: ER 08:48 → 4 NORTH 11:23
PROVIDERS: ADMIT Family Medicine; ATTEND Family Medicine
DX: K57.92 Diverticulitis of intestine, part unspecified, without perforation or abscess without bleeding (principal); N17.0 Acute kidney failure with tubular necrosis; E87.2 Acidosis; E87.0 Hyperosmolality and hypernatremia; K52.9 Noninfective gastroenteritis and colitis, unspecified; D64.9 Anemia, unspecified; E78.5 Hyperlipidemia, unspecified; E86.0 Dehydration; E87.6 Hypokalemia; F03.90 Unspecified dementia, unspecified severity, without behavioral disturbance, psychotic disturbance, mood disturbance, and anxiety; F17.210 Nicotine dependence, cigarettes, uncomplicated; M06.9 Rheumatoid arthritis, unspecified; M85.80 Other specified disorders of bone density and structure, unspecified site; N18.3 Chronic kidney disease, stage 3 (moderate); Z82.49 Family history of ischemic heart disease and other diseases of the circulatory system; Z85.038 Personal history of other malignant neoplasm of large intestine; Z90.49 Acquired absence of other specified parts of digestive tract; Z90.710 Acquired absence of both cervix and uterus; G43.909 Migraine, unspecified, not intractable, without status migrainosus; M19.90 Unspecified osteoarthritis, unspecified site; Z88.8 Allergy status to other drugs, medicaments and biological substances; Z88.0 Allergy status to penicillin
CPT/HCPCS: 36415; 74018; 74177; 80048; 80053; 81001; 83605; 83690; 83735; 85025; 87086; 87493; 87505; 94640; 94760; 96361; 96365; 96372; 96375; 99285; C9113; J0500; J1650; J1885; J1956; J2405; J3010; J3480; J3490; J7030; Q9967; 97110-GP; 97116-GP; G0378

== ENCOUNTER 2021-05-27 11:54 | Emergency (ER) | payer MEDICARE, BC ==
[~2021-05-27] VITALS: Ht 165.1 cm; Wt 61.0 kg
[~2021-05-27 11:54] MED LIST changes: +ATOR10TA60 PO; +DOXY100T PO; +DULO30CA2 PO; +FERR325T14 PO; +GABA-585 PO; +LEVO250T7 PO; +METR500T PO
[2021-05-27] MEDS ORDERED: IV NORMAL SALINE 500ML BAG 500 ML IV SCH (13:00)
--- NOTE | 2021-05-27 13:02 | PHYS DOC ---
Past Medical History Past Medical History: Anemia, Arthritis, Cancer, Diverticulitis, Renal Disease, Other Additional Past Medical Histor: Area of CA was colon. (ALAN FAITH) Past Surgical History: Other Additional Past Surgical Histo: unable to obtain (ALAN FAITH) Smoking Status: Never Smoker Alcohol Use: None Drug Use: None (ALAN FAITH) General Adult EDM: Chief Complaint: HYPOTENSION Problems: (1) Hypotension (2) Dizziness (ALAN FAITH) HPI: HPI: Patient is a 89 year old female with history of renal disease and recent pneumonia admission who presents from home with a complaint of low blood pressure and dizziness. Patient's daughter is at bedside and assists with providing history. Patient's daughter reports that the patient was discharged from [facility] 4 days ago with at home antibiotics for treatment of pneumonia. Patient reports she has been "unsteady" since arriving back at home. She states that yesterday she bent over on the edge of her bed and fell to the floor and ended up on her back. She now reports low left-sided chest wall pain as a result. Today, physical therapy came to the home to assess and recorded multiple low blood pressure readings, and advised that she come to the ED. Patient denies headache, vision changes, chest pain, abdominal pain, blood in stool or hematuria. (ALAN FAITH) Review of Systems: Review of Systems: Constitutional: Denies fever or chills. [] Eyes: Denies change in visual acuity. [] HENT: Denies nasal congestion or sore throat. [] Respiratory: Reports improvement since hospital stay, and denies ongoing respiratory symptoms. Denies cough or shortness of breath. [] Cardiovascular: Denies chest pain or edema. [] GI: Denies abdominal pain, nausea, vomiting, bloody stools or diarrhea. [] : Denies dysuria, hematuria. [] Musculoskeletal: Reports low left-sided chest wall pain denies back pain or joint pain. [] Neurologic: Denies headache, focal weakness or sensory changes. [] (ALAN FAITH) Heart Score: C/O Chest Pain: No Risk Factors: Risk Factors: DM, Current or recent (<one month) smoker, HTN, HLP, family history of CAD, obesity. Risk Scores: Score 0 - 3: 2.5% MACE over next 6 weeks - Discharge Home Score 4 - 6: 20.3% MACE over next 6 weeks - Admit for Clinical Observation Score 7 - 10: 72.7% MACE over next 6 weeks - Early Invasive Strategies (ALAN FAITH) Allergies: Allergies: Allergies Coded Allergies Type Severity Reaction Last Updated Verified Penicillins Allergy Intermediate Hives 05/27/21 Yes meperidine Allergy Intermediate HAS TOLERATED FENTANYL 05/27/21 Yes morphine Adverse Reaction Intermediate PT STATED MORPHINE ALLERGIE, BUT STATES IT JUST "UPSETS" HER 05/27/21 Yes (ALAN FAITH) Physical Exam: PE: Constitutional: Well developed, well nourished, no acute distress, non-toxic appearance. [] HENT: Normocephalic, atraumatic, bilateral external ears normal, oropharynx moist, no oral exudates, nose normal. Patient has some missing dentition. [] Eyes: PERRLA, EOMI, conjunctiva normal, no discharge. [] Neck: Normal range of motion, no tenderness, supple, no stridor. [] Cardiovascular:Heart rate regular rhythm, no murmur [] Lungs & Thorax: Bilateral breath sounds clear to auscultation tenderness to palpation over anterior and lateral low right-sided chest wall. [] Abdomen: Bowel sounds normal, soft, no tenderness, no masses, no pulsatile masses. [] Skin: Warm, dry, no erythema, no rash. [] Back: No tenderness.[] Extremities: No tenderness, no cyanosis, no clubbing, ROM intact, no edema. [] Neurologic: Alert and oriented X 3, normal motor function, normal sensory function, no focal deficits noted. [] Psychologic: Affect normal, judgement normal, mood normal. [] (ALAN FAITH) Current Patient Data: Labs: Laboratory Tests Test 05/27/21 13:45 White Blood Count 9.6 x10^3/uL (4.0-11.0) Red Blood Count 3.45 x10^6/uL (3.50-5.40) Hemoglobin 10.1 g/dL (12.0-15.5) Hematocrit 31.0 % (36.0-47.0) Mean Corpuscular Volume 90 fL (79-100) Mean Corpuscular Hemoglobin 29 pg (25-35) Mean Corpuscular Hemoglobin Concent 33 g/dL (31-37) Red Cell Distribution Width 15.4 % (11.5-14.5) Platelet Count 308 x10^3/uL (140-400) Neutrophils (%) (Auto) 59 % (31-73) Lymphocytes (%) (Auto) 26 % (24-48) Monocytes (%) (Auto) 11 % (0-9) Eosinophils (%) (Auto) 4 % (0-3) Basophils (%) (Auto) 1 % (0-3) Neutrophils # (Auto) 5.7 x10^3/uL (1.8-7.7) Lymphocytes # (Auto) 2.5 x10^3/uL (1.0-4.8) Monocytes # (Auto) 1.0 x10^3/uL (0.0-1.1) Eosinophils # (Auto) 0.3 x10^3/uL (0.0-0.7) Basophils # (Auto) 0.1 x10^3/uL (0.0-0.2) Vital Signs: Vital Signs Date Time Temp Pulse Resp B/P (MAP) Pulse Ox O2 Delivery O2 Flow Rate FiO2 05/27/21 12:34 97.5 73 18 116/55 98 Room Air 97.5 (ALAN FAITH) EKG: EKG: [] (ALAN FAITH) Radiology/Procedures: Radiology/Procedures: PROCEDURE: CHEST PA & LATERAL PA and lateral chest. HISTORY: Chest wall pain PA and lateral views were taken of the chest. There is no pneumothorax or pleural effusion. There is atelectasis or scarring or mild infiltrate along the left heart border, there is atelectasis in this location on the CT from May 12. Mild infiltrates noted on the CT from May 12 have improved. Heart is normal in size without heart failure. IMPRESSION: 1. Scarring or atelectasis along the left heart border. 2. Improvement in infiltrates noted compared to the CT from May 12.. 3. No new infiltrates noted. Electronically signed by: Delonte Hernandez MD (05/27/2021 1:53 PM) [facility] (ALAN FAITH) Course & Med Decision Making: Course & Med Decision Making Pertinent Labs and Imaging studies reviewed. (See chart for details) Patient history and work-up was not concerning for neurological causes or furthe r infection. As today was the first day of the patient's rehabilitation course at home, further therapy will improve the patient's condition. Patient's blood pressure remained stable throughout her time in the emergency department, and the patient does state that she feels better after being administered IV fluids. (ALAN FAITH) Course & Med Decision Making I have reviewed and was available for consultation in the emergency department for this patient that was seen by midlevel provider. Agree with plan. Nereida eRyna DO (NEREIDA REYNA DO) Dragon Disclaimer: Dragon Disclaimer: This electronic medical record was generated, in whole or in part, using a voice recognition dictation system. (ALAN FAITH) Departure Departure Impression: Primary Impression: Dizziness Disposition: 01 HOME / SELF CARE / HOMELESS Condition: STABLE Referrals: OREN ARCEO MD (PCP) Patient Instructions: Hypotension, [id number] ALAN FAITH May 27, 2021 13:02 NEREIDA REYNA DO May 27, 2021 15:12
[2021-05-27 13:49] LABS: BASO # 0.1 x10^3/uL (0.0-0.2); BASO % 1 % (0-3); EOS # 0.3 x10^3/uL (0.0-0.7); EOS % 4 % (0-3); HEMOGLOBIN 10.1 g/dL (12.0-15.5); LYMPH # 2.5 x10^3/uL (1.0-4.8); LYMPH % 26 % (24-48); MEAN CORPUSCULAR HEMOGLOBIN 29 pg (25-35); MEAN CORPUSCULAR HGB CONC 33 g/dL (31-37); MEAN CORPUSCULAR VOLUME 90 fL (79-100); MONO % 11 % (0-9); NEUT # 5.7 x10^3/uL (1.8-7.7); NEUT % 59 % (31-73); PLATELET COUNT 308 x10^3/uL (140-400); RED BLOOD COUNT 3.45 x10^6/uL (3.50-5.40); RED CELL DISTRIBUTION WIDTH 15.4 % (11.5-14.5); WHITE BLOOD COUNT 9.6 x10^3/uL (4.0-11.0)
--- NOTE | 2021-05-27 13:55 | RAD ---
PA and lateral chest. HISTORY: Chest wall pain PA and lateral views were taken of the chest. There is no pneumothorax or pleural effusion. There is atelectasis or scarring or mild infiltrate along the left heart border, there is atelectasis in this location on the CT from May 12. Mild infiltrates noted on the CT from May 12 have improved. Hea rt is normal in size without heart failure. IMPRESSION: 1. Scarring or atelectasis along the left heart border. 2. Improvement in infiltrates noted compared to the CT from May 12.. 3. No new infiltrates noted. Electronically signed by: Delonte Hernandez MD (05/27/2021 1:53 PM) [facility]
[2021-05-27 14:01] LABS: BILIRUBIN,URINE NEGATIVE (NEG); CLARITY,URINE CLEAR; COLOR,URINE YELLOW; NITRITE,URINE NEGATIVE (NEG); PH,URINE 5.5 (<5.0-8.0); PROTEIN,URINE NEGATIVE (NEG-TRACE); UROBILINOGEN,URINE 0.2 mg/dL (0.2 mg/dL)
[2021-05-27 14:03] LABS: CALCIUM 9.2 mg/dL (8.5-10.1); CREATININE 1.7 mg/dL (0.6-1.0); GFR 28.3; POTASSIUM 3.9 mmol/L (3.5-5.1)
[2021-05-27 14:10] LABS: BACTERIA,URINE FEW /HPF (0-FEW)
[2021-05-27 14:11] LABS: HYALINE CASTS, URINE FEW /HPF; RBC,URINE 0 /HPF (0-2)
[2021-05-27 14:12] LABS: GRANULAR CASTS,URINE OCCASIONAL /HPF
[2021-05-27 15:47] VITALS: BP 158/75
== END 2021-05-27 15:48 | disposition home or self-care (01) ==
LOC: ER 11:54
DX: I95.9 Hypotension, unspecified (principal); R42 Dizziness and giddiness; R07.89 Other chest pain; M19.90 Unspecified osteoarthritis, unspecified site; Z86.2 Personal history of diseases of the blood and blood-forming organs and certain disorders involving the immune mechanism; W18.39XA Other fall on same level, initial encounter; Y93.89 Activity, other specified; Y92.89 Other specified places as the place of occurrence of the external cause; Y99.8 Other external cause status
CPT/HCPCS: 36415; 71046; 80048; 81001; 85025; 99284; J7040

== ENCOUNTER → 2021-06-14 | Outpatient (CLI) | payer MEDICARE, BC ==
[2021-05-27 15:47] VITALS: BP 158/75
--- NOTE | 2021-06-14 17:05 | CARD ---
MR#: [id number] Date of Study: 06/14/2021 Ordering Physician: EFRAIN JAQUEZ, Referring Physician: EFRAIN JAQUEZ, Tech: APPROVED REPORT EXAM: Two-dimensional and M-mode echocardiogram with Doppler and color Doppler. INDICATION Dyspnea RISK FACTORS Hypertension 2D DIMENSIONS RVDd2.6 (2.9-3.5cm)Left Atrium(2D)3.1 (1.6-4.0cm) IVSd1.0 (0.7-1.1cm)Aortic Root(2D)3.3 (2.0-3.7cm) LVDd3.6 (3.9-5.9cm)LVOT Diameter2.0 (1.8-2.4cm) PWd1.2 (0.7-1.1cm)LVDs2.1 (2.5-4.0cm) FS (%) 43.3 %SV42.4 ml LVEF(%)75.4 (>50%) Aortic Valve AoV Peak Ibrahima.130.3cm/sAoV VTI30.0cm AO Peak GR.6.8mmHgLVOT Peak Ibrahima.106.1cm/s AO Mean GR.3mmHgAVA (VMAX)2.56cm2 Mitral Valve MV E Lgynyffk13.2cm/sMV DECEL FAYE950lg MV A Ornreukh381.7cm/sE/A Ratio0.7 Pulmonary Valve PV Peak Zclstxbf07.7cm/s Tricuspid Valve TR P. Leuwniew243qe/sTR Peak Gr.36mmHg LEFT VENTRICLE The left ventricle is normal size. There is mild concentric left ventricular hypertrophy. The left ve ntricular systolic function is normal. Estimated ejection fraction 55-60%. There is normal LV segmen chon wall motion. Transmitral Doppler flow pattern is Grade I-abnormal relaxation pattern. RIGHT VENTRICLE The right ventricle is normal size. There is normal right ventricular wall thickness. The right ventr icular systolic function is normal. ATRIA The left atrium size is normal. The right atrium size is normal. The interatrial septum is intact wit h no evidence for an atrial septal defect or patent foramen ovale as noted on 2-D or Doppler imaging. AORTIC VALVE The aortic valve is normal in structure and function. Doppler and Color Flow revealed mild aortic reg urgitation. There is no significant aortic valvular stenosis. MITRAL VALVE The mitral valve is normal in structure and function. There is no evidence of mitral valve prolapse. There is no mitral valve stenosis. Doppler and Color-flow revealed trace mitral regurgitation. TRICUSPID VALVE The tricuspid valve is normal in structure and function. Doppler and Color Flow revealed mild tricusp id regurgitation. There is no tricuspid valve stenosis. PULMONIC VALVE The pulmonary valve is normal in structure and function. Doppler and Color Flow revealed no pulmonic valvular regurgitation. GREAT VESSELS The aortic root is normal in size. The ascending aorta is normal in size. PERICARDIAL EFFUSION There is no evidence of significant pericardial effusion. Critical Notification Critical Value: No <Conclusion> The left ventricular systolic function is normal. Estimated ejection fraction 55-60%. There is normal LV segmental wall motion. Transmitral Doppler flow pattern is Grade I-abnormal relaxation pattern. Mild aortic regurgitation. Trace mitral regurgitation. Mild tricuspid regurgitation. Estimated PAP 38-40 mm Hg. There is no evidence of significant pericardial effusion. Signed by : Tj Maldonado, Electronically Approved : 06/14/2021 17:05:44
== END ==
LOC: ECHO 09:30
PROVIDERS: ATTEND Internal Medicine Cardiovascular Disease
DX: I08.2 Rheumatic disorders of both aortic and tricuspid valves (principal); I11.9 Hypertensive heart disease without heart failure; R01.1 Cardiac murmur, unspecified
CPT/HCPCS: 93306

== ENCOUNTER 2021-07-13 10:16 | Emergency (ER) | payer MEDICARE, BC ==
[~2021-07-13] VITALS: Ht 167.6 cm; Wt 47.7 kg
[2021-07-13] MEDS ORDERED: IV NORMAL SALINE 1000ML BAG 1,000 ML IV ONE (11:00)
[2021-07-13] MEDS ORDERED: LIDOCAINE/EPI/TETRACAINE TOPICAL GEL 3 ML. TP ONE (11:00)
--- NOTE | 2021-07-13 11:02 | PHYS DOC ---
Past Medical History Past Medical History: Anemia, Arthritis, Cancer, Diverticulitis, Renal Disease, Other Additional Past Medical Histor: Area of CA was colon. Past Surgical History: Appendectomy, Cholecystectomy, Colectomy, Hysterectomy, Tonsillectomy Additional Past Surgical Histo: unable to obtain Smoking Status: Never Smoker Alcohol Use: None Drug Use: None General Adult EDM: Chief Complaint: MECHANICAL FALL HPI: HPI: Patient is a 89 year old female here with report of dizziness and a fall at home, which occurred this morning. She is brought in by her granddaughter. The patient reports that she was walking across the room in her house, and she tripped and fell and hit her head against a dresser. She has a scalp laceration. It sounds like her heard her fall and came to her side quickly, and he reportedly "shook her" and she awoke quickly. Does not sound like she sustained true loss of consciousness. The patient's only complaint is that she has been feeling dizzy for quite some time. She is taking ov el-apx-obhoizp cough and cold medications, and she has had a cough for nearly a week. She denies chest pain or dyspnea. She denies fevers. She does report some generalized malaise and fatigue. She denies abdominal pain, nausea vomiting. She denies focal weakness, numbness or tingling. She denies neck pain or back pain. Her only complaint is currently having headache pain at her laceration site. No other injuries reported. She is supposed to ambulate with a cane, which she admits that she only does when she is outside of her home, and she does not use a cane or ambulatory device inside of her home. Her granddaughter reports that she has had increasing number of falls recently. Review of Systems: Review of Systems: Constitutional: Denies fever or chills. [] Eyes: Denies change in visual acuity. [] HENT: Reports nasal congestion. Denies sore throat. Denies epistaxis. Respiratory: Ports cough and congestion. Denies dyspnea. Cardiovascular: Nuys chest pain. Denies peripheral edema. Denies syncope. GI: Denies abdominal pain, nausea, vomiting. : Denies urinary symptoms. Musculoskeletal: Denies back pain or joint pain. Denies neck pain. Integument: Denies rash. She has a scalp laceration. Neurologic: Reports headache since fall and head injury, scalp laceration pain. She admits to dizziness, which she describes more as lightheadedness. Denies syncope. Denies focal weakness or numbness or tingling. Psychiatric: Denies depression or anxiety. [] Heart Score: C/O Chest Pain: No Risk Factors: Risk Factors: DM, Current or recent (<one month) smoker, HTN, HLP, family history of CAD, obesity. Risk Scores: Score 0 - 3: 2.5% MACE over next 6 weeks - Discharge Home Score 4 - 6: 20.3% MACE over next 6 weeks - Admit for Clinical Observation Score 7 - 10: 72.7% MACE over next 6 weeks - Early Invasive Strategies Allergies: Allergies: Allergies Coded Allergies Type Severity Reaction Last Updated Verified Penicillins Allergy Intermediate Hives 07/13/21 Yes meperidine Allergy Intermediate HAS TOLERATED FENTANYL 07/13/21 Yes morphine Adverse Reaction Intermediate PT STATED MORPHINE ALLERGIE, BUT STATES IT JUST "UPSETS" HER 07/13/21 Yes Physical Exam: PE: Constitutional: Awake, alert, frail and chronically ill-appearing. She is nontoxic. HENT: She has a soft tissue hematoma with overlying scalp laceration of her mid to left parietal scalp. There is soft tissue tenderness. No palpable crepitus or step-offs. No active bleeding. There is gapping of the laceration and subcutaneous fat noted. No visible galea or skull is visualized on gross examination. TMs are clear bilaterally, no hemotympanum. No otorrhea. No rhinorrhea. Mucous membranes are dry. Eyes: PERRL, EOMI, conjunctiva normal, no discharge. [] Neck: Normal range of motion, no tenderness, supple, no midline tenderness or step-offs. No deformity. Cardiovascular:Heart rate regular rhythm, +2 radial and dorsalis pedis pulses bilaterally. Lungs & Thorax: Equal chest rise, no distress, diffuse bilateral coarse rhonchi are noted. No wheezes or stridor. No distress noted. Abdomen: Bowel sounds normal, soft, no tenderness, no masses, no pulsatile masses. [] Skin: She has a mid to left parietal scalp hematoma and laceration, as described above. Back: No tenderness, no CVA tenderness. Full range of motion. No step-offs or midline tenderness. Extremities: No tenderness, no cyanosis, no clubbing, ROM intact, no edema. Pelvis is stable. No calf tenderness. No limb deformity. Neurologic: Alert and oriented X 3, cranial nerves II through XII grossly intact. 5 out of 5 motor strength all 4 extremities. Sensation appears to be grossly intact. Speech is clear and fluent. Psychologic: Mildly anxious but cooperative and pleasant. Current Patient Data: Vital Signs: Vital Signs Date Time Temp Pulse Resp B/P (MAP) Pulse Ox O2 Delivery O2 Flow Rate FiO2 07/13/21 10:40 72 18 111/56 (74) 93 Room Air EKG: EKG: EKG is interpreted at 1054 Rhythm is sinus Rate is 75 bpm [place] is left Low voltage Baseline artifact No STEMI Radiology/Procedures: Radiology/Procedures: IMAGING REPORT Signed PATIENT: NEW GUPTA: [id number] : 1930 LOCATION: ER AGE: 89 SEX: F EXAM STATUS: PRE ER ORD. PHYSICIAN: TATY GARAY DO REASON: cough PROCEDURE: CHEST AP ONLY XR CHEST 1V CLINICAL INDICATIONS: Reason: cough / Spl. Instructions: / History: COMPARISON: May 10, 2021. May 27, 2021. Findings: Chronic interstitial lung infiltrates are unchanged. There is chronic mild blunting of the left lateral costophrenic angle. No new lung infiltrate or pleural effusion or pulmonary edema or lung mass or pneumothorax is seen. The heart size, pulmonary vasculature, mediastinum and both gunjan are stable. IMPRESSION: No new radiographic abnormality is seen. Electronically signed by: Matheus Morales MD (07/13/2021 11:13 AM) [id number] DICTATED and SIGNED BY: MATHEUS MORALES MD DATE: 07/13/21 [id number] IMAGING REPORT Signed PATIENT: NEW GUPTACCOUNT: [id number] : 1930 LOCATION: ER AGE: 89 SEX: F EXAM STATUS: PRE ER ORD. PHYSICIAN: TATY GARAY DO REASON: fall, head injury PROCEDURE: CT HEAD AND CERVICAL SPINE WO CT HEAD AND C-SPINE WO Date: 07/13/2021 11:05 AM Clinical Indication: Pain, fall, head injury Comparison: CT cervical spine 10/17/2017. Technique: 5 mm axial tomographic images were obtained of the head without con trast. These were viewed on brain and bone windows. Noncontrast CT of the cervical spine was performed. Sagittal and coronal reformats were performed and evaluated. One or more of the following dose reduction techniques were utilized: Automated exposure control (AEC), Adjustment of mA and/or kV according to patient size, Use of iterative reconstruction technique such as ASiR, CT scan done according to ALARA and image gently/image wisely HEAD FINDINGS: Mild generalized cerebral and cerebellar volume loss. Mild nonspecific periventricular hypoattenuation, most commonly seen with chronic small vessel ischemic disease. No intra- or extra-axial mass or fluid collection. No acute hemorrhage. The ventricles are normal in size, shape, and morphology. The buchanan-white matter junction is normal. The basilar cisterns are patent. The visualized paranasal sinuses are normal. The visualized portions of the orbits and globes are normal. The mastoid air cells are clear. No aggressive osseous lesion or fracture. CERVICAL SPINE FINDINGS: The cervical spine is normally aligned. No acute fracture. No aggressive lytic or blastic osseous lesions. Mild multilevel degenerative disc space height loss. Multilevel mild spinal canal stenosis secondary to disc protrusions and marginal osteophytes. Multilevel mild neuroforaminal narrowing secondary to uncovertebral arthrosis. Multilevel mild and moderate facet arthrosis. The thyroid gland is normal. No cervical lymphadenopathy. Bilateral carotid atherosclerosis. The visualized aerodigestive tract is normal. Mild biapical subpleural fibrosis. IMPRESSION: 1. No acute intracranial process. 2. No acute cervical spine fracture. Electronically signed by: Louise Greco MD (07/13/2021 11:28 AM) [id number] DICTATED and SIGNED BY: LOUISE GRECO MD DATE: 07/13/21 [id number] Course & Med Decision Making: Course & Med Decision Making Pertinent Labs and Imaging studies reviewed. (See chart for details) The findings, differential diagnosis and plan of care are discussed with the patient. She is no longer dizzy, she feels well. She is anxious for discharge. She is given a liter of IV fluids. She tolerated laceration repair quite well. I discussed home care instructions with her. Her granddaughter picked her to take her home. The patient feels very comfortable returning home. I did tell her she should use her cane at all times for ambulation, so as to try to avoid further falls or further injury. Strict return precautions are given. I told her to contact her PCP for follow-up. She verbalizes understanding of instructions given. Shilpi Disclaimer: Shilpi Disclaimer: This electronic medical record was generated, in whole or in part, using a voice recognition dictation system. Laceration Repair Lac Repair Indication: Scalp laceration Procedure: The patient was placed in the appropriate position and anesthesia around the scalp laceration, using apical LET gel, as well as injectable lidocaine with epinephrine. The area was then cleaned with Betadine and copiously irrigated with normal saline. The laceration was using 4-0 Vicryl subcuticular sutures, #2 placed. Subcutaneous tissue was adequately approximated. A total of 10 mckenzie were placed to the external wound. The wound edges everted appropriately. Hemostasis achieved. There were no complications. The patient tolerated procedure well. Total repaired wound length: Total length of the laceration was 9 cm. Other Items: 2 layer closure, with subcuticular Vicryl sutures as well as mckenzie. The patient tolerated the procedure well. Complications: None Departure Departure Impression: Primary Impression: Fall at home Additional Impressions: Scalp laceration Scalp contusion Disposition: 01 HOME / SELF CARE / HOMELESS Condition: STABLE Referrals: OREN ARCEO MD (PCP) Patient Instructions: Fall Prevention and Home Safety, Laceration Care, Adult, Scalp Hematoma Additional Instructions: Keep your wound clean and dry. Avoid submersion or soaking your wound. Keep it clean and dry. Return to the ER immediately for any severe pain, increase in swelling, redness, fever 100.4 or higher, yellow or green fluid drainage from the wound, severe headache, severe dizziness, new injury or trauma, uncontrolled vomiting or any other concerns you may have. You may follow-up here in the ER or with your primary care physician for staple removal in the next 7 to 10 days. TATY GARAY DO Jul 13, 2021 11:02
--- NOTE | 2021-07-13 11:15 | RAD ---
XR CHEST 1V CLINICAL INDICATIONS: Reason: cough / Spl. Instructions: / History: COMPARISON: May 10, 2021. May 27, 2021. Findings: Chronic interstitial lung infiltrates are unchanged. There is chronic mild blunting of the left lateral costophrenic angle. No new lung infiltrate or pleural effusion or pulmonary edema or roberto carlos g mass or pneumothorax is seen. The heart size, pulmonary vasculature, mediastinum and both gunjan are stable. IMPRESSION: No new radiographic abnormality is seen. Electronically signed by: Pavan Morales MD (07/13/2021 11:13 AM) [id number]
--- NOTE | 2021-07-13 11:31 | RAD ---
CT HEAD AND C-SPINE WO Date: 07/13/2021 11:05 AM Clinical Indication: Pain, fall, head injury Comparison: CT cervical spine 10/17/2017. Technique: 5 mm axial tomographic images were obtained of the head without contrast. These were view ed on brain and bone windows. Noncontrast CT of the cervical spine was performed. Sagittal and coreas l reformats were performed and evaluated. One or more of the following dose reduction techniques were utilized: Automated exposure control (AEC), Adjustment of mA and/or kV according to patient size, Us e of iterative reconstruction technique such as ASiR, CT scan done according to ALARA and image gentl y/image wisely HEAD FINDINGS: Mild generalized cerebral and cerebellar volume loss. Mild nonspecific periventricular hypoattenuatio n, most commonly seen with chronic small vessel ischemic disease. No intra- or extra-axial mass or fluid collection. No acute hemorrhage. The ventricles are normal in size, shape, and morphology. The buchanan-white matter junction is normal. The basilar cisterns are paten t. The visualized paranasal sinuses are normal. The visualized portions of the orbits and globes are no rmal. The mastoid air cells are clear. No aggressive osseous lesion or fracture. CERVICAL SPINE FINDINGS: The cervical spine is normally aligned. No acute fracture. No aggressive lytic or blastic osseous les ions. Mild multilevel degenerative disc space height loss. Multilevel mild spinal canal stenosis secondary to disc protrusions and marginal osteophytes. Multilevel mild neuroforaminal narrowing secondary to u ncovertebral arthrosis. Multilevel mild and moderate facet arthrosis. The thyroid gland is normal. No cervical lymphadenopathy. Bilateral carotid atherosclerosis. The visu alized aerodigestive tract is normal. Mild biapical subpleural fibrosis. IMPRESSION: 1. No acute intracranial process. 2. No acute cervical spine fracture. Electronically signed by: Jose Greco MD (07/13/2021 11:28 AM) [id number]
[2021-07-13 11:34] LABS: CALCIUM 8.6 mg/dL (8.5-10.1); CREATININE 1.5 mg/dL (0.6-1.0); GFR 32.7; POTASSIUM 4.9 mmol/L (3.5-5.1)
[2021-07-13 11:35] LABS: MAGNESIUM 2.1 mg/dL (1.8-2.4)
[2021-07-13 11:58] LABS: BASO % 1 % (0-3); EOS # 0.2 x10^3/uL (0.0-0.7); EOS % 2 % (0-3); HEMATOCRIT 29.2 % (36.0-47.0); HEMOGLOBIN 9.3 g/dL (12.0-15.5); LYMPH # 1.8 x10^3/uL (1.0-4.8); LYMPH % 20 % (24-48); MEAN CORPUSCULAR HEMOGLOBIN 30 pg (25-35); MEAN CORPUSCULAR HGB CONC 32 g/dL (31-37); MEAN CORPUSCULAR VOLUME 92 fL (79-100); MONO # 1.3 x10^3/uL (0.0-1.1); MONO % 14 % (0-9); NEUT # 5.8 x10^3/uL (1.8-7.7); NEUT % 64 % (31-73); PLATELET COUNT 195 x10^3/uL (140-400); RED BLOOD COUNT 3.16 x10^6/uL (3.50-5.40); RED CELL DISTRIBUTION WIDTH 15.9 % (11.5-14.5)
[2021-07-13 11:59] LABS: BILIRUBIN,URINE NEGATIVE (NEG); CLARITY,URINE CLOUDY; COLOR,URINE YELLOW; NITRITE,URINE NEGATIVE (NEG); PROTEIN,URINE 30 mg/dL (NEG-TRACE); UROBILINOGEN,URINE 0.2 mg/dL (0.2 mg/dL)
[2021-07-13 12:09] LABS: BACTERIA,URINE MANY /HPF (0-FEW); WBC,URINE >40 /HPF (0-4)
[2021-07-13 12:10] LABS: HYALINE CASTS, URINE OCCASIONAL /HPF
[2021-07-13] MEDS ORDERED: LIDOCAINE 1%/EPI 1:100,000 20 ML VIAL. INJ ONE (12:15)
[2021-07-13 14:06] VITALS: BP 182/85
--- NOTE | 2021-07-13 14:06 | NUR ---
Once on her feet and out of the room, patient denied having any dizziness or lightheadedness. Lucy STAPLES notified.
--- NOTE | 2021-07-13 18:32 | EKG ---
[facility] [address] [place] [address] Test Date: 2021-07-13 Test Time: 10:49:34 Pat Name: NEW GUPTA Department: Room: Gender: F Sales Service Technician: : 1930 Requested By: TATY GARAY Order Number: [id number] Reading MD: Akash Bach MD Measurements Intervals Drake Rate: 75 P: 90 CT: 164 QRS: -24 QRSD: 78 T: 26 QT: 416 QTc: 467 Interpretive Statements SINUS RHYTHM Electronically Signed On 07-14-2021 17:40:56 CDT by Akash Bach MD
--- NOTE | 2021-07-14 15:53 | NUR ---
IP: Informed pt of negative covid test. Pt verbalized understanding.
== END 2021-07-13 15:41 | disposition home or self-care (01) ==
LOC: ER 10:16
DX: S01.01XA Laceration without foreign body of scalp, initial encounter (principal); M19.90 Unspecified osteoarthritis, unspecified site; Z20.822 Contact with and (suspected) exposure to COVID-19; Z86.2 Personal history of diseases of the blood and blood-forming organs and certain disorders involving the immune mechanism; Z88.0 Allergy status to penicillin; Z88.8 Allergy status to other drugs, medicaments and biological substances; W01.0XXA Fall on same level from slipping, tripping and stumbling without subsequent striking against object, initial encounter; Y93.01 Activity, walking, marching and hiking; Y92.098 Other place in other non-institutional residence as the place of occurrence of the external cause; Y99.8 Other external cause status
CPT/HCPCS: 12004; 36415; 70450; 71045; 72125; 80048; 81001; 83735; 84484; 85025; 87086; 87426; 93005; 96360; 99285; J7030; U0003; U0005

== ENCOUNTER 2021-07-19 12:08 | Inpatient (IN) | payer MEDICARE, BC ==
[~2021-07-19] VITALS: Ht 167.6 cm; Wt 46.5 kg
[~2021-07-19 12:08] MED LIST changes: -LEVO250T7 PO; +LEVO250T8 PO; +TIZA-75 PO; -TIZA4TAB2 PO
--- NOTE | 2021-07-19 16:18 | RAD ---
EXAM: Chest, single view. HISTORY: Short of breath. Cough. COMPARISON: 07/13/2021 FINDINGS: A frontal view of the chest is obtained. There is bilateral infrahilar interstitial infiltr ate. There is no consolidation, pleural effusion or pneumothorax. There is a stable cardiac silhouett e. There are chronic appearing interstitial changes with right apical pleural parenchymal scarring. IMPRESSION: Suspected bilateral infrahilar interstitial infiltrate superimposed on chronic interstiti al changes. Electronically signed by: Stephanie Vaca MD (07/19/2021 4:16 PM) [id number]
[2021-07-19 17:08] LABS: CALCIUM 8.7 mg/dL (8.5-10.1); CREATININE 1.4 mg/dL (0.6-1.0); GFR 35.4; POTASSIUM 4.3 mmol/L (3.5-5.1)
[2021-07-19 17:14] LABS: BASO # 0.2 x10^3/uL (0.0-0.2); BASO % 1 % (0-3); EOS # 0.1 x10^3/uL (0.0-0.7); EOS % 1 % (0-3); HEMATOCRIT 30.3 % (36.0-47.0); HEMOGLOBIN 9.6 g/dL (12.0-15.5); LYMPH # 2.9 x10^3/uL (1.0-4.8); LYMPH % 16 % (24-48); MEAN CORPUSCULAR HEMOGLOBIN 29 pg (25-35); MEAN CORPUSCULAR HGB CONC 32 g/dL (31-37); MEAN CORPUSCULAR VOLUME 90 fL (79-100); MONO # 1.7 x10^3/uL (0.0-1.1); MONO % 10 % (0-9); NEUT # 12.6 x10^3/uL (1.8-7.7); NEUT % 72 % (31-73); PLATELET COUNT 329 x10^3/uL (140-400); RED BLOOD COUNT 3.36 x10^6/uL (3.50-5.40); RED CELL DISTRIBUTION WIDTH 15.8 % (11.5-14.5); WHITE BLOOD COUNT 17.6 x10^3/uL (4.0-11.0)
[2021-07-19 17:15] LABS: ALBUMIN 2.9 g/dL (3.4-5.0); ALBUMIN/GLOBULIN RATIO 0.7 (1.0-1.7); TOTAL BILIRUBIN 0.2 mg/dL (0.2-1.0); TOTAL PROTEIN 6.8 g/dL (6.4-8.2)
[2021-07-19 17:22] LABS: CREATINE KINASE 57 U/L (26-192)
[2021-07-19 17:24] LABS: BILIRUBIN,URINE NEGATIVE (NEG); CLARITY,URINE CLOUDY; COLOR,URINE YELLOW; NITRITE,URINE POSITIVE (NEG); PROTEIN,URINE 30 mg/dL (NEG-TRACE); UROBILINOGEN,URINE 0.2 mg/dL (0.2 mg/dL)
[2021-07-19 17:33] LABS: BACTERIA,URINE MODERATE /HPF (0-FEW); HYALINE CASTS, URINE FEW /HPF; WBC,URINE >40 /HPF (0-4)
[2021-07-19 17:38] LABS: RBC,URINE 0 /HPF (0-2)
--- NOTE | 2021-07-19 17:39 | PHYS DOC ---
Past Medical History Past Medical History: Anemia, Arthritis, Cancer, Diverticulitis, Renal Disease, Other Additional Past Medical Histor: PT states it's all in the computer, not sure Past Surgical History: No Surgical History Additional Past Surgical Histo: unable to obtain Smoking Status: Never Smoker Alcohol Use: None Drug Use: None General Adult EDM: Chief Complaint: HYPOTENSION HPI: HPI: Patient is a 89-year-old female presents to the emergency department stating her home health nurse thought she might have pneumonia again, had a unknown level low blood pressure at home, patient reports a cough for the past 8 days with chest congestion, denies recent fever or chills, denies chest pains or shortness of breath. Patient reports she was here on the and had a scalp repair from a trip and fall. Patient denies any further problems with her scalp laceration. Patient denies abdominal pains, nausea, vomiting. Denies other physical compl aints or physical concerns. Review of Systems: Review of Systems: 14 body systems of review of systems have been reviewed. See HPI for pertinent positives and negative responses, otherwise all other systems are negative, nonpertinent or noncontributory. Constitutional: Negative except as outlined in HPI above. Skin: Negative except as outlined in HPI above. Eyes: Negative except as outlined in HPI above. HENT: Negative except as outlined in HPI above. Respiratory: Negative except as outlined in HPI above. Cardiovascular: Negative except as outlined in HPI above. GI: Negative except as outlined in HPI above. : Negative except as outlined in HPI above. Musculoskeletal: Negative except as outlined in HPI above. Integument: Negative except as outlined in HPI above. Neurologic: Negative except as outlined in HPI above. Endocrine: Negative except as outlined in HPI above. Lymphatic: Negative except as outlined in HPI above. Psychiatric: Negative except as outlined in HPI above. Heart Score: C/O Chest Pain: No Risk Factors: Risk Factors: DM, Current or recent (<one month) smoker, HTN, HLP, family history of CAD, obesity. Risk Scores: Score 0 - 3: 2.5% MACE over next 6 weeks - Discharge Home Score 4 - 6: 20.3% MACE over next 6 weeks - Admit for Clinical Observation Score 7 - 10: 72.7% MACE over next 6 weeks - Early Invasive Strategies Allergies: Allergies: Allergies Coded Allergies Type Severity Reaction Last Updated Verified Penicillins Allergy Intermediate Hives 07/19/21 Yes meperidine Allergy Intermediate HAS TOLERATED FENTANYL 07/19/21 Yes morphine Adverse Reaction Intermediate PT STATED MORPHINE ALLERGIE, BUT STATES IT JUST "UPSETS" HER 07/19/21 Yes Physical Exam: PE: Constitutional: Well developed, well nourished, no acute distress, non-toxic appearance. 89-year-old female in no apparent distress. HENT: Normocephalic, atraumatic. Eyes: Conjunctiva normal, no discharge. Neck: Normal range of motion, no stridor. Cardiovascular: No cyanosis appreciated, distal cap refill less than 2 seconds. Lungs & Thorax: Patient is in no respiratory distress, no audible adventitious lung sounds appreciated. Normal work of breathing, coarse lung sounds bilateral upper lobes, diminished lung sounds bilateral lower lobes. The patient is 97% on room air. Abdomen: Nontender, no abnormalities noted. Skin: Warm, dry, no erythema, no rash. Back: No tenderness, no deformities. Extremities: No tenderness, no cyanosis, no clubbing, ROM intact, no edema. Neurologic: Alert and oriented X 3, normal motor function, normal sensory function, no focal deficits noted. Psychologic: Affect normal, judgement normal, mood normal. Current Patient Data: Labs: Laboratory Tests Test 07/19/21 16:40 White Blood Count 17.6 x10^3/uL (4.0-11.0) H Red Blood Count 3.36 x10^6/uL (3.50-5.40) L Hemoglobin 9.6 g/dL (12.0-15.5) L Hematocrit 30.3 % (36.0-47.0) L Mean Corpuscular Volume 90 fL (79-100) Mean Corpuscular Hemoglobin 29 pg (25-35) Mean Corpuscular Hemoglobin Concent 32 g/dL (31-37) Red Cell Distribution Width 15.8 % (11.5-14.5) H Platelet Count 329 x10^3/uL (140-400) Neutrophils (%) (Auto) 72 % (31-73) Lymphocytes (%) (Auto) 16 % (24-48) L Monocytes (%) (Auto) 10 % (0-9) H Eosinophils (%) (Auto) 1 % (0-3) Basophils (%) (Auto) 1 % (0-3) Neutrophils # (Auto) 12.6 x10^3/uL (1.8-7.7) H Lymphocytes # (Auto) 2.9 x10^3/uL (1.0-4.8) Monocytes # (Auto) 1.7 x10^3/uL (0.0-1.1) H Eosinophils # (Auto) 0.1 x10^3/uL (0.0-0.7) Basophils # (Auto) 0.2 x10^3/uL (0.0-0.2) Platelet Estimate Pending Sodium Level 139 mmol/L (136-145) Potassium Level 4.3 mmol/L (3.5-5.1) Chloride Level 106 mmol/L (98-107) Carbon Dioxide Level 19 mmol/L (21-32) L Anion Gap 14 (6-14) Blood Urea Nitrogen 25 mg/dL (7-20) H Creatinine 1.4 mg/dL (0.6-1.0) H Estimated GFR (Cockcroft-Gault) 35.4 BUN/Creatinine Ratio 18 (6-20) Glucose Level 93 mg/dL (70-99) Calcium Level 8.7 mg/dL (8.5-10.1) Total Bilirubin 0.2 mg/dL (0.2-1.0) Aspartate Amino Transferase (AST) 48 U/L (15-37) H Alanine Aminotransferase (ALT) 59 U/L (14-59) Alkaline Phosphatase 236 U/L (46-116) H Creatine Kinase 57 U/L (26-192) Creatine Kinase MB (Mass) 1.3 ng/mL (0.0-3.6) Creatine Kinase MB Relative Index % (0-4) Troponin I Quantitative < 0.017 ng/mL (0.000-0.055) LU-Hoh-Z-Type Natriuretic Peptide 927 pg/mL (0-449) H Total Protein 6.8 g/dL (6.4-8.2) Albumin 2.9 g/dL (3.4-5.0) L Albumin/Globulin Ratio 0.7 (1.0-1.7) L Laboratory Tests 07/19/21 16:40 Laboratory Tests 07/19/21 16:40 Vital Signs: Vital Signs Date Time Temp Pulse Resp B/P (MAP) Pulse Ox O2 Delivery O2 Flow Rate FiO2 07/19/21 17:08 108 24 173/79 (110) 97 07/19/21 13:26 97.6 Room Air 97.6 EKG: EKG: EKG performed at 1625 by ED nursing staff shows a sinus rhythm with an occasional PAC otherwise no other ectopy appreciated, heart rate 95 bpm, DC interval 0.12, QTc interval 0.466, no acute STEMI, no ACS, no acute ischemia appreciated, EKG interpreted by ED attending physician Dr. Duarte. Radiology/Procedures: Radiology/Procedures: PATIENT: NEW GUPTA HACCOUNT: [id number] : 1930 LOCATION: ER AGE: 89 SEX: F EXAM STATUS: REG ER ORD. PHYSICIAN: SUNI CEBALLOS APRN REASON: Short of breath with cough PROCEDURE: CHEST AP ONLY EXAM: Chest, single view. HISTORY: Short of breath. Cough. COMPARISON: 07/13/2021 FINDINGS: A frontal view of the chest is obtained. There is bilateral infrahilar interstitial infiltrate. There is no consolidation, pleural effusion or pneumothorax. There is a stable cardiac silhouette. There are chronic appearing interstitial changes with right apical pleural parenchymal scarring. IMPRESSION: Suspected bilateral infrahilar interstitial infiltrate superimposed on chronic interstitial changes. Electronically signed by: Stephanie Vaca MD (07/19/2021 4:16 PM) [id number] Course & Med Decision Making: Course & Med Decision Making Pertinent Labs and Imaging studies reviewed. (See chart for details) 89-year-old female, vital signs reviewed, resents emerged department concerning cough for the past 8 days. Physical examination concerning for pneumonia, will order rapid Covid testing, CBC, CMP, cardiac enzymes, EKG, urinalysis assay. EKG not concerning for cardiac process, cardiac enzymes negative, chest x-ray concerning for bilateral pneumonia, the patient's urine is infected. Discussed with patient findings, recommendation of admission for community-acquired pneumonia, abnormal urinalysis, patient is amenable to ED planning. Called and discussed patient case and ED work-up with inpatient management physician Dr. Tucker who agrees patient case warrants admission to the hospital, will start on monotherapy antibiotic Levaquin per pharmacy for CAP and abnormal urinalysis results. Will place patient on telemetry unit. Patient is awaiting hospital assignment bed from [employer]. Shilpi Disclaimer: Shilpi Disclaimer: This electronic medical record was generated, in whole or in part, using a voice recognition dictation system. Departure Departure Impression: Primary Impression: Community acquired pneumonia Qualified Codes: J18.9 - Pneumonia, unspecified organism Additional Impression: Abnormal urinalysis Disposition: ADMITTED INPATIENT Admitting Physician: AKHIL (Admit to Dr. Tucker to telemetry unit.) Referrals: OREN ARCEO MD (PCP) SUNI CEBALLOS CLOTH DESIGNER Jul 19, 2021 17:39
[2021-07-19 17:56] LABS: % BANDS 2 % (0-9); % BASOS 1 % (0-3); % EOS 2 % (0-5); % LYMPHS 27 % (24-48); % MONOS 9 % (0-10); % MYELOS 3 % (0-0); % SEGS 56 % (35-66)
[2021-07-19 17:58] LABS: PLATELET CLUMP PRESENT; PLT ESTIMATE ADEQUATE (ADEQUATE); POLYCHROMASIA PRESENT
[2021-07-19 17:59] LABS: BURR CELLS OCC; OVALOCYTES FEW; POIKILOCYTOSIS SLIGHT
[2021-07-19 18:01] LABS: SPHEROCYTES OCC; TEAR DROP CELLS OCC
--- NOTE | 2021-07-19 18:52 | PDOC1 ---
History and Physical Date of Admission Date of Admission DATE: 07/19/21 TIME: 18:51 Identification/Chief Complaint Chief Complaint Cough Source Source: Caregiver, Patient History of Present Illness History of Present Illness Ms Castro is an 88yo F w/ PMHx Migraines, HLD, RA, anemia of chronic disease, colon CA s/p 3x colon resection who is brought to ED via her daughter due to progressive shortness of breath and cough at home. She notes worsening of her cough 5 days ago, but notes she has had a cough for about 8 days and she was seen in ED 6 days prior to her visit for a fall with scalp laceration approximated well with mckenzie and had a slight cough at that time, it has worsened since then. Cough is productive of thick rodgers sputum. She has had subjective fever and chills. She has chronic diarrhea which has been stable, no nausea and vomiting. Her daughter was told by her home health nurse that she had abnormal breath sounds and a low blood pressure at home. Patient denies abdominal pains, nausea, vomiting, no chest pain. No recent changes in home medications, she and her daughter do not recall if/when she has her methotrexate or if she still gets it, daughter notes she has her own health problems and she has moved in with her mother to help each other. Chest radiograph with bilateral infrahilar interstitial infiltrates and possible chronic interstitial changes. EKG sinus rhythm, rate of 96bpm with PACs, NM 0.12, QTc 466, no ST elevations or TWI. Labs with WBC 17.6, Hb 9.6, platelets 329, Na 139, K 4.3, BUN 25, Cr 1.4, glucose 93, Ca 8.7, bili 0.2, AST 48, ALT 59, Alk phos 236, NT-Pro-BNP 927, trop 0, Albumin 2.9, lactic acid 0.7, and UA with positive leukocyte esterase and positive nitrites Started on empiric levaquin and Admitted for further care. Past Medical History Cardiovascular: Hyperlipidemia Pulmonary: No pertinent hx CENTRAL NERVOUS SYSTEM: Other GI: Diverticulosis Heme/Onc: Anemia NOS, Cancer Hepatobiliary: No pertinent hx Psych: No pertinent hx Musculoskeletal: Osteoarthritis Rheumatologic: Rheumatoid arthritis Infectious disease: No pertinent hx Renal/: No pertinent hx Endocrine: Hypothyroidism Past Surgical History Past Surgical History: Appendectomy, Cholecystectomy, Tonsillectomy, Hysterectomy, Colon Resection Family History Family History: Hypertension, Family History Unknown Social History Smoke: No ALCOHOL: none Drugs: None Current Medications Current Medications Active Scripts Active Doxycycline Hyclate 100 Mg Tablet 1 Tab PO BID 5 Days Reported Gabapentin (Gabapentin) 100 Mg Capsule 100 Mg PO BID Cymbalta (Duloxetine Hcl) 30 Mg Capsule.dr 1 Cap PO DAILY Lovastatin 40 Mg Tablet 40 Mg PO HS Tizanidine Hcl 4 Mg Tablet 4 Mg PO DAILY Levothyroxine Sodium 100 Mcg Tablet 100 Mcg PO DAILY Folic Acid 1 Mg Tablet 1 Mg PO DAILY Allergies Allergies: Coded Allergies: Penicillins (Verified Allergy, Intermediate, Hives, 07/19/21) Has tolerated amoxicillin meperidine (Verified Allergy, Intermediate, HAS TOLERATED FENTANYL, 07/19/21) morphine (Verified Adverse Reaction, Intermediate, PT STATED MORPHINE ALLERGIE, BUT STATES IT JUST "UPSETS" HER, 07/19/21) ROS General: YES: Chills, Night Sweats, Fatigue, Malaise, Appetite; No: Other PSYCHOLOGICAL ROS: YES: Anxiety; No: Behavioral Disorder, Concentration difficultie, Decreased libido, Depression, Disorientation, Hallucinations, Hostility, Irritablity, Memory difficulties, Mood Swings, Obsessive thoughts, Physical abuse, Sexual abuse, Sleep disturbances, Suicidal ideation, Other Eyes: No Blurry vision, No Decreased vision, No Double vision, No Dry eyes, No Excessive tearing, No Eye Pain, No Itchy Eyes, No Loss of vision, No Photophobia, No Scotomata, No Uses contacts, No Uses glasses, No Other HEENT: YES: Heacaches; No: Visual Changes, Hearing change, Nasal congestion, Nasal discharge, Oral lesions, Sinus pain, Sore Throat, Epistaxis, Sneezing, Snoring, Tinnitus, Vertig o, Vocal changes, Other ALLERGY AND IMMUNOLOGY: No: Hives, Insect Bite Sensitivity, Itchy/Watery Eyes, Nasal Congestion, Post Nasal Drip, Seasonal Allergies, Other Hematological and Lymphatic: No: Bleeding Problems, Blood Clots, Blood Transfusions, Brusing, Night Sweats, Pallor, Swollen Lymph Nodes, Other ENDOCRINE: No: Breast Changes, Galactorrhea, Hair Pattern Changes, Hot Flashes, Malaise/lethargy, Mood Swings, Palpitations, Polydipsia/polyuria, Skin Changes, Temperature Intolerance, Unexpected Weight Changes, Other Breast: No New/Changing Breast Lumps, No Nipple changes, No Nipple discharge, No Other Respiratory: YES: Cough, Shortness of breath, SOB with excertion, Tachypnea, Wh eezing; No: Hemoptysis, Orthopnea, Pleuritic Pain, Sputum Changes, Stridor, Other Cardiovascular: No Chest Pain, No Palpitations, No Orthopnea, No Paroxysmal Noc. Dyspnea, No Edema, No Lt Headedness, No Other Gastrointestinal: Yes Diarrhea; No Nausea, No Vomiting, No Abdominal Pain, No Constipation, No Melena, No Hematochezia, No Other Genitourinary: No Dysuria, No Frequency, No Incontinence, No Hematuria, No Retention, No Discharge, No Urgency, No Pain, No Flank Pain, No Other, No , No , No , No , No , No , No Musculoskeletal: No Gait Disturbance, No Joint Pain, No Joint Stiffness, No Joint Swelling, No Muscle Pain, No Muscular Weakness, No Pain In:, No Swelling In:, No Other Neurological: No Behavorial Changes, No Bowel/Bladder ControlChng, No Confusion, No Dizziness, No Gait Disturbance, No Headaches, No Impaired Coord/balance, No Memory Loss, No Numbness/Tingling, No Seizures, No Speech Problems, No Tremors, No Visual Changes, No Weakness, No Other Skin: No Dry Skin, No Eczema, No Hair Changes, No Lumps, No Mole Changes, No Mottling, No Nail Changes, No Pruritus, No Rash, No Skin Lesion Changes, No Other, No Acne Physical Exam General: Alert, Oriented X3, Cooperative, moderate distress HEENT: PERRLA, EOMI, Mucous membr. moist/pink, Other (Occipital scalp mckenzie (9) in place) Lungs: Other (Bilateral crackles) Heart: S1S2, RRR, no thrills, no rubs, no gallops, no murmurs Abdomen: Normal bowel sounds, Soft, No tenderness, No hepatosplenomegaly, No masses Rectal Exam: not examined Extremities: No clubbing, No cyanosis, No edema, Normal pulses, No tenderness/s welling Skin: No rashes, No breakdown, No significant lesion Neuro: Normal gait, Normal speech, Strength at 5/5 X4 ext, Normal tone, Sensation intact, Cranial nerves 3-12 NL, Reflexes 2+ Psych/Mental Status: Mental status NL, Mood NL Vitals Vitals Vital Signs Date Time Temp Pulse Resp B/P (MAP) Pulse Ox O2 Delivery O2 Flow Rate FiO2 07/19/21 17:08 108 24 173/79 (110) 97 07/19/21 13:26 97.6 Room Air 97.6 Labs Labs Laboratory Tests Test 07/19/21 16:40 07/19/21 17:06 07/19/21 17:40 White Blood Count 17.6 x10^3/uL (4.0-11.0) Red Blood Count 3.36 x10^6/uL (3.50-5.40) Hemoglobin 9.6 g/dL (12.0-15.5) Hematocrit 30.3 % (36.0-47.0) Mean Corpuscular Volume 90 fL (79-100) Mean Corpuscular Hemoglobin 29 pg (25-35) Mean Corpuscular Hemoglobin Concent 32 g/dL (31-37) Red Cell Distribution Width 15.8 % (11.5-14.5) Platelet Count 329 x10^3/uL (140-400) Neutrophils (%) (Auto) 72 % (31-73) Lymphocytes (%) (Auto) 16 % (24-48) Monocytes (%) (Auto) 10 % (0-9) Eosinophils (%) (Auto) 1 % (0-3) Basophils (%) (Auto) 1 % (0-3) Neutrophils # (Auto) 12.6 x10^3/uL (1.8-7.7) Lymphocytes # (Auto) 2.9 x10^3/uL (1.0-4.8) Monocytes # (Auto) 1.7 x10^3/uL (0.0-1.1) Eosinophils # (Auto) 0.1 x10^3/uL (0.0-0.7) Basophils # (Auto) 0.2 x10^3/uL (0.0-0.2) Segmented Neutrophils % 56 % (35-66) Band Neutrophils % 2 % (0-9) Lymphocytes % 27 % (24-48) Monocytes % 9 % (0-10) Eosinophils % 2 % (0-5) Basophils % 1 % (0-3) Myelocytes % 3 % (0-0) Platelet Estimate Adequate (ADEQUATE) Platelet Clumps, EDTA Present Large Platelets Present Polychromasia Present Poikilocytosis Slight Basophilic Stippling Present Anisocytosis Spherocytes Occ Tear Drop Cells Occ Ovalocytes Few [place] Cells Occ Sodium Level 139 mmol/L (136-145) Potassium Level 4.3 mmol/L (3.5-5.1) Chloride Level 106 mmol/L (98-107) Carbon Dioxide Level 19 mmol/L (21-32) Anion Gap 14 (6-14) Blood Urea Nitrogen 25 mg/dL (7-20) Creatinine 1.4 mg/dL (0.6-1.0) Estimated GFR (Cockcroft-Gault) 35.4 BUN/Creatinine Ratio 18 (6-20) Glucose Level 93 mg/dL (70-99) Lactic Acid Level 0.7 mmol/L (0.4-2.0) Calcium Level 8.7 mg/dL (8.5-10.1) Total Bilirubin 0.2 mg/dL (0.2-1.0) Aspartate Amino Transf (AST/SGOT) 48 U/L (15-37) Alanine Aminotransferase (ALT/SGPT) 59 U/L (14-59) Alkaline Phosphatase 236 U/L (46-116) Creatine Kinase 57 U/L (26-192) Creatine Kinase MB (Mass) 1.3 ng/mL (0.0-3.6) Creatine Kinase MB Relative Index % (0-4) Troponin I Quantitative < 0.017 ng/mL (0.000-0.055) XP-Hml-A-Type Natriuretic Peptide 927 pg/mL (0-449) Total Protein 6.8 g/dL (6.4-8.2) Albumin 2.9 g/dL (3.4-5.0) Albumin/Globulin Ratio 0.7 (1.0-1.7) Urine Collection Type Unknown Urine Color Yellow Urine Clarity Cloudy Urine pH 7.0 (<5.0-8.0) Urine Specific Dalton 1.015 (1.000-1.030) Urine Protein 30 mg/dL (NEG-TRACE) Urine Glucose (UA) Negative mg/dL (NEG) Urine Ketones (Stick) Negative mg/dL (NEG) Urine Blood Small (NEG) Urine Nitrite Positive (NEG) Urine Bilirubin Negative (NEG) Urine Urobilinogen Dipstick 0.2 mg/dL (0.2 mg/dL) Urine Leukocyte Esterase Large (NEG) Urine RBC 0 /HPF (0-2) Urine WBC >40 /HPF (0-4) Urine Squamous Epithelial Cells Few /LPF Urine Bacteria Moderate /HPF (0-FEW) Urine Hyaline Casts Few /HPF Urine Mucus Slight /LPF SARS-CoV-2 Antigen (Rapid) Negative (NEGATIVE) Laboratory Tests Test 07/19/21 16:40 07/19/21 17:06 07/19/21 17:40 White Blood Count 17.6 x10^3/uL (4.0-11.0) Red Blood Count 3.36 x10^6/uL (3.50-5.40) Hemoglobin 9.6 g/dL (12.0-15.5) Hematocrit 30.3 % (36.0-47.0) Mean Corpuscular Volume 90 fL (79-100) Mean Corpuscular Hemoglobin 29 pg (25-35) Mean Corpuscular Hemoglobin Concent 32 g/dL (31-37) Red Cell Distribution Width 15.8 % (11.5-14.5) Platelet Count 329 x10^3/uL (140-400) Neutrophils (%) (Auto) 72 % (31-73) Lymphocytes (%) (Auto) 16 % (24-48) Monocytes (%) (Auto) 10 % (0-9) Eosinophils (%) (Auto) 1 % (0-3) Basophils (%) (Auto) 1 % (0-3) Neutrophils # (Auto) 12.6 x10^3/uL (1.8-7.7) Lymphocytes # (Auto) 2.9 x10^3/uL (1.0-4.8) Monocytes # (Auto) 1.7 x10^3/uL (0.0-1.1) Eosinophils # (Auto) 0.1 x10^3/uL (0.0-0.7) Basophils # (Auto) 0.2 x10^3/uL (0.0-0.2) Segmented Neutrophils % 56 % (35-66) Band Neutrophils % 2 % (0-9) Lymphocytes % 27 % (24-48) Monocytes % 9 % (0-10) Eosinophils % 2 % (0-5) Basophils % 1 % (0-3) Myelocytes % 3 % (0-0) Platelet Estimate Adequate (ADEQUATE) Platelet Clumps, EDTA Present Large Platelets Present Polychromasia Present Poikilocytosis Slight Basophilic Stippling Present Anisocytosis Spherocytes Occ Tear Drop Cells Occ Ovalocytes Few [place] Cells Occ Sodium Level 139 mmol/L (136-145) Potassium Level 4.3 mmol/L (3.5-5.1) Chloride Level 106 mmol/L (98-107) Carbon Dioxide Level 19 mmol/L (21-32) Anion Gap 14 (6-14) Blood Urea Nitrogen 25 mg/dL (7-20) Creatinine 1.4 mg/dL (0.6-1.0) Estimated GFR (Cockcroft-Gault) 35.4 BUN/Creatinine Ratio 18 (6-20) Glucose Level 93 mg/dL (70-99) Lactic Acid Level 0.7 mmol/L (0.4-2.0) Calcium Level 8.7 mg/dL (8.5-10.1) Total Bilirubin 0.2 mg/dL (0.2-1.0) Aspartate Amino Transf (AST/SGOT) 48 U/L (15-37) Alanine Aminotransferase (ALT/SGPT) 59 U/L (14-59) Alkaline Phosphatase 236 U/L (46-116) Creatine Kinase 57 U/L (26-192) Creatine Kinase MB (Mass) 1.3 ng/mL (0.0-3.6) Creatine Kinase MB Relative Index % (0-4) Troponin I Quantitative < 0.017 ng/mL (0.000-0.055) TH-Plp-L-Type Natriuretic Peptide 927 pg/mL (0-449) Total Protein 6.8 g/dL (6.4-8.2) Albumin 2.9 g/dL (3.4-5.0) Albumin/Globulin Ratio 0.7 (1.0-1.7) Urine Collection Type Unknown Urine Color Yellow Urine Clarity Cloudy Urine pH 7.0 (<5.0-8.0) Urine Specific [place] 1.015 (1.000-1.030) Urine Protein 30 mg/dL (NEG-TRACE) Urine Glucose (UA) Negative mg/dL (NEG) Urine Ketones (Stick) Negative mg/dL (NEG) Urine Blood Small (NEG) Urine Nitrite Positive (NEG) Urine Bilirubin Negative (NEG) Urine Urobilinogen Dipstick 0.2 mg/dL (0.2 mg/dL) Urine Leukocyte Esterase Large (NEG) Urine RBC 0 /HPF (0-2) Urine WBC >40 /HPF (0-4) Urine Squamous Epithelial Cells Few /LPF Urine Bacteria Moderate /HPF (0-FEW) Urine Hyaline Casts Few /HPF Urine Mucus Slight /LPF SARS-CoV-2 Antigen (Rapid) Negative (NEGATIVE) Images Images Chest radiograph: A frontal view of the chest is obtained. There is bilateral infrahilar interstitial infiltrate. There is no consolidation, pleural effusion or pneumothorax. There is a stable cardiac silhouette. There are chronic appearing interstitial changes with right apical pleural parenchymal scarring. IMPRESSION: Suspected bilateral infrahilar interstitial infiltrate superimposed on chronic interstitial changes. VTE Prophylaxis Ordered VTE Prophylaxis Devices: Yes VTE Pharmacological Prophylaxi: Yes Assessment/Plan Assessment/Plan A/P: Cough - with Shortness of breath - interstitial changes. This is likely gram negative pneumonia given her history of RA on methotrexate is high risk for structural lung disease infections Will place on empiric levaquin. If she worsens would add cefepime. Pulm consult for possible ILD as well Community acquire pneumonia - with Abnormal chest radiograph - pneumonia Likely gram-negative pneumonia Sepsis - due to pneumonia and likely UTI as well. Empiric levaquin coverage, fluids given Frequent falls with Progressive weakness and debility - Unable to walk well cu rrently. PT/OT PACs - will monitor, not in atrial arrhythmia CKD - previously with abnormal renal function, this is likely her new baseline Diarrhea - likely malabsorption related to prior bowel resection. Will check c. difficile given the volume and frequency Transaminitis - likely RA related Migraines - previously on topiramate, sees neuro outpatient, discussed holding topiramate. Can use low dose compazine for breakthrough headaches HLD - on statin RA - on weekly MTX, will hold. Anemia of chronic disease - likely 2/2 above RA H/o colon CA s/p 3x colon resection - with multiple other abdominal surgeries FEN - Cardiac diet PPX - heparin CODE - DNR/DNI Dispo - inpatient med monitor Justifications for Admission Other Justification CRISTINA ALLEN MD Jul 19, 2021 18:52
[2021-07-19] MEDS ORDERED: levOFLOXacin PER PHARMACY. MC PRN (19:00)
[2021-07-19] MEDS ORDERED: ONDANSETRON PF 4 MG/2 ML VIAL. IVP PRN (19:15)
[2021-07-19] MEDS ORDERED: ACETAMINOPHEN 325 MG TABLET. PO PRN (19:15)
[2021-07-19] MEDS ORDERED: traMADol 50 MG TABLET PO PRN (19:15)
[2021-07-19] MEDS ORDERED: guaiFENesin DM 200MG/20MG 10 ML SYRUP PO PRN (19:15)
[2021-07-19] MEDS: BENZONATATE 100 MG CAPSULE. PO SCH (21:39)
[2021-07-19] MEDS: PSYLLIUM HUSK (SUGAR FREE) 1 PKT PACKET PO SCH (21:39)
[2021-07-19] MEDS ORDERED: hydrALAZINE 20 MG/ML VIAL. IVP PRN (21:45)
[2021-07-19] MEDS: HEPARIN for SUB-Q USE 5,000 UNIT/ML VIAL. SQ SCH (23:07)
[2021-07-19] MEDS: GABAPENTIN 100 MG CAPSULE. PO SCH (23:15)
[2021-07-19] MEDS: ATORVASTATIN CALCIUM 10 MG TABLET. PO SCH (23:15)
[2021-07-19 23:45] VITALS: BP 164/71
[2021-07-20] VITALS (7 sets, daily range): BP systolic 129–174; BP diastolic 47–84
--- NOTE | 2021-07-20 04:32 | EKG ---
[facility] [address] [place] [address] Test Date: 2021-07-19 Test Time: 16:25:45 Pat Name: ENW GUPTA Department: Room: [facility] Gender: F Chemical Packager: : [id number] Requested By: SUNI CEBALLOS Order Number: [id number] Reading MD: Tj Maldonado Measurements Intervals [place] Rate: 95 P: AL: QRS: 13 QRSD: 84 T: 47 QT: 352 QTc: 446 Interpretive Statements SINUS ARRHYTHMIA Electronically Signed On 07-21-2021 16:05:06 CDT by Tj Maldonado
[2021-07-20] MEDS: LEVOTHYROXINE 100 MCG TABLET PO SCH (05:42)
[2021-07-20] MEDS: HEPARIN for SUB-Q USE 5,000 UNIT/ML VIAL. SQ SCH ×3 (05:43→21:08)
--- NOTE | 2021-07-20 07:12 | PDOC ---
[employer] PROGRESS NOTE Date of Service DOS: DATE: 07/20/21 TIME: 07:07 Chief Complaint Chief Complaint A/P: Cough - with Shortness of breath - interstitial changes. This is likely gram negative pneumonia given her history of RA on methotrexate is high risk for structural lung disease infections Will place on empiric levaquin. If she worsens would add cefepime. Pulm consult for possible ILD as well Community acquire pneumonia - with Abnormal chest radiograph - pneumonia Likely gram-negative pneumonia Sepsis - due to pneumonia and likely UTI as well. Empiric levaquin coverage, fluids given Frequent falls with Progressive weakness and debility - Unable to walk well currently. PT/OT PACs - will monitor, not in atrial arrhythmia Mild SHOAIB on CKD - previously with abnormal renal function, this is likely her new baseline around 1.2, did improve from 1.4 on admit Diarrhea - likely malabsorption related to prior bowel resection. Will check c. difficile given the volume and frequency Transaminitis - likely RA related Migraines - previously on topiramate, sees neuro outpatient, discussed holding topiramate. Can use low dose compazine for breakthrough headaches HLD - on statin RA - on weekly MTX, will hold. Anemia of chronic disease - likely 2/2 above RA H/o colon CA s/p 3x colon resection - with multiple other abdominal surgeries Severe protein calorie malnutrition - him assistant advice appreciated FEN - Cardiac diet PPX - heparin CODE - DNR/DNI Dispo - inpatient med monitor History of Present Illness History of Present Illness Ms Castro is an 88yo F w/ PMHx Migraines, HLD, RA, anemia of chronic disease, colon CA s/p 3x colon resection who is brought to ED via her daughter due to progressive shortness of breath and cough at home. She notes worsening of her cough 5 days ago, but notes she has had a cough for about 8 days and she was seen in ED 6 days prior to her visit for a fall with scalp laceration approxima sammie well with mckenzie and had a slight cough at that time, it has worsened since then. Cough is productive of thick rodgers sputum. She has had subjective fever and chills. She has chronic diarrhea which has been stable, no nausea and vomiting. Her daughter was told by her home health nurse that she had abnormal breath sounds and a low blood pressure at home. Patient denies abdominal pains, nausea, vomiting, no chest pain. No recent changes in home medications, she and her daughter do not recall if/when she has her methotrexate or if she still gets it, daughter notes she has her own health problems and she has moved in with her mother to help each other. Chest radiograph with bilateral infrahilar interstitial infiltrates and possible chronic interstitial changes. EKG sinus rhythm, rate of 96bpm with PACs, TN 0.12, QTc 466, no ST elevations or TWI. Labs with WBC 17.6, Hb 9.6, platelets 329, Na 139, K 4.3, BUN 25, Cr 1.4, glucose 93, Ca 8.7, bili 0.2, AST 48, ALT 59, Alk phos 236, NT-Pro-BNP 927, trop 0, Albumin 2.9, lactic acid 0.7, and UA with positive leukocyte esterase and positive nitrites Started on empiric levaquin and Admitted for further care. Afebrile overnight. Cough improved slightly. COVID-19 returned negative. Not hypoxic. Some pain on urination. She is able to increase free water intake. No chest pain but still very short of breath and weak Vitals/I&O Vitals/I&O: Vital Signs Date Time Temp Pulse Resp B/P (MAP) Pulse Ox O2 Delivery O2 Flow Rate FiO2 07/20/21 03:45 97.9 121 18 129/71 (90) 96 Room Air 97.9 07/19/21 19:45 96.0 I & O 07/19/21 07/19/21 07/20/21 15:00 23:00 07:00 Intake Total 270 ml Output Total 400 ml Balance -130 ml Physical Exam General: Alert, Oriented X3, Cooperative, moderate distress Lungs: Clear, Other Abdomen: Normal bowel sounds, Soft, No tenderness, No hepatosplenomegaly, No masses Extremities: No clubbing, No cyanosis, No edema, Normal pulses, No tenderness/swelling Skin: No rashes, No breakdown, No significant lesion Labs Labs: Laboratory Tests Test 07/19/21 16:40 07/19/21 17:06 07/19/21 17:40 White Blood Count 17.6 x10^3/uL (4.0-11.0) Red Blood Count 3.36 x10^6/uL (3.50-5.40) Hemoglobin 9.6 g/dL (12.0-15.5) Hematocrit 30.3 % (36.0-47.0) Mean Corpuscular Volume 90 fL (79-100) Mean Corpuscular Hemoglobin 29 pg (25-35) Mean Corpuscular Hemoglobin Concent 32 g/dL (31-37) Red Cell Distribution Width 15.8 % (11.5-14.5) Platelet Count 329 x10^3/uL (140-400) Neutrophils (%) (Auto) 72 % (31-73) Lymphocytes (%) (Auto) 16 % (24-48) Monocytes (%) (Auto) 10 % (0-9) Eosinophils (%) (Auto) 1 % (0-3) Basophils (%) (Auto) 1 % (0-3) Neutrophils # (Auto) 12.6 x10^3/uL (1.8-7.7) Lymphocytes # (Auto) 2.9 x10^3/uL (1.0-4.8) Monocytes # (Auto) 1.7 x10^3/uL (0.0-1.1) Eosinophils # (Auto) 0.1 x10^3/uL (0.0-0.7) Basophils # (Auto) 0.2 x10^3/uL (0.0-0.2) Segmented Neutrophils % 56 % (35-66) Band Neutrophils % 2 % (0-9) Lymphocytes % 27 % (24-48) Monocytes % 9 % (0-10) Eosinophils % 2 % (0-5) Basophils % 1 % (0-3) Myelocytes % 3 % (0-0) Platelet Estimate Adequate (ADEQUATE) Platelet Clumps, EDTA Present Large Platelets Present Polychromasia Present Poikilocytosis Slight Basophilic Stippling Present Anisocytosis Spherocytes Occ Tear Drop Cells Occ Ovalocytes Few Sabina Cells Occ Sodium Level 139 mmol/L (136-145) Potassium Level 4.3 mmol/L (3.5-5.1) Chloride Level 106 mmol/L (98-107) Carbon Dioxide Level 19 mmol/L (21-32) Anion Gap 14 (6-14) Blood Urea Nitrogen 25 mg/dL (7-20) Creatinine 1.4 mg/dL (0.6-1.0) Estimated GFR (Cockcroft-Gault) 35.4 BUN/Creatinine Ratio 18 (6-20) Glucose Level 93 mg/dL (70-99) Lactic Acid Level 0.7 mmol/L (0.4-2.0) Calcium Level 8.7 mg/dL (8.5-10.1) Total Bilirubin 0.2 mg/dL (0.2-1.0) Aspartate Amino Transf (AST/SGOT) 48 U/L (15-37) Alanine Aminotransferase (ALT/SGPT) 59 U/L (14-59) Alkaline Phosphatase 236 U/L (46-116) Creatine Kinase 57 U/L (26-192) Creatine Kinase MB (Mass) 1.3 ng/mL (0.0-3.6) Creatine Kinase MB Relative Index % (0-4) Troponin I Quantitative < 0.017 ng/mL (0.000-0.055) OA-Cxv-O-Type Natriuretic Peptide 927 pg/mL (0-449) Total Protein 6.8 g/dL (6.4-8.2) Albumin 2.9 g/dL (3.4-5.0) Albumin/Globulin Ratio 0.7 (1.0-1.7) Urine Collection Type Unknown Urine Color Yellow Urine Clarity Cloudy Urine pH 7.0 (<5.0-8.0) Urine Specific [place] 1.015 (1.000-1.030) Urine Protein 30 mg/dL (NEG-TRACE) Urine Glucose (UA) Negative mg/dL (NEG) Urine Ketones (Stick) Negative mg/dL (NEG) Urine Blood Small (NEG) Urine Nitrite Positive (NEG) Urine Bilirubin Negative (NEG) Urine Urobilinogen Dipstick 0.2 mg/dL (0.2 mg/dL) Urine Leukocyte Esterase Large (NEG) Urine RBC 0 /HPF (0-2) Urine WBC >40 /HPF (0-4) Urine Squamous Epithelial Cells Few /LPF Urine Bacteria Moderate /HPF (0-FEW) Urine Hyaline Casts Few /HPF Urine Mucus Slight /LPF SARS-CoV-2 Antigen (Rapid) Negative (NEGATIVE) Assessment and Plan Assessmemt and Plan Problems Medical Problems: (1) Abnormal urinalysis Status: Acute (2) Community acquired pneumonia Status: Acute Comment Review of Relevant I have reviewed the following items ruby (where applicable) has been applied. Medications: Current Medications Medications (Trade) Dose Ordered Sig/Ernst Route PRN Reason Start Time Stop Time Status Last Admin Dose Admin Levofloxacin/ Dextrose 150 ml @ 100 mls/hr Q48H IV 07/19/21 19:00 07/19/21 19:36 Psyllium Hydrophilic Mucilloid (Metamucil Fiber Packet) 1 pkt QHS PO 07/19/21 21:00 07/19/21 21:39 Heparin Sodium (Porcine) (Heparin Sodium) 5,000 unit Q8HRS SQ 07/19/21 20:00 07/20/21 05:43 Benzonatate (Tessalon Perle) 100 mg [id number] PO 07/19/21 21:00 07/19/21 21:39 Gabapentin (Neurontin) 100 mg BID PO 07/19/21 23:00 07/19/21 23:15 Levothyroxine Sodium (Synthroid) 100 mcg [id number] PO 07/20/21 06:00 07/20/21 05:42 Atorvastatin Calcium (Lipitor) 10 mg QHS PO 07/19/21 23:00 07/19/21 23:15 Justifications for Admission Other Justification CRISTINA ALLEN MD Jul 20, 2021 07:12
[2021-07-20 07:52] LABS: BASO % 0 % (0-3); EOS # 0.1 x10^3/uL (0.0-0.7); EOS % 0 % (0-3); HEMATOCRIT 29.7 % (36.0-47.0); HEMOGLOBIN 9.6 g/dL (12.0-15.5); LYMPH # 2.2 x10^3/uL (1.0-4.8); LYMPH % 13 % (24-48); MEAN CORPUSCULAR HEMOGLOBIN 29 pg (25-35); MEAN CORPUSCULAR HGB CONC 32 g/dL (31-37); MEAN CORPUSCULAR VOLUME 89 fL (79-100); MONO # 1.5 x10^3/uL (0.0-1.1); MONO % 9 % (0-9); NEUT # 12.8 x10^3/uL (1.8-7.7); NEUT % 77 % (31-73); PLATELET COUNT 347 x10^3/uL (140-400); RED BLOOD COUNT 3.32 x10^6/uL (3.50-5.40); RED CELL DISTRIBUTION WIDTH 15.3 % (11.5-14.5); WHITE BLOOD COUNT 16.7 x10^3/uL (4.0-11.0)
[2021-07-20 08:08] LABS: ALBUMIN 2.5 g/dL (3.4-5.0); ALBUMIN/GLOBULIN RATIO 0.6 (1.0-1.7); CALCIUM 9.1 mg/dL (8.5-10.1); CREATININE 1.2 mg/dL (0.6-1.0); GFR 42.3; POTASSIUM 3.9 mmol/L (3.5-5.1); TOTAL BILIRUBIN 0.2 mg/dL (0.2-1.0)
--- NOTE | 2021-07-20 08:37 | PDOC ---
PULMONARY PROGRESS NOTES DATE: 07/20/21 TIME: 08:37 Vitals Vital Signs Date Time Temp Pulse Resp B/P (MAP) Pulse Ox O2 Delivery O2 Flow Rate FiO2 07/20/21 07:00 98.3 104 18 155/77 (103) 96 Room Air 98.3 07/19/21 19:45 96.0 Lungs: Clear, Other Labs Laboratory Tests Test 07/19/21 16:40 07/19/21 17:06 07/19/21 17:40 07/20/21 07:20 White Blood Count 17.6 x10^3/uL (4.0-11.0) 16.7 x10^3/uL (4.0-11.0) Red Blood Count 3.36 x10^6/uL (3.50-5.40) 3.32 x10^6/uL (3.50-5.40) Hemoglobin 9.6 g/dL (12.0-15.5) 9.6 g/dL (12.0-15.5) Hematocrit 30.3 % (36.0-47.0) 29.7 % (36.0-47.0) Mean Corpuscular Volume 90 fL (79-100) 89 fL (79-100) Mean Corpuscular Hemoglobin 29 pg (25-35) 29 pg (25-35) Mean Corpuscular Hemoglobin Concent 32 g/dL (31-37) 32 g/dL (31-37) Red Cell Distribution Width 15.8 % (11.5-14.5) 15.3 % (11.5-14.5) Platelet Count 329 x10^3/uL (140-400) 347 x10^3/uL (140-400) Neutrophils (%) (Auto) 72 % (31-73) 77 % (31-73) Lymphocytes (%) (Auto) 16 % (24-48) 13 % (24-48) Monocytes (%) (Auto) 10 % (0-9) 9 % (0-9) Eosinophils (%) (Auto) 1 % (0-3) 0 % (0-3) Basophils (%) (Auto) 1 % (0-3) 0 % (0-3) Neutrophils # (Auto) 12.6 x10^3/uL (1.8-7.7) 12.8 x10^3/uL (1.8-7.7) Lymphocytes # (Auto) 2.9 x10^3/uL (1.0-4.8) 2.2 x10^3/uL (1.0-4.8) Monocytes # (Auto) 1.7 x10^3/uL (0.0-1.1) 1.5 x10^3/uL (0.0-1.1) Eosinophils # (Auto) 0.1 x10^3/uL (0.0-0.7) 0.1 x10^3/uL (0.0-0.7) Basophils # (Auto) 0.2 x10^3/uL (0.0-0.2) 0.0 x10^3/uL (0.0-0.2) Segmented Neutrophils % 56 % (35-66) Band Neutrophils % 2 % (0-9) Lymphocytes % 27 % (24-48) Monocytes % 9 % (0-10) Eosinophils % 2 % (0-5) Basophils % 1 % (0-3) Myelocytes % 3 % (0-0) Platelet Estimate Adequate (ADEQUATE) Platelet Clumps, EDTA Present Large Platelets Present Polychromasia Present Poikilocytosis Slight Basophilic Stippling Present Anisocytosis Spherocytes Occ Tear Drop Cells Occ Ovalocytes Few Sabina Cells Occ Sodium Level 139 mmol/L (136-145) 137 mmol/L (136-145) Potassium Level 4.3 mmol/L (3.5-5.1) 3.9 mmol/L (3.5-5.1) Chloride Level 106 mmol/L (98-107) 106 mmol/L (98-107) Carbon Dioxide Level 19 mmol/L (21-32) 17 mmol/L (21-32) Anion Gap 14 (6-14) 14 (6-14) Blood Urea Nitrogen 25 mg/dL (7-20) 22 mg/dL (7-20) Creatinine 1.4 mg/dL (0.6-1.0) 1.2 mg/dL (0.6-1.0) Estimated GFR (Cockcroft-Gault) 35.4 42.3 BUN/Creatinine Ratio 18 (6-20) 18 (6-20) Glucose Level 93 mg/dL (70-99) 103 mg/dL (70-99) Lactic Acid Level 0.7 mmol/L (0.4-2.0) Calcium Level 8.7 mg/dL (8.5-10.1) 9.1 mg/dL (8.5-10.1) Total Bilirubin 0.2 mg/dL (0.2-1.0) 0.2 mg/dL (0.2-1.0) Aspartate Amino Transf (AST/SGOT) 48 U/L (15-37) 36 U/L (15-37) Alanine Aminotransferase (ALT/SGPT) 59 U/L (14-59) 52 U/L (14-59) Alkaline Phosphatase 236 U/L (46-116) 241 U/L (46-116) Creatine Kinase 57 U/L (26-192) Creatine Kinase MB (Mass) 1.3 ng/mL (0.0-3.6) Creatine Kinase MB Relative Index % (0-4) Troponin I Quantitative < 0.017 ng/mL (0.000-0.055) TT-Ehu-C-Type Natriuretic Peptide 927 pg/mL (0-449) Total Protein 6.8 g/dL (6.4-8.2) 7.0 g/dL (6.4-8.2) Albumin 2.9 g/dL (3.4-5.0) 2.5 g/dL (3.4-5.0) Albumin/Globulin Ratio 0.7 (1.0-1.7) 0.6 (1.0-1.7) Urine Collection Type Unknown Urine Color Yellow Urine Clarity Cloudy Urine pH 7.0 (<5.0-8.0) Urine Specific [place] 1.015 (1.000-1.030) Urine Protein 30 mg/dL (NEG-TRACE) Urine Glucose (UA) Negative mg/dL (NEG) Urine Ketones (Stick) Negative mg/dL (NEG) Urine Blood Small (NEG) Urine Nitrite Positive (NEG) Urine Bilirubin Negative (NEG) Urine Urobilinogen Dipstick 0.2 mg/dL (0.2 mg/dL) Urine Leukocyte Esterase Large (NEG) Urine RBC 0 /HPF (0-2) Urine WBC >40 /HPF (0-4) Urine Squamous Epithelial Cells Few /LPF Urine Bacteria Moderate /HPF (0-FEW) Urine Hyaline Casts Few /HPF Urine Mucus Slight /LPF SARS-CoV-2 Antigen (Rapid) Negative (NEGATIVE) Laboratory Tests Test 07/19/21 16:40 07/19/21 17:06 07/19/21 17:40 07/20/21 07:20 White Blood Count 17.6 x10^3/uL (4.0-11.0) 16.7 x10^3/uL (4.0-11.0) Red Blood Count 3.36 x10^6/uL (3.50-5.40) 3.32 x10^6/uL (3.50-5.40) Hemoglobin 9.6 g/dL (12.0-15.5) 9.6 g/dL (12.0-15.5) Hematocrit 30.3 % (36.0-47.0) 29.7 % (36.0-47.0) Mean Corpuscular Volume 90 fL (79-100) 89 fL (79-100) Mean Corpuscular Hemoglobin 29 pg (25-35) 29 pg (25-35) Mean Corpuscular Hemoglobin Concent 32 g/dL (31-37) 32 g/dL (31-37) Red Cell Distribution Width 15.8 % (11.5-14.5) 15.3 % (11.5-14.5) Platelet Count 329 x10^3/uL (140-400) 347 x10^3/uL (140-400) Neutrophils (%) (Auto) 72 % (31-73) 77 % (31-73) Lymphocytes (%) (Auto) 16 % (24-48) 13 % (24-48) Monocytes (%) (Auto) 10 % (0-9) 9 % (0-9) Eosinophils (%) (Auto) 1 % (0-3) 0 % (0-3) Basophils (%) (Auto) 1 % (0-3) 0 % (0-3) Neutrophils # (Auto) 12.6 x10^3/uL (1.8-7.7) 12.8 x10^3/uL (1.8-7.7) Lymphocytes # (Auto) 2.9 x10^3/uL (1.0-4.8) 2.2 x10^3/uL (1.0-4.8) Monocytes # (Auto) 1.7 x10^3/uL (0.0-1.1) 1.5 x10^3/uL (0.0-1.1) Eosinophils # (Auto) 0.1 x10^3/uL (0.0-0.7) 0.1 x10^3/uL (0.0-0.7) Basophils # (Auto) 0.2 x10^3/uL (0.0-0.2) 0.0 x10^3/uL (0.0-0.2) Segmented Neutrophils % 56 % (35-66) Band Neutrophils % 2 % (0-9) Lymphocytes % 27 % (24-48) Monocytes % 9 % (0-10) Eosinophils % 2 % (0-5) Basophils % 1 % (0-3) Myelocytes % 3 % (0-0) Platelet Estimate Adequate (ADEQUATE) Platelet Clumps, EDTA Present Large Platelets Present Polychromasia Present Poikilocytosis Slight Basophilic Stippling Present Anisocytosis Spherocytes Occ Tear Drop Cells Occ Ovalocytes Few Sabina Cells Occ Sodium Level 139 mmol/L (136-145) 137 mmol/L (136-145) Potassium Level 4.3 mmol/L (3.5-5.1) 3.9 mmol/L (3.5-5.1) Chloride Level 106 mmol/L (98-107) 106 mmol/L (98-107) Carbon Dioxide Level 19 mmol/L (21-32) 17 mmol/L (21-32) Anion Gap 14 (6-14) 14 (6-14) Blood Urea Nitrogen 25 mg/dL (7-20) 22 mg/dL (7-20) Creatinine 1.4 mg/dL (0.6-1.0) 1.2 mg/dL (0.6-1.0) Estimated GFR (Cockcroft-Gault) 35.4 42.3 BUN/Creatinine Ratio 18 (6-20) 18 (6-20) Glucose Level 93 mg/dL (70-99) 103 mg/dL (70-99) Lactic Acid Level 0.7 mmol/L (0.4-2.0) Calcium Level 8.7 mg/dL (8.5-10.1) 9.1 mg/dL (8.5-10.1) Total Bilirubin 0.2 mg/dL (0.2-1.0) 0.2 mg/dL (0.2-1.0) Aspartate Amino Transf (AST/SGOT) 48 U/L (15-37) 36 U/L (15-37) Alanine Aminotransferase (ALT/SGPT) 59 U/L (14-59) 52 U/L (14-59) Alkaline Phosphatase 236 U/L (46-116) 241 U/L (46-116) Creatine Kinase 57 U/L (26-192) Creatine Kinase MB (Mass) 1.3 ng/mL (0.0-3.6) Creatine Kinase MB Relative Index % (0-4) Troponin I Quantitative < 0.017 ng/mL (0.000-0.055) BP-Umm-I-Type Natriuretic Peptide 927 pg/mL (0-449) Total Protein 6.8 g/dL (6.4-8.2) 7.0 g/dL (6.4-8.2) Albumin 2.9 g/dL (3.4-5.0) 2.5 g/dL (3.4-5.0) Albumin/Globulin Ratio 0.7 (1.0-1.7) 0.6 (1.0-1.7) Urine Collection Type Unknown Urine Color Yellow Urine Clarity Cloudy Urine pH 7.0 (<5.0-8.0) Urine Specific [place] 1.015 (1.000-1.030) Urine Protein 30 mg/dL (NEG-TRACE) Urine Glucose (UA) Negative mg/dL (NEG) Urine Ketones (Stick) Negative mg/dL (NEG) Urine Blood Small (NEG) Urine Nitrite Positive (NEG) Urine Bilirubin Negative (NEG) Urine Urobilinogen Dipstick 0.2 mg/dL (0.2 mg/dL) Urine Leukocyte Esterase Large (NEG) Urine RBC 0 /HPF (0-2) Urine WBC >40 /HPF (0-4) Urine Squamous Epithelial Cells Few /LPF Urine Bacteria Moderate /HPF (0-FEW) Urine Hyaline Casts Few /HPF Urine Mucus Slight /LPF SARS-CoV-2 Antigen (Rapid) Negative (NEGATIVE) Medications Active Scripts Medications Dose Route/Sig Max Daily Dose Days Date Category Doxycycline Hyclate 100 Mg Tablet 1 Tab PO BID 5 05/23/21 Rx Gabapentin (Gabapentin) 100 Mg Capsule 100 Mg PO BID 05/11/21 Reported Cymbalta (Duloxetine Hcl) 30 Mg Capsule.dr 1 Cap PO DAILY 05/11/21 Reported Lovastatin 40 Mg Tablet 40 Mg PO HS 05/11/21 Reported Tizanidine Hcl 4 Mg Tablet 4 Mg PO DAILY 03/24/19 Reported Levothyroxine Sodium 100 Mcg Tablet 100 Mcg PO DAILY 03/24/19 Reported Folic Acid 1 Mg Tablet 1 Mg PO DAILY 12/04/13 Reported Impression . Full consult dictated Bilateral persistent interstitial infiltrates Repeat CT chest Possible bronchoscopy COURTNEY SANDOVAL MD Jul 20, 2021 08:37
[2021-07-20] MEDS: BENZONATATE 100 MG CAPSULE. PO SCH ×3 (09:00→21:10)
[2021-07-20] MEDS: DULoxetine HCL 30 MG CAPSULE.DR PO SCH (09:30)
[2021-07-20] MEDS: FOLIC ACID 1 MG TABLET. PO SCH (09:30)
[2021-07-20] MEDS: GABAPENTIN 100 MG CAPSULE. PO SCH ×2 (09:30→21:06)
[2021-07-20] MEDS ORDERED: ALBUTEROL SULFATE 2.5 MG/3 ML NEBU. NEB PRN (11:15)
[2021-07-20] MEDS: IPRATRPIUM/ALBUTEROL 0.5/2.5MG 3 ML NEBU. NEB SCH ×3 (11:51→20:27)
--- NOTE | 2021-07-20 16:07 | RAD ---
CT of the chest without contrast 07/20/2021 INDICATION: Infiltrates. COMPARISON STUDY: Chest radiograph, yesterday. CT chest May 12, 2021. TECHNIQUE: Multidetector CT imaging of the chest performed without contrast. Heart size is normal. No pericardial effusion is identified. No pathologically enlarged mediastinal a denopathy is identified. There is no pneumothorax or pleural effusion. Apical scarring is seen bilaterally. Mild patchy infilt rate in the right upper lobe is present which is significantly less than on prior CT. Left-sided infi ltrates are also improved. There is mild right middle lobe atelectasis, similar. Areas of mucous plug ging are seen in the lung bases, particularly on the left. Motion artifact is noted throughout the ex am. There is left medial basilar consolidation which could be atelectasis or multifocal pneumonia. Th is is new from prior exam. Limited visualization of the upper abdomen demonstrates no acute abnormali ty. No acute osseous changes are identified in the interim. IMPRESSION: 1. New left medial basilar consolidation which could be atelectasis or early lobar pneumonia. 2. Previously seen more diffuse pulmonary infiltrates are significant improved in the interim. CT DOSING PQRS STATEMENT: One or more of the following individualized dose reduction techniques were utilized for this examinat ion: 1. Automated exposure control 2. Adjustment of the mA and/or kV according to patient size 3. Use of iterative reconstruction technique Electronically signed by: Berny Hoskins MD (07/20/2021 4:05 PM) [id number]
--- NOTE | 2021-07-20 17:50 | CONS ---
DATE OF CONSULTATION: 07/20/2021 ATTENDING PHYSICIAN: Tripp Mc MD REASON FOR CONSULTATION: The patient is seen in pulmonary consultation at the request of Dr. Tucker for abnormal chest x-ray revealing some chronic changes, possible interstitial lung disease. HISTORY OF PRESENT ILLNESS: The patient is an 89-year-old that presented to the Emergency Room, stating that her home health nurse thought she might have pneumonia again. The patient had a low blood pressure at home. She also reported cough for the past 8 days, congestion. Denies fever, chills or night sweats. The patient was admitted. Chest x-ray was obtained. I personally reviewed and there are some chronic changes. There is also may be some increase in infiltrates. The patient states that she was hospitalized back in April with pneumonia. At that time, she was seen in pulmonary consultation by the Infectious Disease doctor, treated for pneumonia, was on cefepime and doxycycline. The patient states that after discharged home, she never felt like her pneumonia had improved. I reviewed her old charts. Her blood cultures are negative at the time. Back in April, she had a negative SARS-CoV-2, influenza was likewise negative. Her white count was initially mildly elevated. She now comes in with similar type of symptoms. She did have a CT chest back in April. I personally reviewed it. CT back in April revealed several findings including mild patchy nodular ground glass opacities. She had multifocal consolidation. To me it also appeared that she had some tree-in-bud formation. The patient is a nonsmoker. She did not grow up in a farm. She had no significant occupational or vocational exposures. She now denies fever or chills. She does not think that she is short of air with exertion. She goes up to 4 steps at home and does not become short of breath. PAST MEDICAL HISTORY: 1. Previously abnormal chest x-ray and CT chest revealing bilateral infiltrates. The patient was treated for pneumonia with no improvement on x-ray. 2. Chronic anemia. 3. Renal disease. 4. Diverticulosis. 5. Hypertension. 6. Rheumatoid arthritis. 7. History of cancer. PAST SURGICAL HISTORY: Appendectomy, cholecystectomy, tonsillectomy, colon resection, hysterectomy. FAMILY HISTORY: Noncontributory. SOCIAL HISTORY: She lives with her . She has never smoked. CURRENT MEDICATIONS: List was reviewed. She is currently receiving Levaquin in addition to nebulized treatments. She is also on home medications, heparin for DVT prophylaxis. Home medications list was reviewed. She was on lovastatin, gabapentin, Cymbalta, levothyroxine. ALLERGIES: PENICILLIN, MEPERIDINE, AND MORPHINE. PHYSICAL EXAMINATION: GENERAL: The patient appeared to be of stated age. She was in no respiratory distress. VITAL SIGNS: Since admission, she has been on room air, saturation greater than 92%. HEENT: Eyes, the sclerae were nonicteric. NECK: Jugular venous distention was not elevated. No lymphadenopathy. CHEST: Full expansion. LUNGS: She has crackles throughout both lung sales. CARDIOVASCULAR: Regular rate and rhythm with S1, S2, no S3. ABDOMEN: Soft. EXTREMITIES: No clubbing, cyanosis. No pitting edema. NEUROLOGIC: The patient was awake, alert, following commands. A detailed neuro exam was not performed. LABORATORY DATA: Serology negative for SARS-CoV-2. White count was 16,000, hemoglobin and hematocrit were noted. IMPRESSION: 1. Abnormal x-ray revealing some chronic changes, possibly a new infiltrate. 2. Progressive dyspnea. 3. Cough. 4. Multiple other comorbidities as listed above. DISCUSSION: Reviewing the CT of the chest from April and reviewing the current chest x-ray, I suspect the patient may have an atypical pneumonia such as Mycobacterium avium complex, possible Nocardia or actinomycosis. Recommend repeating CT chest, possible diagnostic bronchoscopy. For now, continue empiric antibiotics for bacterial pneumonia. I do appreciate the privilege in sharing in the patient's care. ALBINO/BOBY/NEERAJ DR: Kenisha TID: [id number]
[2021-07-20] MEDS: BUDESONIDE 0.5 MG/2 ML NEBU. NEB SCH (20:28)
[2021-07-20] MEDS: PSYLLIUM HUSK (SUGAR FREE) 1 PKT PACKET PO SCH (21:06)
[2021-07-20] MEDS: ATORVASTATIN CALCIUM 10 MG TABLET. PO SCH (21:06)
[2021-07-21 03:00] VITALS: BP 137/76
[2021-07-21] MEDS: LEVOTHYROXINE 100 MCG TABLET PO SCH (05:53)
[2021-07-21] MEDS: HEPARIN for SUB-Q USE 5,000 UNIT/ML VIAL. SQ SCH ×3 (05:54→21:34)
[2021-07-21 06:09] LABS: BASO # 0.1 x10^3/uL (0.0-0.2); BASO % 1 % (0-3); EOS # 0.1 x10^3/uL (0.0-0.7); EOS % 1 % (0-3); HEMATOCRIT 29.2 % (36.0-47.0); HEMOGLOBIN 9.2 g/dL (12.0-15.5); LYMPH # 4.2 x10^3/uL (1.0-4.8); LYMPH % 24 % (24-48); MEAN CORPUSCULAR HEMOGLOBIN 28 pg (25-35); MEAN CORPUSCULAR HGB CONC 32 g/dL (31-37); MEAN CORPUSCULAR VOLUME 90 fL (79-100); MONO # 1.7 x10^3/uL (0.0-1.1); MONO % 10 % (0-9); NEUT # 11.4 x10^3/uL (1.8-7.7); NEUT % 65 % (31-73); PLATELET COUNT 381 x10^3/uL (140-400); RED BLOOD COUNT 3.25 x10^6/uL (3.50-5.40); RED CELL DISTRIBUTION WIDTH 15.3 % (11.5-14.5); WHITE BLOOD COUNT 17.5 x10^3/uL (4.0-11.0)
[2021-07-21 07:00] VITALS: BP 137/63
[2021-07-21] MEDS: BUDESONIDE 0.5 MG/2 ML NEBU. NEB SCH ×2 (07:16→20:35)
[2021-07-21] MEDS: IPRATRPIUM/ALBUTEROL 0.5/2.5MG 3 ML NEBU. NEB SCH ×4 (07:16→20:35)
[2021-07-21] MEDS: DULoxetine HCL 30 MG CAPSULE.DR PO SCH (09:09)
[2021-07-21] MEDS: BENZONATATE 100 MG CAPSULE. PO SCH ×3 (09:09→21:13)
[2021-07-21] MEDS: FOLIC ACID 1 MG TABLET. PO SCH (09:09)
[2021-07-21] MEDS: GABAPENTIN 100 MG CAPSULE. PO SCH ×2 (09:09→21:13)
--- NOTE | 2021-07-21 09:53 | PDOC ---
PULMONARY PROGRESS NOTES DATE: 07/21/21 TIME: 09:53 Subjective Patient feels better, less short of air, less cough. Vitals Vital Signs Date Time Temp Pulse Resp B/P (MAP) Pulse Ox O2 Delivery O2 Flow Rate FiO2 07/21/21 07:33 100 Room Air 07/21/21 07:00 98.9 119 18 137/63 (87) 98.9 ROS: No Nausea, No Chest Pain, No Abdominal Pain General: Alert Lungs: Crackles Cardiovascular: S1, S2 Abdomen: Soft Neuro Exam: Alert, Oriented Extremities: No Edema Skin: Warm Labs Laboratory Tests Test 07/19/21 16:40 07/19/21 17:06 07/19/21 17:40 07/19/21 17:50 White Blood Count 17.6 x10^3/uL (4.0-11.0) Red Blood Count 3.36 x10^6/uL (3.50-5.40) Hemoglobin 9.6 g/dL (12.0-15.5) Hematocrit 30.3 % (36.0-47.0) Mean Corpuscular Volume 90 fL (79-100) Mean Corpuscular Hemoglobin 29 pg (25-35) Mean Corpuscular Hemoglobin Concent 32 g/dL (31-37) Red Cell Distribution Width 15.8 % (11.5-14.5) Platelet Count 329 x10^3/uL (140-400) Neutrophils (%) (Auto) 72 % (31-73) Lymphocytes (%) (Auto) 16 % (24-48) Monocytes (%) (Auto) 10 % (0-9) Eosinophils (%) (Auto) 1 % (0-3) Basophils (%) (Auto) 1 % (0-3) Neutrophils # (Auto) 12.6 x10^3/uL (1.8-7.7) Lymphocytes # (Auto) 2.9 x10^3/uL (1.0-4.8) Monocytes # (Auto) 1.7 x10^3/uL (0.0-1.1) Eosinophils # (Auto) 0.1 x10^3/uL (0.0-0.7) Basophils # (Auto) 0.2 x10^3/uL (0.0-0.2) Segmented Neutrophils % 56 % (35-66) Band Neutrophils % 2 % (0-9) Lymphocytes % 27 % (24-48) Monocytes % 9 % (0-10) Eosinophils % 2 % (0-5) Basophils % 1 % (0-3) Myelocytes % 3 % (0-0) Platelet Estimate Adequate (ADEQUATE) Platelet Clumps, EDTA Present Large Platelets Present Polychromasia Present Poikilocytosis Slight Basophilic Stippling Present Anisocytosis Spherocytes Occ Tear Drop Cells Occ Ovalocytes Few [place] Cells Occ Sodium Level 139 mmol/L (136-145) Potassium Level 4.3 mmol/L (3.5-5.1) Chloride Level 106 mmol/L (98-107) Carbon Dioxide Level 19 mmol/L (21-32) Anion Gap 14 (6-14) Blood Urea Nitrogen 25 mg/dL (7-20) Creatinine 1.4 mg/dL (0.6-1.0) Estimated GFR (Cockcroft-Gault) 35.4 BUN/Creatinine Ratio 18 (6-20) Glucose Level 93 mg/dL (70-99) Lactic Acid Level 0.7 mmol/L (0.4-2.0) Calcium Level 8.7 mg/dL (8.5-10.1) Total Bilirubin 0.2 mg/dL (0.2-1.0) Aspartate Amino Transf (AST/SGOT) 48 U/L (15-37) Alanine Aminotransferase (ALT/SGPT) 59 U/L (14-59) Alkaline Phosphatase 236 U/L (46-116) Creatine Kinase 57 U/L (26-192) Creatine Kinase MB (Mass) 1.3 ng/mL (0.0-3.6) Creatine Kinase MB Relative Index % (0-4) Troponin I Quantitative < 0.017 ng/mL (0.000-0.055) VV-Tlr-E-Type Natriuretic Peptide 927 pg/mL (0-449) Total Protein 6.8 g/dL (6.4-8.2) Albumin 2.9 g/dL (3.4-5.0) Albumin/Globulin Ratio 0.7 (1.0-1.7) Urine Collection Type Unknown Urine Color Yellow Urine Clarity Cloudy Urine pH 7.0 (<5.0-8.0) Urine Specific Hope 1.015 (1.000-1.030) Urine Protein 30 mg/dL (NEG-TRACE) Urine Glucose (UA) Negative mg/dL (NEG) Urine Ketones (Stick) Negative mg/dL (NEG) Urine Blood Small (NEG) Urine Nitrite Positive (NEG) Urine Bilirubin Negative (NEG) Urine Urobilinogen Dipstick 0.2 mg/dL (0.2 mg/dL) Urine Leukocyte Esterase Large (NEG) Urine RBC 0 /HPF (0-2) Urine WBC >40 /HPF (0-4) Urine Squamous Epithelial Cells Few /LPF Urine Bacteria Moderate /HPF (0-FEW) Urine Hyaline Casts Few /HPF Urine Mucus Slight /LPF SARS-CoV-2 Antigen (Rapid) Negative (NEGATIVE) SARS-CoV-2 RNA (ATILIO) Negative (Negative) Test 07/20/21 07:20 07/20/21 16:30 07/21/21 04:10 White Blood Count 16.7 x10^3/uL (4.0-11.0) 17.5 x10^3/uL (4.0-11.0) Red Blood Count 3.32 x10^6/uL (3.50-5.40) 3.25 x10^6/uL (3.50-5.40) Hemoglobin 9.6 g/dL (12.0-15.5) 9.2 g/dL (12.0-15.5) Hematocrit 29.7 % (36.0-47.0) 29.2 % (36.0-47.0) Mean Corpuscular Volume 89 fL (79-100) 90 fL (79-100) Mean Corpuscular Hemoglobin 29 pg (25-35) 28 pg (25-35) Mean Corpuscular Hemoglobin Concent 32 g/dL (31-37) 32 g/dL (31-37) Red Cell Distribution Width 15.3 % (11.5-14.5) 15.3 % (11.5-14.5) Platelet Count 347 x10^3/uL (140-400) 381 x10^3/uL (140-400) Neutrophils (%) (Auto) 77 % (31-73) 65 % (31-73) Lymphocytes (%) (Auto) 13 % (24-48) 24 % (24-48) Monocytes (%) (Auto) 9 % (0-9) 10 % (0-9) Eosinophils (%) (Auto) 0 % (0-3) 1 % (0-3) Basophils (%) (Auto) 0 % (0-3) 1 % (0-3) Neutrophils # (Auto) 12.8 x10^3/uL (1.8-7.7) 11.4 x10^3/uL (1.8-7.7) Lymphocytes # (Auto) 2.2 x10^3/uL (1.0-4.8) 4.2 x10^3/uL (1.0-4.8) Monocytes # (Auto) 1.5 x10^3/uL (0.0-1.1) 1.7 x10^3/uL (0.0-1.1) Eosinophils # (Auto) 0.1 x10^3/uL (0.0-0.7) 0.1 x10^3/uL (0.0-0.7) Basophils # (Auto) 0.0 x10^3/uL (0.0-0.2) 0.1 x10^3/uL (0.0-0.2) Sodium Level 137 mmol/L (136-145) Potassium Level 3.9 mmol/L (3.5-5.1) Chloride Level 106 mmol/L (98-107) Carbon Dioxide Level 17 mmol/L (21-32) Anion Gap 14 (6-14) Blood Urea Nitrogen 22 mg/dL (7-20) Creatinine 1.2 mg/dL (0.6-1.0) Estimated GFR (Cockcroft-Gault) 42.3 BUN/Creatinine Ratio 18 (6-20) Glucose Level 103 mg/dL (70-99) Calcium Level 9.1 mg/dL (8.5-10.1) Total Bilirubin 0.2 mg/dL (0.2-1.0) Aspartate Amino Transf (AST/SGOT) 36 U/L (15-37) Alanine Aminotransferase (ALT/SGPT) 52 U/L (14-59) Alkaline Phosphatase 241 U/L (46-116) C-Reactive Protein, Quantitative 183.7 mg/L (0-3.3) Total Protein 7.0 g/dL (6.4-8.2) Albumin 2.5 g/dL (3.4-5.0) Albumin/Globulin Ratio 0.6 (1.0-1.7) Erythrocyte Sedimentation Rate 117 (0-25) Laboratory Tests Test 07/20/21 16:30 07/21/21 04:10 Erythrocyte Sedimentation Rate 117 (0-25) White Blood Count 17.5 x10^3/uL (4.0-11.0) Red Blood Count 3.25 x10^6/uL (3.50-5.40) Hemoglobin 9.2 g/dL (12.0-15.5) Hematocrit 29.2 % (36.0-47.0) Mean Corpuscular Volume 90 fL (79-100) Mean Corpuscular Hemoglobin 28 pg (25-35) Mean Corpuscular Hemoglobin Concent 32 g/dL (31-37) Red Cell Distribution Width 15.3 % (11.5-14.5) Platelet Count 381 x10^3/uL (140-400) Neutrophils (%) (Auto) 65 % (31-73) Lymphocytes (%) (Auto) 24 % (24-48) Monocytes (%) (Auto) 10 % (0-9) Eosinophils (%) (Auto) 1 % (0-3) Basophils (%) (Auto) 1 % (0-3) Neutrophils # (Auto) 11.4 x10^3/uL (1.8-7.7) Lymphocytes # (Auto) 4.2 x10^3/uL (1.0-4.8) Monocytes # (Auto) 1.7 x10^3/uL (0.0-1.1) Eosinophils # (Auto) 0.1 x10^3/uL (0.0-0.7) Basophils # (Auto) 0.1 x10^3/uL (0.0-0.2) Medications Active Scripts Medications Dose Route/Sig Max Daily Dose Days Date Category Doxycycline Hyclate 100 Mg Tablet 1 Tab PO BID 5 05/23/21 Rx Gabapentin (Gabapentin) 100 Mg Capsule 100 Mg PO BID 05/11/21 Reported Cymbalta (Duloxetine Hcl) 30 Mg Capsule. 1 Cap PO DAILY 05/11/21 Reported Lovastatin 40 Mg Tablet 40 Mg PO HS 05/11/21 Reported Tizanidine Hcl 4 Mg Tablet 4 Mg PO DAILY 03/24/19 Reported Levothyroxine Sodium 100 Mcg Tablet 100 Mcg PO DAILY 03/24/19 Reported Folic Acid 1 Mg Tablet 1 Mg PO DAILY 12/04/13 Reported Impression . IMPRESSION: 1. Abnormal x-ray revealing some chronic changes, possibly a new infiltrate. 2. Progressive dyspnea. 3. Cough. 4. Multiple other comorbidities as listed above. 5. New left lower lobe consolidation, mild, seen on CT chest CT chest, 07/20 IMPRESSION: 1. New left medial basilar consolidation which could be atelectasis or early lobar pneumonia. 2. Previously seen more diffuse pulmonary infiltrates are significant improved in the interim. Plan . Updated 07/[address] Tucker and family, CT reviewed, much improved, no need for bronchoscopy Continue empiric antibiotics Possible dry discharge home for [facility] unit in 24 to 48 hours Discussed with and daughter at the bedside 07/20 DISCUSSION: Reviewing the CT of the chest from April and reviewing the current chest x-ray, I suspect the patient may have an atypical pneumonia such as Mycobacterium avium complex, possible Nocardia or actinomycosis. Recommend repeating CT chest, possible diagnostic bronchoscopy. For now, continue empiric antibiotics for bacterial pneumonia. I do appreciate the privilege in sharing in the patient's care. COURTNEY SANDOVAL MD Jul 21, 2021 09:53
[2021-07-21 11:06] VITALS: BP 108/58
--- NOTE | 2021-07-21 11:17 | PDOC ---
[employer] PROGRESS NOTE Date of Service DOS: DATE: 07/21/21 TIME: 11:17 Chief Complaint Chief Complaint A/P: Cough - with Shortness of breath - interstitial changes. This is likely gram negative pneumonia given her history of RA on methotrexate is high risk for structural lung disease infections Will place on empiric levaquin. If she worsens would add cefepime. Pulm consult for possible ILD as well Community acquire pneumonia - with Abnormal chest radiograph - pneumonia Likely gram-negative pneumonia Sepsis - due to pneumonia and likely UTI as well. Empiric levaquin coverage, fluids given Frequent falls with Progressive weakness and debility - Unable to walk well currently. PT/OT PACs - will monitor, not in atrial arrhythmia Mild SHOAIB on CKD - previously with abnormal renal function, this is likely her new baseline around 1.2, did improve from 1.4 on admit Diarrhea - likely malabsorption related to prior bowel resection. Will check c. difficile given the volume and frequency Transaminitis - likely RA related Migraines - previously on topiramate, sees neuro outpatient, discussed holding topiramate. Can use low dose compazine for breakthrough headaches HLD - on statin RA - on weekly MTX, will hold. Anemia of chronic disease - likely 2/2 above RA H/o colon CA s/p 3x colon resection - with multiple other abdominal surgeries Severe protein calorie malnutrition - turnstile attendant advice appreciated FEN - Cardiac diet PPX - heparin CODE - DNR/DNI Dispo - inpatient med monitor History of Present Illness History of Present Illness Ms Castro is an 88yo F w/ PMHx Migraines, HLD, RA, anemia of chronic disease, colon CA s/p 3x colon resection who is brought to ED via her daughter due to progressive shortness of breath and cough at home. She notes worsening of her cough 5 days ago, but notes she has had a cough for about 8 days and she was seen in ED 6 days prior to her visit for a fall with scalp laceration approxima sammie well with mckenzie and had a slight cough at that time, it has worsened since then. Cough is productive of thick rodgers sputum. She has had subjective fever and chills. She has chronic diarrhea which has been stable, no nausea and vomiting. Her daughter was told by her home health nurse that she had abnormal breath sounds and a low blood pressure at home. Patient denies abdominal pains, nausea, vomiting, no chest pain. No recent changes in home medications, she and her daughter do not recall if/when she has her methotrexate or if she still gets it, daughter notes she has her own health problems and she has moved in with her mother to help each other. Chest radiograph with bilateral infrahilar interstitial infiltrates and possible chronic interstitial changes. EKG sinus rhythm, rate of 96bpm with PACs, CA 0.12, QTc 466, no ST elevations or TWI. Labs with WBC 17.6, Hb 9.6, platelets 329, Na 139, K 4.3, BUN 25, Cr 1.4, glucose 93, Ca 8.7, bili 0.2, AST 48, ALT 59, Alk phos 236, NT-Pro-BNP 927, trop 0, Albumin 2.9, lactic acid 0.7, and UA with positive leukocyte esterase and positive nitrites Started on empiric levaquin and Admitted for further care. 07/20: Afebrile overnight. Cough improved slightly. COVID-19 returned negative. Not hypoxic. Some pain on urination. She is able to increase free water intake. No chest pain but still very short of breath and weak. Pulmonology consulted. CT chest with left lower lobe infiltrate Afebrile. Still with productive cough feels a little better. Urine with 100,000 CFU gram-negative rods. Still very weak. Vitals/I&O Vitals/I&O: Vital Signs Date Time Temp Pulse Resp B/P (MAP) Pulse Ox O2 Delivery O2 Flow Rate FiO2 07/21/21 11:06 97.2 117 16 108/58 (75) 98 Room Air 97.2 I & O 07/20/21 07/20/21 07/21/21 15:00 23:00 07:00 Intake Total 120 ml 350 ml 0 ml Output Total 250 ml Balance 120 ml 100 ml 0 ml Physical Exam General: Alert, Oriented X3, Cooperative, moderate distress Lungs: Clear, Other Abdomen: Normal bowel sounds, Soft, No tenderness, No hepatosplenomegaly, No masses Extremities: No clubbing, No cyanosis, No edema, Normal pulses, No tenderness/swelling Skin: No rashes, No breakdown, No significant lesion Labs Labs: Laboratory Tests Test 07/20/21 16:30 07/21/21 04:10 Erythrocyte Sedimentation Rate 117 (0-25) White Blood Count 17.5 x10^3/uL (4.0-11.0) Red Blood Count 3.25 x10^6/uL (3.50-5.40) Hemoglobin 9.2 g/dL (12.0-15.5) Hematocrit 29.2 % (36.0-47.0) Mean Corpuscular Volume 90 fL (79-100) Mean Corpuscular Hemoglobin 28 pg (25-35) Mean Corpuscular Hemoglobin Concent 32 g/dL (31-37) Red Cell Distribution Width 15.3 % (11.5-14.5) Platelet Count 381 x10^3/uL (140-400) Neutrophils (%) (Auto) 65 % (31-73) Lymphocytes (%) (Auto) 24 % (24-48) Monocytes (%) (Auto) 10 % (0-9) Eosinophils (%) (Auto) 1 % (0-3) Basophils (%) (Auto) 1 % (0-3) Neutrophils # (Auto) 11.4 x10^3/uL (1.8-7.7) Lymphocytes # (Auto) 4.2 x10^3/uL (1.0-4.8) Monocytes # (Auto) 1.7 x10^3/uL (0.0-1.1) Eosinophils # (Auto) 0.1 x10^3/uL (0.0-0.7) Basophils # (Auto) 0.1 x10^3/uL (0.0-0.2) Assessment and Plan Assessmemt and Plan Problems Medical Problems: (1) Abnormal urinalysis Status: Acute (2) Community acquired pneumonia Status: Acute Comment Review of Relevant I have reviewed the following items ruby (where applicable) has been applied. Medications: Current Medications Medications (Trade) Dose Ordered Sig/Ernst Route PRN Reason Start Time Stop Time Status Last Admin Dose Admin Budesonide (Pulmicort) 0.5 mg RTBID [facility] 07/20/21 20:00 07/21/21 07:16 Albuterol/ Ipratropium (Duoneb) 3 ml RTQID [facility] 07/20/21 12:00 07/21/21 11:10 Justifications for Admission Other Justification CRISTINA ALLEN MD Jul 21, 2021 11:17
[2021-07-21] MEDS: CEFEPIME HCL IV Push 1 GM VIAL. IVP SCH (12:41)
[2021-07-21 15:27] VITALS: BP 139/64
[2021-07-21 19:00] VITALS: BP 146/46
[2021-07-21] MEDS: PSYLLIUM HUSK (SUGAR FREE) 1 PKT PACKET PO SCH (21:13)
[2021-07-21] MEDS: ATORVASTATIN CALCIUM 10 MG TABLET. PO SCH (21:13)
[2021-07-21 23:00] VITALS: BP 134/70
[2021-07-22 03:00] VITALS: BP 99/53
[2021-07-22] MEDS: LEVOTHYROXINE 100 MCG TABLET PO SCH (06:28)
[2021-07-22] MEDS: HEPARIN for SUB-Q USE 5,000 UNIT/ML VIAL. SQ SCH ×2 (06:30→14:33)
[2021-07-22 07:00] VITALS: BP 149/73
[2021-07-22 07:35] LABS: BASO # 0.1 x10^3/uL (0.0-0.2); BASO % 0 % (0-3); EOS # 0.2 x10^3/uL (0.0-0.7); EOS % 1 % (0-3); HEMATOCRIT 29.2 % (36.0-47.0); HEMOGLOBIN 9.5 g/dL (12.0-15.5); LYMPH # 2.6 x10^3/uL (1.0-4.8); LYMPH % 18 % (24-48); MEAN CORPUSCULAR HEMOGLOBIN 29 pg (25-35); MEAN CORPUSCULAR HGB CONC 33 g/dL (31-37); MEAN CORPUSCULAR VOLUME 89 fL (79-100); MONO # 1.5 x10^3/uL (0.0-1.1); MONO % 10 % (0-9); NEUT % 70 % (31-73); PLATELET COUNT 391 x10^3/uL (140-400); RED BLOOD COUNT 3.29 x10^6/uL (3.50-5.40); RED CELL DISTRIBUTION WIDTH 15.9 % (11.5-14.5); WHITE BLOOD COUNT 14.4 x10^3/uL (4.0-11.0)
[2021-07-22 07:59] LABS: CALCIUM 8.8 mg/dL (8.5-10.1); CREATININE 1.3 mg/dL (0.6-1.0); GFR 38.6; POTASSIUM 4.3 mmol/L (3.5-5.1)
[2021-07-22] MEDS: IPRATRPIUM/ALBUTEROL 0.5/2.5MG 3 ML NEBU. NEB SCH ×3 (08:05→15:06)
[2021-07-22] MEDS: BUDESONIDE 0.5 MG/2 ML NEBU. NEB SCH (08:05)
[2021-07-22] MEDS: GABAPENTIN 100 MG CAPSULE. PO SCH (08:48)
[2021-07-22] MEDS: FOLIC ACID 1 MG TABLET. PO SCH (08:48)
[2021-07-22] MEDS: DULoxetine HCL 30 MG CAPSULE.DR PO SCH (08:48)
[2021-07-22] MEDS: BENZONATATE 100 MG CAPSULE. PO SCH ×2 (08:48→14:29)
--- NOTE | 2021-07-22 09:22 | PDOC ---
PULMONARY PROGRESS NOTES DATE: 07/22/21 TIME: 09:22 Subjective Patient appetite has improved patient feels better, less short of air, less cough. Vitals Vital Signs Date Time Temp Pulse Resp B/P (MAP) Pulse Ox O2 Delivery O2 Flow Rate FiO2 07/22/21 08:05 98 Room Air 07/22/21 07:00 98.8 120 18 149/73 (98) 98.8 07/22/21 03:00 96.0 ROS: No Nausea, No Chest Pain, No Abdominal Pain General: Alert Lungs: Crackles Cardiovascular: S1, S2 Abdomen: Soft Neuro Exam: Alert, Oriented Extremities: No Edema Skin: Warm Labs Laboratory Tests Test 07/20/21 16:30 07/21/21 04:10 07/22/21 06:15 Erythrocyte Sedimentation Rate 117 (0-25) White Blood Count 17.5 x10^3/uL (4.0-11.0) 14.4 x10^3/uL (4.0-11.0) Red Blood Count 3.25 x10^6/uL (3.50-5.40) 3.29 x10^6/uL (3.50-5.40) Hemoglobin 9.2 g/dL (12.0-15.5) 9.5 g/dL (12.0-15.5) Hematocrit 29.2 % (36.0-47.0) 29.2 % (36.0-47.0) Mean Corpuscular Volume 90 fL (79-100) 89 fL (79-100) Mean Corpuscular Hemoglobin 28 pg (25-35) 29 pg (25-35) Mean Corpuscular Hemoglobin Concent 32 g/dL (31-37) 33 g/dL (31-37) Red Cell Distribution Width 15.3 % (11.5-14.5) 15.9 % (11.5-14.5) Platelet Count 381 x10^3/uL (140-400) 391 x10^3/uL (140-400) Neutrophils (%) (Auto) 65 % (31-73) 70 % (31-73) Lymphocytes (%) (Auto) 24 % (24-48) 18 % (24-48) Monocytes (%) (Auto) 10 % (0-9) 10 % (0-9) Eosinophils (%) (Auto) 1 % (0-3) 1 % (0-3) Basophils (%) (Auto) 1 % (0-3) 0 % (0-3) Neutrophils # (Auto) 11.4 x10^3/uL (1.8-7.7) 10.0 x10^3/uL (1.8-7.7) Lymphocytes # (Auto) 4.2 x10^3/uL (1.0-4.8) 2.6 x10^3/uL (1.0-4.8) Monocytes # (Auto) 1.7 x10^3/uL (0.0-1.1) 1.5 x10^3/uL (0.0-1.1) Eosinophils # (Auto) 0.1 x10^3/uL (0.0-0.7) 0.2 x10^3/uL (0.0-0.7) Basophils # (Auto) 0.1 x10^3/uL (0.0-0.2) 0.1 x10^3/uL (0.0-0.2) Sodium Level 139 mmol/L (136-145) Potassium Level 4.3 mmol/L (3.5-5.1) Chloride Level 106 mmol/L (98-107) Carbon Dioxide Level 21 mmol/L (21-32) Anion Gap 12 (6-14) Blood Urea Nitrogen 29 mg/dL (7-20) Creatinine 1.3 mg/dL (0.6-1.0) Estimated GFR (Cockcroft-Gault) 38.6 Glucose Level 95 mg/dL (70-99) Calcium Level 8.8 mg/dL (8.5-10.1) Laboratory Tests Test 07/22/21 06:15 White Blood Count 14.4 x10^3/uL (4.0-11.0) Red Blood Count 3.29 x10^6/uL (3.50-5.40) Hemoglobin 9.5 g/dL (12.0-15.5) Hematocrit 29.2 % (36.0-47.0) Mean Corpuscular Volume 89 fL (79-100) Mean Corpuscular Hemoglobin 29 pg (25-35) Mean Corpuscular Hemoglobin Concent 33 g/dL (31-37) Red Cell Distribution Width 15.9 % (11.5-14.5) Platelet Count 391 x10^3/uL (140-400) Neutrophils (%) (Auto) 70 % (31-73) Lymphocytes (%) (Auto) 18 % (24-48) Monocytes (%) (Auto) 10 % (0-9) Eosinophils (%) (Auto) 1 % (0-3) Basophils (%) (Auto) 0 % (0-3) Neutrophils # (Auto) 10.0 x10^3/uL (1.8-7.7) Lymphocytes # (Auto) 2.6 x10^3/uL (1.0-4.8) Monocytes # (Auto) 1.5 x10^3/uL (0.0-1.1) Eosinophils # (Auto) 0.2 x10^3/uL (0.0-0.7) Basophils # (Auto) 0.1 x10^3/uL (0.0-0.2) Sodium Level 139 mmol/L (136-145) Potassium Level 4.3 mmol/L (3.5-5.1) Chloride Level 106 mmol/L (98-107) Carbon Dioxide Level 21 mmol/L (21-32) Anion Gap 12 (6-14) Blood Urea Nitrogen 29 mg/dL (7-20) Creatinine 1.3 mg/dL (0.6-1.0) Estimated GFR (Cockcroft-Gault) 38.6 Glucose Level 95 mg/dL (70-99) Calcium Level 8.8 mg/dL (8.5-10.1) Medications Active Scripts Medications Dose Route/Sig Max Daily Dose Days Date Category Doxycycline Hyclate 100 Mg Tablet 1 Tab PO BID 5 05/23/21 Rx Gabapentin (Gabapentin) 100 Mg Capsule 100 Mg PO BID 05/11/21 Reported Cymbalta (Duloxetine Hcl) 30 Mg Capsule.dr 1 Cap PO DAILY 05/11/21 Reported Lovastatin 40 Mg Tablet 40 Mg PO HS 05/11/21 Reported Tizanidine Hcl 4 Mg Tablet 4 Mg PO DAILY 03/24/19 Reported Levothyroxine Sodium 100 Mcg Tablet 100 Mcg PO DAILY 03/24/19 Reported Folic Acid 1 Mg Tablet 1 Mg PO DAILY 12/04/13 Reported Impression . IMPRESSION: 1. Abnormal x-ray revealing some chronic changes, possibly a new infiltrate. 2. Progressive dyspnea. 3. Cough. 4. Multiple other comorbidities as listed above. 5. New left lower lobe consolidation, mild, seen on CT chest CT chest, 07/20 IMPRESSION: 1. New left medial basilar consolidation which could be atelectasis or early lobar pneumonia. 2. Previously seen more diffuse pulmonary infiltrates are significant improved in the interim. Plan . Updated 07/22 UA I&D pending Continue empiric antibiotics Patient informed that chronic cough will improve, will never get much better, she does have chronic bronchitis seen on CT chest updated 07/[address] Tucker and family, CT reviewed, much improved, no need for bronchoscopy Continue empiric antibiotics Possible dry discharge home for intermediate unit in 24 to 48 hours Discussed with and daughter at the bedside COURTNEY SANDOVAL MD Jul 22, 2021 09:22
[2021-07-22 11:00] VITALS: BP 132/52
[2021-07-22] MEDS: CEFEPIME HCL IV Push 1 GM VIAL. IVP SCH (12:04)
[2021-07-22] MEDS ORDERED: LEVO500T9 PO (12:43)
[2021-07-22] MEDS ORDERED: ALBU2.5V8 IH (12:48)
--- NOTE | 2021-07-22 12:49 | SNU/HH DC ---
DISCHARGE WITH HOME HEALTH DISCHARGE INFORMATION: Discharge Date: Jul 22, 2021 Final Diagnosis: Problems Medical Problems: (1) Abnormal urinalysis Status: Acute (2) Community acquired pneumonia Status: Acute Condition on Discharge: Stable CODE STATUS: Code Status: DNR/DNI HOME HEALTH: Face to Face: I certify this patient is under my care and that I, or a nurse practitioner or physician's corporate legal assistant working with me, had a face to face encounter that meets the physician face to face encounter requirements with this patient on 07/22/2021. Medical Complications: COPD Fpc For: Medication Management RN For Eval/Treatment: Yes Physical Therapy For: Evalulation/Treatment Occupational Therapy For: Evaluation/Treatment Pt Meets Homebound Status: Extreme weakness w/ amb. POST DISCHARGE ORDERS: Activity Instructions for Disc: Activity as tolerated Weight Bearing Status after Di: As tolerated DIET AFTER DISCHARGE: Cardiac Wound/Incision Care: No wound care needed CHECKS AFTER DISCHARGE: Checks after discharge: Check blood press - daily, Check your Temp as needed FOLLOW-UP: Additional Instructions: Oneyda Singleton, and Alicia [address], [address] [place] [address] TREATMENT/EQUIPMENT ORDERS: Adaptive Equipment Issued: None CERTIFICATION STATEMENT: Certification Statement: Certification Statement: Based on the above finding, I certify that this patient is confined to the home and needs intermittent snf care, physical therapy and/or speech therapy, or continues to need occupational therapy.~ This patient is under my care, and I have initiated the establishment of the plan of care.~ This patient will be followed by myself or a community physician who will periodically review the plan of care. Home Meds Active Scripts Albuterol Sulfate (PROAIR HFA INHALER) 8.5 Gm Hfa.aer.ad, 2 PUFF IH PRN Q4-6HRS PRN for wheezing for 21 Days, #1 INHALER 5 Refills Prov:CRISTINA ALLEN MD 07/22/21 Levofloxacin (LEVOFLOXACIN) 500 Mg Tablet, 1 TAB PO QODAY for UTI/Pneumonia for 3 Days, #2 TAB Prov:CRISTINA ALLEN MD 07/22/21 Reported Medications Gabapentin (GABAPENTIN ) 100 Mg Capsule, 100 MG PO BID for NEUROGENIC PAIN, CAP 05/11/21 Duloxetine Hcl (CYMBALTA) 30 Mg Capsule.dr, 1 CAP PO DAILY for mood, #30 CAP 5 Refills 05/11/21 Lovastatin (LOVASTATIN) 40 Mg Tablet, 40 MG PO HS for cholesterol, TAB 05/11/21 Tizanidine Hcl (TIZANIDINE HCL) 4 Mg Tablet, 4 MG PO DAILY for muscle spasms 03/24/19 Levothyroxine Sodium (LEVOTHYROXINE SODIUM) 100 Mcg Tablet, 100 MCG PO DAILY for hypothyroid 03/24/19 Folic Acid (FOLIC ACID) 1 Mg Tablet, 1 MG PO DAILY 12/04/13 Discontinued Scripts Doxycycline Hyclate (DOXYCYCLINE HYCLATE) 100 Mg Tablet, 1 TAB PO BID for pneumonia for 5 Days, #10 TAB Prov:SARTHAK PARKS MD 05/23/21 CRISTINA ALLEN MD Jul 22, 2021 12:49
[2021-07-22 15:00] VITALS: BP 154/63
--- NOTE | 2021-07-22 16:53 | NUR ---
Pt left unit at 1650 by wheelchair via private vehicle, accompanied by daughter. Pt's VSS, IV removed without complications. Discharge paperwork discussed with pt and daughter. Additional questions addressed.
[2021-07-22 18:29] LABS: ANA INTERP Negative (.)
--- NOTE | 2021-08-04 11:58 | PDOC3 ---
Discharge Summary Visit Information Date of Admission: Jul 19, 2021 Date of Discharge: Jul 22, 2021 Admitting Diagnosis: Community acquired pneumonia Final Diagnosis Problems Medical Problems: (1) Abnormal urinalysis Status: Acute (2) Community acquired pneumonia Status: Acute Brief Hospital Course Allergies Allergies Coded Allergies Type Severity Reaction Last Updated Verified Penicillins Allergy Intermediate Hives 07/19/21 Yes meperidine Allergy Intermediate HAS TOLERATED FENTANYL 07/19/21 Yes morphine Adverse Reaction Intermediate PT STATED MORPHINE ALLERGIE, BUT STATES IT JUST "UPSETS" HER 07/19/21 Yes Brief Hospital Course Ms Castro is an 88yo F w/ PMHx Migraines, HLD, RA, anemia of chronic disease, colon CA s/p 3x colon resection who is brought to ED via her daughter due to progressive shortness of breath and cough at home. She notes worsening of her cough 5 days ago, but notes she has had a cough for about 8 days and she was seen in ED 6 days prior to her visit for a fall with scalp laceration approximated well with mckenzie and had a slight cough at that time, it has worsened since then. Cough is productive of thick rodgers sputum. She has had subjective fever and chills. She has chronic diarrhea which has been stable, no nausea and vomiting. Her daughter was told by her home health nurse that she had abnormal breath sounds and a low blood pressure at home. Patient denies abdominal pains, nausea, vomiting, no chest pain. No recent changes in home medications, she and her daughter do not recall if/when she has her methotrexate or if she still gets it, daughter notes she has her own health problems and she has moved in with her mother to help each other. Chest radiograph with bilateral infrahilar interstitial infiltrates and possible chronic interstitial changes. EKG sinus rhythm, rate of 96bpm with PACs, NJ 0.12, QTc 466, no ST elevations or TWI. Labs with WBC 17.6, Hb 9.6, platelets 329, Na 139, K 4.3, BUN 25, Cr 1.4, glucose 93, Ca 8.7, bili 0.2, AST 48, ALT 59, Alk phos 236, NT-Pro-BNP 927, trop 0, Albumin 2.9, lactic acid 0.7, and UA with positive leukocyte esterase and positive nitrites Started on empiric levaquin and Admitted for further care. Consults: Pulmonology 07/20: Afebrile overnight. Cough improved slightly. COVID-19 returned negative. Not hypoxic. Some pain on urination. She is able to increase free water intake. No chest pain but still very short of breath and weak. Pulmonology consulted. CT chest with left lower lobe infiltrate 07/21: Afebrile. Still with productive cough feels a little better. Urine with 100,000 CFU gram-negative rods. Still very weak. 07/22: Day of discharge. Vital signs 97.7 F pulse 64 bpm respirations 18/min with O2 saturations 94% on room air blood pressure 154/63 Worked with physical therapy occupational therapy recommended home with home health would be okay. Final urine culture returned with Proteus mirabilis sensitive to cephalosporins sent home on every other day Levaquin for 3 additional doses and outpatient follow-up with pulmonology. Given strict instructions for return if symptoms worsen. Physical Exam General: Alert, Oriented X3, Cooperative, no distress Lungs: Bibasilar crakles, scattered wheezing Abdomen: Normal bowel sounds, Soft, No tenderness, No hepatosplenomegaly, No masses Extremities: No clubbing, No cyanosis, No edema, Normal pulses, No tenderness/swelling Skin: No rashes, No breakdown, No significant lesion Problem list: Cough - with Shortness of breath - interstitial changes. This is likely gram negative pneumonia given her history of RA on methotrexate is high risk for structural lung disease infections Will place on empiric levaquin. If she worsens would add cefepime. Pulm consult for possible ILD as well Community acquire pneumonia - with Abnormal chest radiograph - pneumonia Likely gram-negative pneumonia Sepsis - Resolved. due to pneumonia and likely UTI as well. Empiric levaquin coverage, fluids given Frequent falls with Progressive weakness and debility - Unable to walk well currently. PT/OT PACs - will monitor, not in atrial arrhythmia Mild SHOAIB on CKD - previously with abnormal renal function, this is likely her new baseline around 1.2, did improve from 1.4 on admit Diarrhea - likely malabsorption related to prior bowel resection. Will check c. difficile given the volume and frequency Transaminitis - likely RA related Migraines - previously on topiramate, sees neuro outpatient, discussed holding topiramate. Can use low dose compazine for breakthrough headaches HLD - on statin RA - on weekly MTX, will hold. Notes her RA is burned out and she has been off MTX Anemia of chronic disease - likely 2/2 above RA H/o colon CA s/p 3x colon resection - with multiple other abdominal surgeries Severe protein calorie malnutrition - cycle consultant advice appreciated FEN - Cardiac diet CODE - DNR/DNI Dispo - Greater than 30 minutes spent on discharge home with home health Oneyda Singleton, and Alicia [address], [address] [place] [address] Discharge Information Condition at Discharge: Improved Follow Up: Weeks (2) Disposition/Orders: D/C to Home w/ HH Scheduled Duloxetine Hcl (Cymbalta) 30 Mg Capsule.dr, 1 CAP PO DAILY for mood, #30 Ref 5 (Reported) Entered as Reported by: DRE BADILLO on 05/11/21344 Last Action: Continued on 07/19/212210 by CRISTINA ALLEN MD Folic Acid (Folic Acid) 1 Mg Tablet, 1 MG PO DAILY, (Reported) Entered as Reported by: JAMES LUCIA on 12/04/13 1628 Last Action: Continued on 07/19/212210 by CRISTINA ALLEN MD Gabapentin (Gabapentin ) 100 Mg Capsule, 100 MG PO BID for NEUROGENIC PAIN, (Reported) Entered as Reported by: DRE BADILLO on 05/11/21344 Last Action: Continued on 07/19/212210 by CRISTINA ALLEN MD Levofloxacin (Levofloxacin) 500 Mg Tablet, 1 TAB PO QODAY for UTI/Pneumonia for 3 Days, #2 Prescribed by: CRISTINA ALLEN MD on 07/22/21 1243 Levothyroxine Sodium (Levothyroxine Sodium) 100 Mcg Tablet, 100 MCG PO DAILY for hypothyroid, (Reported) Entered as Reported by: NICHELLE STEINER on 03/24/191999 Last Action: Continued on 07/19/212210 by CRISTINA ALLEN MD Lovastatin (Lovastatin) 40 Mg Tablet, 40 MG PO HS for cholesterol, (Reported) Entered as Reported by: DRE BADILLO on 05/11/21344 Last Action: Converted on 07/19/212210 by CRISTINA ALLEN MD Tizanidine Hcl (Tizanidine Hcl) 4 Mg Tablet, 4 MG PO DAILY for muscle spasms, (Reported) Entered as Reported by: NICHELLE STEINER on 03/24/191999 Scheduled PRN Albuterol Sulfate (Proair Hfa Inhaler) 8.5 Gm Hfa.aer.ad, 2 PUFF IH PRN Q4-6HRS PRN for wheezing for 21 Days, #1 Ref 5 Prescribed by: CRISTINA ALLEN MD on 07/22/21 1248 Justicifation of Admission Dx: Justifications for Admission: Justification of Admission Dx: Yes CRISTINA ALLEN MD Aug 04, 2021 11:58
== END 2021-07-22 16:56 | disposition home health service (06) | DRG 871 ==
LOC: ER 12:08 → 5 NORTH 18:50
PROVIDERS: ADMIT Internal Medicine; ATTEND Internal Medicine
DX: A41.9 Sepsis, unspecified organism (principal); E43 Unspecified severe protein-calorie malnutrition; J18.9 Pneumonia, unspecified organism; Z68.1 Body mass index [BMI] 19.9 or less, adult; N17.9 Acute kidney failure, unspecified; D63.8 Anemia in other chronic diseases classified elsewhere; E03.9 Hypothyroidism, unspecified; E78.5 Hyperlipidemia, unspecified; I12.9 Hypertensive chronic kidney disease with stage 1 through stage 4 chronic kidney disease, or unspecified chronic kidney disease; M06.9 Rheumatoid arthritis, unspecified; N18.9 Chronic kidney disease, unspecified; G43.909 Migraine, unspecified, not intractable, without status migrainosus; M19.90 Unspecified osteoarthritis, unspecified site; R74.01 Elevation of levels of liver transaminase levels; R19.7 Diarrhea, unspecified; Z66 Do not resuscitate; Z85.038 Personal history of other malignant neoplasm of large intestine; Z90.49 Acquired absence of other specified parts of digestive tract; Z90.710 Acquired absence of both cervix and uterus; Z79.899 Other long term (current) drug therapy; Z88.5 Allergy status to narcotic agent; Z88.0 Allergy status to penicillin; Z88.8 Allergy status to other drugs, medicaments and biological substances
CPT/HCPCS: 36415; 71045; 71250; 80048; 80053; 81001; 82553; 83605; 83880; 84484; 85007; 85025; 85651; 86038; 86140; 87040; 87077; 87086; 87186; 87426; 87449; 93005; 94640; 94760; 96365; J0692; J1644; J1956; U0003; U0005; 97116-GP; 97530-GP; 97535-GO; 99285-25; G0378; J7626